=== PATIENT | male | born 1960 | race Two or more races ===

== ENCOUNTER 2024-12-12 15:25 | Emergency (ER) | payer OTHER, MEDICAID | END 2024-12-12 16:50 | disposition left against medical advice (07) | LOC: ER 15:25 | DX: M54.9 Dorsalgia, unspecified (principal); Z53.21 Procedure and treatment not carried out due to patient leaving prior to being seen by health care provider ==

== ENCOUNTER 2025-01-03 13:38 | Inpatient (IN) | payer OTHER, MEDICAID ==
[~2025-01-03] VITALS: Ht 165.1 cm; Wt 77.0 kg
--- NOTE | 2025-01-03 15:00 | ED.PDOC ---
Back pain HPI HPI Comments A 64 YEAR OLD MALE PRESENTS TO THE ED WITH COMPLAINT OF LOWER BACK PAIN THAT RADIATES DOWN LEFT LEG. PATIENT STATES HE HAS A HISTORY OF CHRONIC LOWER BACK PAIN AND SCIATICA AND HAS BEEN EXPERIENCING LOWER BACK PAIN THAT IS WORSE AND THAT IS NOW RADIATING DOWN HIS LEFT LEG FOR THE PAST 1 MONTH. PATIENT DENIES SADDLE ANESTHESIA, URINARY INCONTINENCE, BOWEL INCONTINENCE, FEVER, CHILLS, SHORTNESS OF BREATH, CHEST PAIN, ABDOMINAL PAIN, NAUSEA, VOMITING, HEADACHE, OR OTHER COMPLAINTS. NO OTHER SYMPTOMS OR MODIFYING FACTORS AT THIS TIME. PATIENT IS ALERT, ORIENTED X 4, AND HAS STEADY GAIT. Chief Complaint: Back Pain Time Seen by MD: 13:46 Reviewed Notes: Nurses Notes, Medications, Allergies Allergies: Coded Allergies: NO KNOWN ALLERGIES (Unverified , 01/03/25) Information Source: Patient Mode of Arrival: Wheelchair Timing: Weeks Duration: Since onset Location of Back pain: (B) Lumbar Radiates to: Anterior: (L) Buttocks, (L) Calf, (L) Thigh Radiates to: Posterior: (L) Buttocks, (L) Calf, (L) Thigh Radiates to: Medial: (L) Buttocks, (L) Calf, (L) Thigh Radiates to: Lateral: (L) Buttocks, (L) Calf, (L) Thigh Severity: Moderate Prehospital treatment: None Quality: Aching, Cramping Onset: Spontaneous History of: Chronic Back Pain Modifying Factors: Movement Associated signs and symptoms: None Past Medical History Past Medical History (Other): CHRONIC LOWER BACK PAIN, SCIATICA Surgical History: Denies all surgeries Family History Family History: Reviewed,noncontributory to illness Social History Smoker: Non-Smoker Alcohol: Denies ETOH Use Drugs: Denies Drug Use Lives In: Home Constitutional: denies: chills, diaphoresis, fatigue, fever, malaise, sweats, weakness, others EENTM: denies: blurred vision, double vision, ear bleeding, ear discharge, ear drainage, ear pain, ear ringing, eye pain, eye redness, hearing loss, mouth pain, mouth swelling, nasal discharge, nose bleeding, nose congestion, nose pain, photophobia, tearing, throat pain, throat swelling, voice changes, others Respiratory: denies: cough, hemoptysis, orthopnea, SOB at rest, shortness of breath, SOB with excertion, stridor, wheezing, others Cardiovascular: denies: chest pain, dizzy spells, diaphoresis, Dyspnea on exertion, edema, irregular heart beat, left arm pain, lightheadedness, palpitations, PND, syncope, others Gastrointestinal: denies: abdomen distended, abdominal pain, blood streaked bowels, constipated, diarrhea, dysphagia, difficulty swallowing, hematemesis, melena, nausea, poor appetite, poor fluid intake, rectal bleeding, rectal pain, vomiting, others Genitourinary: denies: burning, dysuria, flank pain, frequency, hematuria, incontinence, penile discharge, penile sore, pain, testicle pain, testicle swelling, urgency, others Neurological: denies: dizziness, fainting, headache, left sided numbness, left sided weakness, numbness, paresthesia, pre-existing deficit, right sided numbness, right sided weakness, seizure, speech problems, tingling, tremors, weakness, others Musculoskeletal: reports: back pain (LOWER BACK PAIN THAT RADIATES DOWN LEFT LEG), muscle pain; denies: gout, joint pain, joint swelling, muscle stiffness, neck pain, others Integumetry: denies: bruises, change in color, change in hair/nails, dryness, laceration, lesions, lumps, rash, wounds, others Allergic/Immunocompromised: denies: Difficulty Healing, Frequent Infections, Hives, Itching, others Hematologic/Lymphatic: denies: anemia, blood clots, easy bleeding, easy bruising, swollen glands, others Endocrine: denies: excessive hunger, excessive sweating, excessive thirst, excessive urination, flushing, intolerance to cold, intolerance to heat, unexplained weight gain, unexplained weight loss, others Psychiatric: denies: anxiety, bipolar disorder, depression, hopeless, panic disorder, schizophrenia, sleepless, suicidal, others All Other Systems: Reviewed and Negative Physical Exam General Appearance: No Apparent Distress, Normal HEENT: Normal ENT Inspection, PERRL/EOMI, Pharynx Normal, TMs Normal Neck: Full Range of Motion, Non-Tender, Normal, Normal Inspection Respiratory: Chest Non-Tender, Lungs Clear, No Accessory Muscle Use, No Respiratory Distress, Normal Breath Sounds Cardiovascular: No Edema, No JVD, No Murmur, No Gallop, Normal Peripheral Pulses, Regular Rate/Rhythm Breast Exam: Deferred Gastrointestinal: No Organomegaly, Non Tender, No Pulsatile Mass, Normal Bowel Sounds, Soft Genitalia: Deferred Pelvic: Deferred Rectal: Deferred Extremities: No calf tenderness, Normal capillary refill, Normal inspection, Normal range of motion, Non-tender, No pedal edema, Other (NO REDNESS, SWELLING, OR DVT SIGNS ON BILATERAL LOWER LEG. 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 Was a procedure done?: No Back Pain Differential Dx Differential Diagnosis: Fracture, Musculoskeletal Pain, Urolithiasis Other Differential Diagnosis DDD, SCIATICA PAIN, LUMBAR RADICULOPATHY X-Ray, Labs, Meds, VS Vital Signs Date Time Temp Pulse Resp B/P (MAP) Pulse Ox O2 Delivery O2 Flow Rate FiO2 01/03/25 16:32 98.2 88 18 105/68 (80) 97 98.2 01/03/25 16:32 88 18 97 Room Air 01/03/25 13:40 99.2 94 16 123/71 99 99.2 Lab Test 01/03/25 15:56 Range/Units White Blood Count 10.8 4.4-10.8 10^3/uL Red Blood Count 4.66 4.5-5.90 10^6/uL Hemoglobin 14.7 13.5-17.5 g/dL Hematocrit 42.4 41.0-53.0 % Mean Corpuscular Volume 91.1 80.0-100.0 fL Mean Corpuscular Hemoglobin 31.6 28.0-32.0 pg Mean Corpuscular Hemoglobin Concent 34.7 32.0-36.0 g/dL Red Cell Distribution Width 14.2 11.8-14.3 % Platelet Count 344 140-450 10^3/uL Mean Platelet Volume 7.7 6.9-10.8 fL Neutrophils (%) (Auto) 37.0-80.0 % Lymphocytes (%) (Auto) 10.0-50.0 % Monocytes (%) (Auto) 0.0-12.0 % Basophils (%) (Auto) 0.0-2.0 % Neutrophils # (Auto) 1.6-8.6 10 ^3/uL Lymphocytes # (Auto) 0.4-5.4 10 ^3/uL Monocytes # (Auto) 0-1.3 10 ^3/uL Differential Total Cells Counted 100.0 100 Neutrophils % (Manual) 65 37.0-80.0 Band Neutrophils % (Manual) 0 Lymphocytes % (Manual) 22 10.0-50.0 Monocytes % (Manual) 9 0-12 Eosinophils % (Manual) 2 0-7 Basophils % (Manual) 0 0.0-2.0 Metamyelocytes % (manual) 0 Myelocytes % (Manual) 0 Promyelocytes % (Manual) 0 Blast Cells % (Manual) 2 Reactive Lymphocytes 0 Smudge Cells 1 /100 WBC Platelet Estimate Adequate Sodium Level 137 136-145 mmol/L Potassium Level 4.0 3.5-5.1 mmol/L Chloride Level 100 98-107 mmol/L Carbon Dioxide Level 28 20-31 mmol/L Anion Gap 9 5-15 Blood Urea Nitrogen 38 H 9-23 mg/dL Creatinine 2.05 H 0.700-1.30 mg/dL Glomerular Filtration Rate Calc 36 >90 mL/min BUN/Creatinine Ratio 18.5 10.0-20.0 Serum Glucose 184 H 74-106 mg/dL Lactic Acid Level 1.5 0.4-2.0 mmol/L Calcium Level 11.4 H 8.7-10.4 mg/dL C-Reactive Protein High Sensitivity 0.50 <1.0 mg/dL Current Medications Medications (Trade) Dose Ordered Sig/Elham Route Start Time Stop Time Status Last Admin Ceftriaxone Sodium 50 ml @ 100 mls/hr ONCE ONCE IV 01/03/25 15:45 01/03/25 16:14 DC 01/03/25 16:49 Vancomycin HCl 250 ml @ 200 mls/hr ONCE ONCE IV 01/03/25 16:30 01/03/25 17:44 01/03/25 17:06 EXAM: CT LS SPINE WO CONTRAST INDICATION: LOW BACK PAIN TO LOWER LEGS EXAM DATE: 01/03/2025 02:58 PM COMPARISON: None TECHNIQUE: Multiple axial CT images of the lumbar spine were obtained using bone algorithm. Axial and coronal reformatting was done. Bone and soft tissue windows were reviewed. Radiation Dose Information: CT Dose: CTDI volume is 24.37 mGy. Dose-length product is 715.92 mGy*cm Findings: There are 5 nonrib-bearing lumbar vertebrae. There is no evidence of an acute fracture or spondylolisthesis. Moderate spondylosis with multilevel disc osteophyte complexes. Marked degenerative /erosive changes at the level of L2/L3. Severe degenerative disc disease at L3/L4. No spinal canal stenosis. The alignment is within normal limits. The paraspinal soft tissues appear within normal limits. The visualized portions of the abdomen are unremarkable. Impression: 1. No evidence of an acute fracture. 2. Marked degenerative /erosive changes at the level of L2/L3. Can not exclude osteodiscitis. Recommend contrast-enhanced MRI for further evaluation. 3. Moderate degenerative changes of the lumbar spine with severe degenerative disc disease at L3/L4. ATED BY: TAMEKA MANRIQUE DO DICTATED DATE/TIME: 01/03/25 153 SIGNED BY: TAMEKA MANRIQUE DO SIGNED DATE/TIME: 01/03/25 153 CC: X-Ray, Labs, Meds, VS Comment EXTERNAL MEDICAL RECORDS REVIEWED: [NONE] INDEPENDENT HISTORIANS: [NONE] SOCIAL DETERMINANTS OF HEALTH: [NONE] LABS ORDERED: CBC, BMP, LACTIC ACID W/REFLEX, BLOOD CULTURE, CRP REVIEWED AND INTERPRETED RESULTS: IMAGING ORDERED: CT LS-SPINE TREATMENTS ORDERED: ROCEPHIN 1 G IV, VANCOMYCIN 1 G IV PROCEDURES PERFORMED: NONE CRITICAL CARE TIME: NONE I HAVE DISCUSSED THE PATIENT WITH THE ATTENDING PHYSICIAN DR. KATHLEEN ARCHULETA AND SHE AGREES WITH THE PATIENT'S PLAN OF CARE. UPON MY PHYSICAL EXAMINATION, THE PATIENT WAS WELL IN APPEARANCE AND HAD NO RESPIRATORY DISTRESS AT THIS TIME. A CT SCAN OF THE PATIENT'S LS SPINE WAS ORDERED WHICH REVEALED MARKED DEGENERATIVE/EROSIVE CHANGES AT THE LEVEL OF L2/L3. CAN NOT EXCLUDE OSTEODISCITIS, AND MODERATE DEGENERATIVE CHANGES OF THE LUMBAR SPINE WITH SEVERE DEGENERATIVE DISC DISEASE AT L3/L4. DUE TO THE CT SCAN RESULTS, I HAVE DETERMINED THE PATIENT NEEDS TO BE ADMITTED FOR FURTHER TREATMENT AND EVALUATION VIA MRI STUDY. THE ON-CALL HOSPITALIST WILL BE CONTACTED FOR ADMISSION OF THIS PATIENT. Images Reviewed?: Images reviewed and evaluated by me Time of 1ST Reevaluation: 17:15 Reevaluation 1ST: Unchanged Patient Education/Counseling: Diagnosis, Treatment Family Education/Counseling: Diagnosis, Treatment SEPSIS Sepsis Screen Date sepsis recognized/suspect: Jan 03, 2025 Time Sepsis recognized/suspect: 2 Recent Procedure: No On Antibiotic Therapy: No Respiratory Rate >20: No Heart Rate >90: Yes Temp<36 C (96.8 F) or >38.3 C: No SBP <90 or MAP <65 mmHG: No New Acute Mental Status Change: No Is the patient on CPAP, BIPAP,: No Physician Orders Ls Spine Wo Contrast (01/03/25 14:56) Blood Culture (01/03/25 15:43) Heplock Iv (01/03/25 ) Vancomycin 1gm/250ml Kit (01/03/25 16:30) Vital Signs Date Time Temp Pulse Resp B/P (MAP) Pulse Ox O2 Delivery O2 Flow Rate FiO2 01/03/25 16:32 98.2 88 18 105/68 (80) 97 98.2 01/03/25 16:32 88 18 97 Room Air 01/03/25 13:40 99.2 94 16 123/71 99 99.2 Laboratory Tests Test 01/03/25 15:56 Lactic Acid Level 1.5 mmol/L (0.4-2.0) White Blood Count 10.8 10^3/uL (4.4-10.8) Medications Medications Dose Ordered Sig/Elham Route Start Time Stop Time Status Last Admin Dose Admin Ceftriaxone Sodium 50 ml @ 100 mls/hr ONCE ONCE IV 01/03/25 15:45 01/03/25 16:14 DC 01/03/25 16:49 Vancomycin HCl 250 ml @ 200 mls/hr ONCE ONCE IV 01/03/25 16:30 01/03/25 17:44 01/03/25 17:06 Departure 1 Departure Time of Disposition: 17:15 Impression: Primary Impression: Discitis of lumbar region Additional Impressions: DDD (degenerative disc disease), lumbar Qualified Codes: M51.362 - Other intervertebral disc degeneration, lumbar region with discogenic back pain and lower extremity pain Lumbar radiculopathy Chronic kidney disease Qualified Codes: N18.32 - Chronic kidney disease, stage 3b Disposition: 09 ADMITTED INPATIENT Condition: Serious Critical Care Note Critical Care Time?: No Stability Stability form required: Yes Unstable for transfer: Requires medication, ED Physician Assesment, Possible rapid decline I personally scribed for IZZY MORA ([email or web address]) on 01/03/25 at 15:00. Electronically submitted by Ant Glaser ([employer]). I personally scribed for IZZY MORA ([email or web address]) on 01/03/25 at 15:07. Electronically submitted by Ant Glaser ([employer]). I personally scribed for IZZY MORA ([email or web address]) on 01/03/25 at 16:16. Electronically submitted by Ant Glaser ([employer]). IZZY MORA Jan 03, 2025 15:00
--- NOTE | 2025-01-03 15:40 | DVH ---
EXAM: CT LS SPINE WO CONTRAST INDICATION: LOW BACK PAIN TO LOWER LEGS EXAM DATE: 01/03/2025 02:58 PM COMPARISON: None TECHNIQUE: Multiple axial CT images of the lumbar spine were obtained using bone algorithm. Axial and coronal reformatting was done. Bone and soft tissue windows were reviewed. Radiation Dose Information: CT Dose: CTDI volume is 24.37 mGy. Dose-length product is 715.92 mGy*cm Findings: There are 5 nonrib-bearing lumbar vertebrae. There is no evidence of an acute fracture or spondylolisthesis. Moderate spondylosis with multilevel disc osteophyte complexes. Marked degenerative /erosive changes at the level of L2/L3. Severe degenerative disc disease at L3/L4 . No spinal canal stenosis. The alignment is within normal limits. The paraspinal soft tissues appear within normal limits. The v isualized portions of the abdomen are unremarkable. Impression: 1. No evidence of an acute fracture. 2. Marked degenerative /erosive changes at the level of L2/L3. Can not exclude osteodiscitis. Recomm end contrast-enhanced MRI for further evaluation. 3. Moderate degenerative changes of the lumbar spine with severe degenerative disc disease at L3/L4.
[2025-01-03] MEDS ORDERED: VANCOMYCIN 1GM/200ML PM 200 ML IV ONE (15:45)
[2025-01-03 16:17] LABS: Hematocrit 42.4 % (41.0-53.0); Hemoglobin 14.7 g/dL (13.5-17.5); Mean Corpuscular Hemoglobin 31.6 pg (28.0-32.0); Mean Corpuscular Volume 91.1 fL (80.0-100.0)
[2025-01-03 16:23] LABS: Chloride 100 mmol/L (98-107); Potassium 4.0 mmol/L (3.5-5.1); Sodium 137 mmol/L (136-145)
[2025-01-03 16:24] LABS: Anion Gap 9 (5-15); Carbon Dioxide 28 mmol/L (20-31)
[2025-01-03 16:29] LABS: BUN/Creatinine Ratio 18.5 (10.0-20.0)
[2025-01-03 16:48] LABS: Blood Urea Nitrogen 38 mg/dL (9-23); Calcium 11.4 mg/dL (8.7-10.4); Glucose 184 mg/dL (74-106)
[2025-01-03] MEDS: cefTRIAXone 1GM/50ML D5W 50 ML IV ONE (16:49)
[2025-01-03 16:53] LABS: Smudge Cells 1 /100 WBC; Total Cells Counted 100.0 (100)
[2025-01-03] MEDS: VANCOMYCIN 1GM/250ML KIT 250 ML IV ONE (17:06)
[2025-01-03] MEDS ORDERED: ONDANSETRON HCL 4 MG/2 ML VIAL IV PRN (18:00)
[2025-01-03] MEDS ORDERED: DEXTROSE (50%) 50ML SYRG IV PRN (18:00)
[2025-01-03] MEDS ORDERED: ACETAMINOPHEN 325 MG TAB PO PRN (18:00)
[2025-01-03] MEDS ORDERED: MORPHINE SULFATE INJ 2 MG/ml SYRG IV PRN (18:00)
[2025-01-03 18:35] VITALS: BP 94/47; PULSE 71; PULSE 77; RESP 14; RESP 15; TEMP 98.2; O2SAT 93; O2SAT 95
[2025-01-03] MEDS ORDERED: LISI40TA16 PO (18:53)
[2025-01-03] MEDS ORDERED: MIRT-94 PO (18:53)
[2025-01-03] MEDS ORDERED: VENL37.588 PO (18:53)
[2025-01-03] MEDS ORDERED: GABA250S7 PO (19:25)
[2025-01-03] MEDS ORDERED: ASPI81CH74 PO (19:27)
[2025-01-03] MEDS ORDERED: MELA3TAB27 PO (19:27)
--- NOTE | 2025-01-03 19:54 | DVHINCON2 ---
ALEX ZEPEDA NP 01/03/251953: Consultation - Spinal Surgery Date Seen: Jan 03, 2025 Referring Physician Referring Physician Attending Doctor: Herbert Camp [facility] Reason for Consultation Low back pain, history of back pain chronically History of Present Illness History of Present Illness A 64 YEAR OLD MALE PRESENTS TO THE ED WITH COMPLAINT OF LOWER BACK PAIN THAT RADIATES DOWN LEFT LEG. PATIENT STATES HE HAS A HISTORY OF CHRONIC LOWER BACK PAIN AND SCIATICA AND HAS BEEN EXPERIENCING LOWER BACK PAIN THAT IS WORSE AND THAT IS NOW RADIATING DOWN HIS LEFT LEG FOR THE PAST 1 MONTH. PATIENT DENIES SADDLE ANESTHESIA, URINARY INCONTINENCE, BOWEL INCONTINENCE, FEVER, CHILLS, SHORTNESS OF BREATH, CHEST PAIN, ABDOMINAL PAIN, NAUSEA, VOMITING, HEADACHE, OR OTHER COMPLAINTS. NO OTHER SYMPTOMS OR MODIFYING FACTORS AT THIS TIME. PATIENT I S ALERT, ORIENTED X 4, AND HAS STEADY GAIT. Location of Back pain: (B) Lumbar Radiates to: Anterior: (L) Buttocks, (L) Calf, (L) Thigh Radiates to: Posterior: (L) Buttocks, (L) Calf, (L) Thigh Radiates to: Medial: (L) Buttocks, (L) Calf, (L) Thigh Radiates to: Lateral: (L) Buttocks, (L) Calf, (L) Thigh Severity: Moderate Quality: Aching, Cramping Onset: Spontaneous History of: Chronic Back Pain Modifying Factors: Movement Associated signs and symptoms: None Spine H&P Patient states that he started having difficulty ambulating as in decreasing distances about a year ago he started noticing numbness and burning in his legs as he walked slowly the distance started shortening. Did have an EMG in [place] many years ago that showed that he did have peripheral artery disease and diabetic neuropathy to all extremities. He is using a wheelchair at this time due to his inability to walk significant distances even just to get around to do his ADLs. He started having more low back pain a month ago and worsening about three weeks ago. Patient has not had physical therapy or any pain management, he is open to the idea of having surgery if it will help him just be able to get around and do his activities of daily living without a wheelchair. Past Medical/Surgical History Past Medical/Surgical History Past Medical History Past Medical History Past Medical History (Other): CHRONIC LOWER BACK PAIN, SCIATICA Surgical History: Denies all surgeries Family and Social History Family and Social History Family History Family History: Reviewed,noncontributory to illness Social History Smoker: Non-Smoker Alcohol: Denies ETOH Use Drugs: Denies Drug Use Lives In: Home Allergies and medications Allergies: Coded Allergies: NO KNOWN ALLERGIES (Unverified , 01/03/25) Home Meds Reported Medications Aspirin (Aspirin 81 Low Dose) 81 Mg Chw, 81 MG PO, TAB.CHEW 01/03/25 Melatonin (KP MELATONIN) 3 Mg Tab, 7.5 MG PO HS, TAB 01/03/25 Gabapentin (GABAPENTIN) 250 Mg/5 Ml Tisha, 300 MG PO DAILY, ML 01/03/25 Venlafaxine Hcl (Venlafaxine Hcl Er) 37.5 Mg Cap, 1 CAP PO DAILY, #30 CAP 2 Refills 01/03/25 Mirtazapine (REMERON) 30 Mg Tab, 1 TAB PO QPM, #30 TAB 1 Refill 01/03/25 Lisinopril (Lisinopril) 40 Mg Tab, 1 TAB PO DAILY, #30 TAB 5 Refills 01/03/25 Review of systems Review of Systems: HEENT:Normal, CVS:Normal, RESPIRATORY:Normal, GI:Normal, :Normal, MSK:Normal (able to ambulate), NEURO:Abnormal (lbp, left leg pain) Examination Vital signs imaging: MRI lumbar pending 01/03/25 @ 19:46 ORDERING PHYSICIAN: IZZY MORA PROCEDURE(s): LS2CT - LS SPINE WO CONTRAST REASON: LOW BACK PAIN TO LOWER LEGS ORDER NUMBER(s): [id number], ACCESSION NUMBER(s): [id number] EXAM: CT LS SPINE WO CONTRAST INDICATION: LOW BACK PAIN TO LOWER LEGS EXAM DATE: 01/03/2025 02:58 PM COMPARISON: None TECHNIQUE: Multiple axial CT images of the lumbar spine were obtained using bone algorithm. Axial and coronal reformatting was done. Bone and soft tissue windows were reviewed. Radiation Dose Information: CT Dose: CTDI volume is 24.37 mGy. Dose-length product is 715.92 mGy*cm Findings: There are 5 nonrib-bearing lumbar vertebrae. There is no evidence of an acute fracture or spondylolisthesis. Moderate spondylosis with multilevel disc osteophyte complexes. Marked degenerative /erosive changes at the level of L2/L3. Severe degenerative disc disease at L3/L4. No spinal canal stenosis. The alignment is within normal limits. The paraspinal soft tissues appear within normal limits. The visualized portions of the abdomen are unremarkable. Impression: 1. No evidence of an acute fracture. 2. Marked degenerative /erosive changes at the level of L2/L3. Can not exclude osteodiscitis. Recommend contrast-enhanced MRI for further evaluation. 3. Moderate degenerative changes of the lumbar spine with severe degenerative disc disease at L3/L4. Vital Signs Date Time Temp Pulse Resp B/P (MAP) Pulse Ox O2 Delivery O2 Flow Rate FiO2 01/03/25 19:16 Room Air* 0 21 01/03/25 18:35 98.2 77 15 94/47 (57) 93 98.2 Medications Current Medications Medications (Trade) Dose Ordered Sig/Elham Route PRN Reason Start Time Stop Time Status Last Admin Cefepime HCl 50 ml @ 12.5 mls/hr Q12HR IV 01/03/25 22:00 Furosemide (Lasix Tablet) 40 mg DAILY PO 01/04/25 10:00 Empaglifozin (Jardiance) 10 mg DAILY PO 01/04/25 10:00 Metoprolol Tartrate (Lopressor Tablet) 50 mg BID PO 01/03/25 22:00 Albuterol (Ventolin Medneb) 2.5 mg Q6HPRN PRN NEB SHORTNESS OF BREATH 01/03/25 18:00 Gabapentin (Neurontin Capsule) 300 mg TID PO 01/03/25 22:00 Diagnostic Test (Pha) (Accu-Chek Comfort Curve T) 1 strip ACHS 01/03/25 22:00 Insulin Human Regular (InsuLIN R) ACHS SC 01/03/25 22:00 Dextrose 50 ml UD PRN IV Blood Sugar LESS THAN 60 01/03/25 18:00 Acetaminophen/ Hydrocodone Bitart ([place] 5/325MG Tab) 1 tab Q4HP PRN PO MODERATE PAIN (4-6 PAIN SCALE) 01/03/25 18:00 Ondansetron HCl (Zofran) 4 mg Q4HP PRN IV NAUSEA / VOMITING 01/03/25 18:00 Acetaminophen (Tylenol Tablet) 650 mg Q6HP PRN PO PAIN SCALE 1-3 OR TEMP>100.4 01/03/25 18:00 Morphine Sulfate 2 mg Q4HPRN PRN IV SEVERE PAIN (7-10 PAIN SCALE) 01/03/25 18:00 Laboratory Labs Test 01/03/25 17:17 01/03/25 15:56 Range/Units POC Glucose 163 H 70-106 mg/dl White Blood Count 10.8 4.4-10.8 10^3/uL Red Blood Count 4.66 4.5-5.90 10^6/uL Hemoglobin 14.7 13.5-17.5 g/dL Hematocrit 42.4 41.0-53.0 % Mean Corpuscular Volume 91.1 80.0-100.0 fL Mean Corpuscular Hemoglobin 31.6 28.0-32.0 pg Mean Corpuscular Hemoglobin Concent 34.7 32.0-36.0 g/dL Red Cell Distribution Width 14.2 11.8-14.3 % Platelet Count 344 140-450 10^3/uL Mean Platelet Volume 7.7 6.9-10.8 fL Neutrophils (%) (Auto) 37.0-80.0 % Lymphocytes (%) (Auto) 10.0-50.0 % Monocytes (%) (Auto) 0.0-12.0 % Basophils (%) (Auto) 0.0-2.0 % Neutrophils # (Auto) 1.6-8.6 10 ^3/uL Lymphocytes # (Auto) 0.4-5.4 10 ^3/uL Monocytes # (Auto) 0-1.3 10 ^3/uL Differential Total Cells Counted 100.0 100 Neutrophils % (Manual) 65 37.0-80.0 Band Neutrophils % (Manual) 0 Lymphocytes % (Manual) 22 10.0-50.0 Monocytes % (Manual) 9 0-12 Eosinophils % (Manual) 2 0-7 Basophils % (Manual) 0 0.0-2.0 Metamyelocytes % (manual) 0 Myelocytes % (Manual) 0 Promyelocytes % (Manual) 0 Blast Cells % (Manual) 2 Reactive Lymphocytes 0 Smudge Cells 1 /100 WBC Platelet Estimate Adequate Sodium Level 137 136-145 mmol/L Potassium Level 4.0 3.5-5.1 mmol/L Chloride Level 100 98-107 mmol/L Carbon Dioxide Level 28 20-31 mmol/L Anion Gap 9 5-15 Blood Urea Nitrogen 38 H 9-23 mg/dL Creatinine 2.05 H 0.700-1.30 mg/dL Glomerular Filtration Rate Calc 36 >90 mL/min BUN/Creatinine Ratio 18.5 10.0-20.0 Serum Glucose 184 H 74-106 mg/dL Lactic Acid Level 1.5 0.4-2.0 mmol/L Calcium Level 11.4 H 8.7-10.4 mg/dL C-Reactive Protein High Sensitivity 0.50 <1.0 mg/dL Examination: GENERAL:Normal, HEENT:Normal, NECK:Normal, LUNGS:Normal, CVS:Normal, ABDOMEN:Normal, MSK:Abnormal (Weakness bilateral lower legs, mostly to the hips and thighs bilaterally bilateral pushing of the toes is only a 3/5 pulling as a 5/5), SKIN:Normal, NEURO:Abnormal (Bilateral feet are numb), :Normal Problem List/Assessment/Plan Problems: (1) Lumbar stenosis with neurogenic claudication (2) DDD (degenerative disc disease), lumbar Assessment and Plan Marked degenerative /erosive changes at the level of L2/L3. Can not exclude osteodiscitis. Moderate degenerative changes of the lumbar spine with severe degenerative disc disease at L3/L4. WB not elevated MRI lumbar pending 01/03/25 @17:43 Continue supportive care per admitting team discretion recommend adequate pain control, also muscle relaxer for muscle spasms Once pain effectively controlled PT evaluation WBAT Further spine recommendations once MRI completed Call with questions Yue Zepeda [facility] Orthopaedic Spine Surgery nurse practitioner For Dr Grace Eckert Patient was examined, chart reviewed, labs evaluated, and diagnostic studies and findings analyzed. Case was discussed with Dr. Amren Eckert who formulated the plan of care. This medical document was created using an electronic medical record system with [employer] dictation system. Although this document has been carefully reviewed, there might still be some phonetic and typographical errors. These areas are purely typographical due to imperfections of the software programs, and do not reflect any compromise in the patient's medical care. Plan discussed with Plan discussed with: Patient, Other (ED RN) ARMEN ECKERT MD 01/06/25 1044: Consultation - Spinal Surgery Date Seen: Jan 06, 2025 Review of systems Review of Systems: HEENT:Normal, CVS:Normal, RESPIRATORY:Normal, GI:Normal, :Normal, MSK:Abnormal, NEURO:Abnormal Examination Examination: GENERAL:Normal, HEENT:Normal, NECK:Normal, LUNGS:Normal, CVS:Normal, MSK:Abnormal, SKIN:Abnormal, NEURO:Abnormal, :Normal Problem List/Assessment/Plan Problems: (1) Discitis of lumbar region Assessment and Plan Upon review of MRI , it is unlikely that there is an epidural abscess but rather an osteomyelitis/discitis this is to be treated conservatively with iv antibiotics for a minimum of 6 w eeks at that time, repeat ESR/CRP if normal, then convert to po antibiotics until MRI findings are normal Plan discussed with Plan discussed with: Patient KATELYNALEX NP Jan 03, 2025 19:54 ARMEN ECKERT MD Jan 06, 2025 10:44
[2025-01-03 21:08] VITALS: BP 123/71; PULSE 94; RESP 16; O2SAT 97
--- NOTE | 2025-01-03 21:08 | DVHHP2 ---
History of Present Illness Reason for Visit: Lower back pain History of Present Illness 64-year-old male presents for evaluation of lower back pain. Patient endorses a one month history of worsening lower back pain which has exacerbated over the past three days. Patient reports having pain with ambulation. Denies numbness or tingling to lower extremities. No urinary or bowel incontinence. Past Medical History CHF, diabetes mellitus, hypertension Past Surgical History Denies Family History Noncontributory Smoke: No ALCOHOL: none Drugs: None Lives: with Family Review of Systems Review of Systems Review of systems are currently negative otherwise addressed in HPI. Allergies: Coded Allergies: NO KNOWN ALLERGIES (Unverified , 01/03/25) Medications Current Medications Medications Dose Ordered Sig/Elham Route Start Time Stop Time Status Last Admin Dose Admin Cefepime HCl 50 ml @ 12.5 mls/hr Q12HR IV 01/03/25 22:00 Furosemide 40 mg DAILY PO 01/04/25 10:00 Empaglifozin 10 mg DAILY PO 01/04/25 10:00 Metoprolol Tartrate 50 mg BID PO 01/03/25 22:00 Albuterol 2.5 mg Q6HPRN PRN NEB 01/03/25 18:00 Gabapentin 300 mg TID PO 01/03/25 22:00 Diagnostic Test (Pha) 1 strip ACHS 01/03/25 22:00 Insulin Human Regular ACHS SC 01/03/25 22:00 Dextrose 50 ml UD PRN IV 01/03/25 18:00 Acetaminophen/ Hydrocodone Bitart 1 tab Q4HP PRN PO 01/03/25 18:00 Ondansetron HCl 4 mg Q4HP PRN IV 01/03/25 18:00 Acetaminophen 650 mg Q6HP PRN PO 01/03/25 18:00 Morphine Sulfate 2 mg Q4HPRN PRN IV 01/03/25 18:00 Exam Vital Signs Vital Signs Date Time Temp Pulse Resp B/P (MAP) Pulse Ox O2 Delivery O2 Flow Rate FiO2 01/03/25 20:00 98.0 76 15 125/64 (84) 95 98.0 01/03/25 19:20 Room Air* 0 21 Exam Gen: 64-year-old male in mild distress Skin: Warm, dry, normal color and texture, no rash. HEENT: Normocephalic atraumatic, mucous membranes moist and pink. Neck: Cervical and supraclavicular nodes normal without enlargement, trachea is midline, thyroid gland is normal without masses. Pulmonary: Clear to auscultation and percussion bilaterally. Cardiac: Regular rate and rhythm. No murmur Abdomen: Soft, nontender, nondistended, bowel sounds present all 4 quadrants, no guarding, no rigidity, no organomegaly. Extremities: No cyanosis, clubbing, no edema Neuro: Cranial nerves II through XII grossly intact, normal affect and speech, no focal motor deficits. Labs/Xrays ORDERING PHYSICIAN: IZZY MORA PROCEDURE(s): LS2CT - LS SPINE WO CONTRAST REASON: LOW BACK PAIN TO LOWER LEGS ORDER NUMBER(s): [id number], ACCESSION NUMBER(s): [id number] EXAM: CT LS SPINE WO CONTRAST INDICATION: LOW BACK PAIN TO LOWER LEGS EXAM DATE: 01/03/2025 02:58 PM COMPARISON: None TECHNIQUE: Multiple axial CT images of the lumbar spine were obtained using bone algorithm. Axial and coronal reformatting was done. Bone and soft tissue windows were reviewed. Radiation Dose Information: CT Dose: CTDI volume is 24.37 mGy. Dose-length product is 715.92 mGy*cm Findings: There are 5 nonrib-bearing lumbar vertebrae. There is no evidence of an acute fracture or spondylolisthesis. Moderate spondylosis with multilevel disc osteophyte complexes. Marked degenerative /erosive changes at the level of L2/L3. Severe degenerative disc disease at L3/L4. No spinal canal stenosis. The alignment is within normal limits. The paraspinal soft tissues appear within normal limits. The visualized portions of the abdomen are unremarkable. Impression: 1. No evidence of an acute fracture. 2. Marked degenerative /erosive changes at the level of L2/L3. Can not exclude osteodiscitis. Recommend contrast-enhanced MRI for further evaluation. 3. Moderate degenerative changes of the lumbar spine with severe degenerative disc disease at L3/L4. Labs Test 01/03/25 17:17 01/03/25 15:56 Range/Units POC Glucose 163 H 70-106 mg/dl White Blood Count 10.8 4.4-10.8 10^3/uL Red Blood Count 4.66 4.5-5.90 10^6/uL Hemoglobin 14.7 13.5-17.5 g/dL Hematocrit 42.4 41.0-53.0 % Mean Corpuscular Volume 91.1 80.0-100.0 fL Mean Corpuscular Hemoglobin 31.6 28.0-32.0 pg Mean Corpuscular Hemoglobin Concent 34.7 32.0-36.0 g/dL Red Cell Distribution Width 14.2 11.8-14.3 % Platelet Count 344 140-450 10^3/uL Mean Platelet Volume 7.7 6.9-10.8 fL Neutrophils (%) (Auto) 37.0-80.0 % Lymphocytes (%) (Auto) 10.0-50.0 % Monocytes (%) (Auto) 0.0-12.0 % Basophils (%) (Auto) 0.0-2.0 % Neutrophils # (Auto) 1.6-8.6 10 ^3/uL Lymphocytes # (Auto) 0.4-5.4 10 ^3/uL Monocytes # (Auto) 0-1.3 10 ^3/uL Differential Total Cells Counted 100.0 100 Neutrophils % (Manual) 65 37.0-80.0 Band Neutrophils % (Manual) 0 Lymphocytes % (Manual) 22 10.0-50.0 Monocytes % (Manual) 9 0-12 Eosinophils % (Manual) 2 0-7 Basophils % (Manual) 0 0.0-2.0 Metamyelocytes % (manual) 0 Myelocytes % (Manual) 0 Promyelocytes % (Manual) 0 Blast Cells % (Manual) 2 Reactive Lymphocytes 0 Smudge Cells 1 /100 WBC Platelet Estimate Adequate Sodium Level 137 136-145 mmol/L Potassium Level 4.0 3.5-5.1 mmol/L Chloride Level 100 98-107 mmol/L Carbon Dioxide Level 28 20-31 mmol/L Anion Gap 9 5-15 Blood Urea Nitrogen 38 H 9-23 mg/dL Creatinine 2.05 H 0.700-1.30 mg/dL Glomerular Filtration Rate Calc 36 >90 mL/min BUN/Creatinine Ratio 18.5 10.0-20.0 Serum Glucose 184 H 74-106 mg/dL Lactic Acid Level 1.5 0.4-2.0 mmol/L Calcium Level 11.4 H 8.7-10.4 mg/dL C-Reactive Protein High Sensitivity 0.50 <1.0 mg/dL SEPSIS Sepsis Screen Date sepsis recognized/suspect: Jan 03, 2025 Time Sepsis recognized/suspect: 2010 Recent Procedure: No On Antibiotic Therapy: Yes Respiratory Rate >20: No Heart Rate >90: No Temp<36 C (96.8 F) or >38.3 C: No SBP <90 or MAP <65 mmHG: No New Acute Mental Status Change: No Is the patient on CPAP, BIPAP,: No Physician Orders Ls Spine Wo Contrast (01/03/25 14:56) Blood Culture (01/03/25 15:43) Heplock Iv (01/03/25 ) Cefepime 1gm/ 50ml (Maxipime 1gm/50ml) (01/03/25 22:00) Furosemide Tablet (Lasix Tablet) (01/04/25 10:00) Empagliflozin (Jardiance) (01/04/25 10:00) Metoprolol Tartrate Tablet (Lopressor Ta (01/03/25 22:00) Albuterol Medneb (Ventolin Medneb) (01/03/25 18:00) Gabapentin Capsule (Neurontin Capsule) (01/03/25 22:00) *[facility] (01/03/25 17:50) * Orthopedic Consult (01/03/25 17:50) Lumbar Spine Wo Contrast (01/03/25 17:50) Basic Metabolic Panel (01/04/25 04:00) Glucose Blood (Accu-Chek Comfort Curve T (01/03/25 22:00) Insulin R (Human) (Insulin R) (01/03/25 22:00) Dextrose 50% Syringe (01/03/25 18:00) Admit (01/03/25 17:50) Hydrocodone-Acet 5/325mg Tab ([place] 5/32 (01/03/25 18:00) Ondansetron Hcl (Zofran) (01/03/25 18:00) Complete Blood Count (01/04/25 04:00) Cardiac Diet-2gna,Lofat,Lochol (01/03/25 Dinner) Condition: Stable (01/03/25 17:50) Acetaminophen Tablet (Tylenol Tablet) (01/03/25 18:00) Bedrest With Bathroom Privileg (01/03/25 17:50) Morphine Sulfate Injection (01/03/25 18:00) Pt Request For Service (01/03/25 17:50) Vital Signs Date Time Temp Pulse Resp B/P (MAP) Pulse Ox O2 Delivery O2 Flow Rate FiO2 01/03/25 20:00 98.0 76 15 125/64 (84) 95 98.0 01/03/25 19:20 Room Air* 0 21 01/03/25 19:16 Room Air* 0 21 01/03/25 18:35 98.2 77 15 94/47 (63) 93 98.2 01/03/25 18:35 71 14 95 Room Air* 0 21 01/03/25 18:30 73 13 94/47 (63) 95 01/03/25 16:32 98.2 88 18 105/68 (80) 97 98.2 01/03/25 16:32 88 18 97 Room Air 01/03/25 13:40 99.2 94 16 123/71 99 99.2 Laboratory Tests Test 01/03/25 15:56 Lactic Acid Level 1.5 mmol/L (0.4-2.0) White Blood Count 10.8 10^3/uL (4.4-10.8) Medications Medications Dose Ordered Sig/Elham Route Start Time Stop Time Status Last Admin Dose Admin Ceftriaxone Sodium 50 ml @ 100 mls/hr ONCE ONCE IV 01/03/25 15:45 01/03/25 16:14 DC 01/03/25 16:49 100 MLS/HR Vancomycin HCl 250 ml @ 200 mls/hr ONCE ONCE IV 01/03/25 16:30 01/03/25 17:44 DC 01/03/25 17:06 200 MLS/HR Assessment/Plan Assessment/Plan Assessment Lumbar radiculopathy Rule out osteodiscitis Diabetes mellitus Hypertension Acute kidney injury Plan Admit the patient [place] [facility] [place] Orthopedic consultation Nephrology consult Cefepime Pain management Physical therapy eval Resume home medications Continue treatment per orders Plan discussed with: Patient My Orders Orders - MARIN OVALLES AGACNP Procedure Category Date Status Time Cefepime 1gm/ 50ml PHA 01/03/25 In Process (Maxipime 1gm/50ml) 22:00 Furosemide Tablet PHA 01/04/25 In Process (Lasix Tablet) 10:00 Empagliflozin PHA 01/04/25 In Process (Jardiance) 10:00 Metoprolol Tartrate PHA 01/03/25 In Process Tablet (Lopressor Ta 22:00 Albuterol Medneb PHA 01/03/25 In Process (Ventolin Medneb) 18:00 Gabapentin Capsule PHA 01/03/25 In Process (Neurontin Capsule) 22:00 *[facility] CONS 01/03/25 Transmitted -[place] 17:50 * Orthopedic Consult CONS 01/03/25 Transmitted 17:50 Lumbar Spine Wo MRI 01/03/25 Logged Contrast 17:50 Basic Metabolic Panel LAB 01/04/25 Verified 04:00 Glucose Blood PHA 01/03/25 In Process (Accu-Chek Comfort 22:00 Insulin R (Human) PHA 01/03/25 In Process (Insulin R) 22:00 Dextrose 50% Syringe PHA 01/03/25 In Process 18:00 Admit ADMIT 01/03/25 Transmitted 17:50 Hydrocodone-Acet PHA 01/03/25 In Process 5/325mg Tab ([place] 18:00 Ondansetron Hcl PHA 01/03/25 In Process (Zofran) 18:00 Complete Blood Count LAB 01/04/25 Verified 04:00 Cardiac DIET 01/03/25 Transmitted Diet-2gna,Lofat,Lochol Dinner Condition: Stable JAYDA 01/03/25 In Process 17:50 Acetaminophen Tablet PHA 01/03/25 In Process (Tylenol Tablet) 18:00 Bedrest With Bathroom JAYDA 01/03/25 In Process Privileg 17:50 Morphine Sulfate PHA 01/03/25 In Process Injection 18:00 Pt Request For Service PT 01/03/25 Logged 17:50 Date of Service: Jan 03, 2025 Billing Provider: MARIN OVALLES Common Visit Codes: [id number] INP/OBS CARE (HIGH) MARIN OVALLES Jan 03, 2025 21:08
[2025-01-03 21:22] VITALS: BP 96/41; PULSE 76; RESP 17; TEMP 97.5; O2SAT 92
[2025-01-03] MEDS: METOPROLOL TARTRATE 50 MG TAB PO SCH (22:00)
[2025-01-03] MEDS: ACCU-CHEK COMFORT CURVE STRIP VI SCH (22:00)
[2025-01-03] MEDS ORDERED: GABAPENTIN 300 MG CAP PO SCH (22:00)
[2025-01-03] MEDS: MELATONIN 5 MG TAB PO ONE (22:16)
[2025-01-03] MEDS: GABAPENTIN 300 MG CAP PO SCH (22:17)
[2025-01-03] MEDS: MIRTAZAPINE 30 MG TAB PO SCH (22:20)
[2025-01-03] MEDS: InsuLIN REG 1unit/0.01ml Soln (100units/ml) SC SCH (22:27)
[2025-01-03] MEDS: CEFEPIME 1GM/ 50ML 50 ML IV SCH (23:11)
[2025-01-04] VITALS (9 sets, daily range): BP systolic 102–143; BP diastolic 41–76; PULSE 69–84; RESP 14–18; TEMP 97.6–98.9; O2SAT 93–98
[2025-01-04 08:11] LABS: Hematocrit 43.6 % (41.0-53.0); Hemoglobin 14.8 g/dL (13.5-17.5); Mean Corpuscular Hemoglobin 31.1 pg (28.0-32.0); Mean Corpuscular Volume 91.7 fL (80.0-100.0)
[2025-01-04 08:17] LABS: Chloride 105 mmol/L (98-107); Potassium 4.0 mmol/L (3.5-5.1); Sodium 141 mmol/L (136-145)
[2025-01-04 08:18] LABS: Anion Gap 10 (5-15); Carbon Dioxide 26 mmol/L (20-31)
[2025-01-04 08:20] LABS: Calcium 10.4 mg/dL (8.7-10.4)
[2025-01-04 08:23] LABS: BUN/Creatinine Ratio 18.3 (10.0-20.0)
[2025-01-04 08:32] LABS: Blood Urea Nitrogen 36 mg/dL (9-23); Glucose 131 mg/dL (74-106)
[2025-01-04 08:43] LABS: Total Cells Counted 100.0 (100)
--- NOTE | 2025-01-04 09:39 | DVH ---
PROCEDURE: MRI lumbar spine without contrast. INDICATION: Lower back pain COMPARISON: CT LS SPINE WO CONTRAST on DOS: 01/03/25 TECHNIQUE: MRI lumbar spine without intravenous contrast utilizing multiplanar, multisequence techni que. FINDINGS: There straightening of the lumbar lordosis. No abnormal alignment. There is T1 hypointense, T2 hyper intense signal abnormality in the L2 and L3 vertebral bodies and there is irregularity of the inferio r L2 endplate and superior L3 endplate. The bone marrow signal is otherwise unremarkable. There is severe intervertebral disc space narrowing at L2-L3 and L3-L4 with intradiscal edema. There is inter vertebral disc desiccation at L4-L5. The conus medullaris is normal in signal characteristics and ter minates at the T12-L1 level. Paraspinal muscles are unremarkable. There is a ventral epidural fluid collection measuring 6 mm in maximum thickness beginning at the posterior superior L2 endplate to the lower L4 endplate. At the T12-L1 level, there is no evidence of central spinal canal or neuroforaminal stenosis. At the L1-L2 level, there is no evidence of central spinal canal or neuroforaminal stenosis. At the L2-L3 level, there is posterior disc protrusion, ventral epidural fluid, ligamentum flavum and facet hypertrophy. There is intradiscal edema. There is moderate spinal stenosis. There is moderate bilateral neural foraminal stenosis. Inflammatory changes described above. At the L3-L4 level, there is broad-based posterior disc bulge, ligamentum flavum thickening, facet hy pertrophy, epidural fluid collection contributing to moderate canal stenosis. There is intradiscal ed krista. There is mild right and moderate left neural foraminal stenosis. Impingement of the exiting lef t L3 nerve root. Inflammatory changes described above. At the L4-L5 level, there is a broad-based posterior disc bulge and facet hypertrophy. There is no s ignificant spinal stenosis. Mild bilateral neural foraminal stenosis. At the L5-S1 level, there is no evidence of central spinal canal stenosis. Moderate left and mild rig ht neural foraminal stenosis. Other: None. IMPRESSION: 1. Severe disc degeneration at L2-L3 with cortical irregularity in the apposing endplates and abnorma l marrow signal in the L2 and L3 vertebral bodies highly suspicious for discitis osteomyelitis. There is also discitis suspected at L3-LThere is a ventral epidural fluid collection extending from the L 2 to the L4 vertebral bodies concerning for epidural abscess. 2. Additional multilevel lumbar spondylosis as described at each level above.
[2025-01-04] MEDS: EMPAGLIFLOZIN 10 MG TAB PO SCH (10:07)
[2025-01-04] MEDS: GABAPENTIN 300 MG CAP PO SCH (10:07)
[2025-01-04] MEDS: HYDROcodone-ACET 5/325MG TAB PO PRN (10:07)
[2025-01-04] MEDS: FUROSEMIDE 40 MG TAB PO SCH (10:08)
[2025-01-04] MEDS ORDERED: VANCOMYCIN PER PHARMACY 0 MG IV SCH ×2 (11:45→12:30)
--- NOTE | 2025-01-04 14:32 | DVHPN2 ---
Subjective Patient is seen at bedside today, pain continuing. Reviewed: Care Plan Changes from previous H/P or p: No Changes General: Per HPI Objective Vitals Vital Signs Date Time Temp Pulse Resp B/P (MAP) Pulse Ox O2 Delivery O2 Flow Rate FiO2 01/04/25 13:07 97.9 84 16 121/72 (88) 98 97.9 01/04/25 08:00 Room Air* 0 21 Intake/Output Intake and Output 01/04/25 07:00 Intake Total 540 ml Output Total 350 ml Balance 190 ml Intake Oral 240 ml IV Total 300 ml Output Urine Total 350 ml Exam GEN: Healthy appearing, well-developed, NAD. HEENT: NC/AT; MMM. CV: RRR, no m/r/g. LUNGS: CTAB, no w/r/c. ABD: Soft, NT/ND, NBS, no masses or organomegaly. EXT: skin Warm, well perfused. no rashes. No clubbing, cyanosis, or edema. NEURO: Ambulating with no limitations. No focal deficits. Patient has spinal tenderness L4-L5 mild tenderness bilaterally Medications Current Medications Medications Dose Ordered Sig/Elham Route Start Time Stop Time Status Last Admin Dose Admin Cefepime HCl 50 ml @ 12.5 mls/hr Q12HR IV 01/03/25 22:00 01/04/25 10:07 12.5 MLS/HR Furosemide 40 mg DAILY PO 01/04/25 10:00 01/04/25 10:08 40 MG Empaglifozin 10 mg DAILY PO 01/04/25 10:00 01/04/25 10:07 10 MG Metoprolol Tartrate 50 mg BID PO 01/03/25 22:00 01/04/25 10:08 50 MG Albuterol 2.5 mg Q6HPRN PRN NEB 01/03/25 18:00 Diagnostic Test (Pha) 1 strip ACHS 01/03/25 22:00 01/04/25 11:43 1 STRIP Insulin Human Regular ACHS SC 01/03/25 22:00 01/04/25 11:50 3 UNITS Dextrose 50 ml UD PRN IV 01/03/25 18:00 Acetaminophen/ Hydrocodone Bitart 1 tab Q4HP PRN PO 01/03/25 18:00 01/04/25 10:07 1 TAB Ondansetron HCl 4 mg Q4HP PRN IV 01/03/25 18:00 Acetaminophen 650 mg Q6HP PRN PO 01/03/25 18:00 Morphine Sulfate 2 mg Q4HPRN PRN IV 01/03/25 18:00 Gabapentin 600 mg HS PO 01/03/25 22:00 01/03/25 22:17 600 MG Gabapentin 300 mg DAILY PO 01/04/25 10:00 01/04/25 10:07 300 MG Aspirin 81 mg HS PO 01/03/25 22:00 01/03/25 23:11 81 MG Mirtazapine 30 mg HS PO 01/03/25 22:00 01/03/25 22:20 30 MG Vancomycin HCl 0 ml @ 0 mls/hr UD IV 01/04/25 12:30 UNV Docusate Sodium 100 mg BID PO 01/04/25 22:00 Lactulose 30 ml DAILY PO 01/04/25 20:00 Baclofen 10 mg BID PO 01/04/25 22:00 Hydrocortisone 1 applic BID TOP 01/04/25 22:00 Laboratory Results Laboratory Tests 01/04/25 05:43 Chemistry Test 01/03/25 15:56 01/04/25 05:43 Calcium Level 11.4 mg/dL (8.7-10.4) H 10.4 mg/dL (8.7-10.4) Labs and/or images reviewed: Labs reviewed by me, Image(s) reviewed by me Assessment/Plan Assessment/Plan 64-year-old male past medical history of PID diabetic neuropathy, chronic back. Patient presented with chief complaint of lower back pain radiating down to left leg. The pain has been worse for the last 1 month and now started radiating to left leg with the bed affecting his mobility. Patient denies saddle anesthesia, urinary incontinence, bowel incontinence, fever chills, shortness of breath, chest pain, abdominal pain, nausea and vomiting, headache or other complaints. Patient will be admitted for further assessments. 01/04: Patient has spinal epidural abscess, we need to transfer patient for high level of care for spinal Neurosurgery. We are calling spinal ortho to support the case. Until then we will continue vancomycin cefepime. 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 PT needs to work less patient have effort only maximum out of room and back. We will continue pain control. We will add baclofen 10 twice daily, holding off any steroids which could worsen condition/infection. Vertebral diskitis Vertebral osteomyelitis Spinal epidural abscess Chronic back pain with radiculopathy History of sciatica PID Diabetic neuropathy Plan: MRI concerning for vertebral osteomyelitis and spinal epidural abscess -continue IV antibiotics vancomycin/cefepime Spinal ortho consulted Patient will likely need transfer to high level of care for spinal surgery to deal with epidural abscess Continue prn pain control Baclofen 10 mg twice daily Patient on chronic pain control opiates, we will need bowel regimen we will start docusate 100 mg twice daily, lactulose 30 daily, Holding off steroids Aspirin 81, Jardiance 10, Lasix 40 daily, gabapentin 600 nightly, gabapentin 300 daily, lactulose 30 daily, metoprolol 50 b.i.d., mirtazapine 30 HS, Prn Zofran Diabetic diet Tele Full code Plan discussed with: Patient My Orders Orders - ELIAN LAUREN MD Procedure Category Date Status Time Vancomycin Per JAYDA 01/04/25 In Process Pharmacy Protoc 12:23 Vancomycin Per PHA 01/04/25 Pending Pharmacy 12:30 Docusate Sodium PHA 01/04/25 In Process Capsule (Colace 22:00 Lactulose Oral PHA 01/04/25 In Process 20:00 Baclofen Tablet PHA 01/04/25 In Process (Liorisal Tablet) 22:00 Hydrocortone 1% PHA 01/04/25 In Process Topical Cream 22:00 Date of Service: Jan 04, 2025 Billing Provider: ELIAN LAUREN MD Common Visit Codes: [id number] INP/OBS CARE(HIGH) ELIAN LAUREN MD Jan 04, 2025 14:32
[2025-01-04] MEDS: LACTULOSE 20Gm/30ML SOLN PO SCH (20:27)
[2025-01-04] MEDS: BACLOFEN 10 MG TAB PO SCH (22:34)
[2025-01-04] MEDS: DOCUSATE SOD 100 MG CAP PO SCH (22:35)
[2025-01-04] MEDS: MELATONIN 5 MG TAB PO ONE (22:35)
[2025-01-04] MEDS: HYDROCORTONE 1% TOPICAL CREAM 30 GM TUBE TOP SCH (23:04)
[2025-01-05] VITALS (9 sets, daily range): BP systolic 98–148; BP diastolic 61–81; PULSE 17–81; RESP 14–96; TEMP 97.7–98.4; O2SAT 91–98
[2025-01-05 08:31] LABS: Hematocrit 42.0 % (41.0-53.0); Hemoglobin 14.3 g/dL (13.5-17.5); Mean Corpuscular Hemoglobin 31.2 pg (28.0-32.0); Mean Corpuscular Volume 91.5 fL (80.0-100.0); Nucleated Red Blood Cells % 0.0 %
--- NOTE | 2025-01-05 12:01 | DVHINCON2 ---
Date of service: Jan 05, 2025 Reason for Consultation JENNA History of Present Illness 64 years old with past medical history of diabetes her nine years hypertension, congestive heart failure, peripheral vascular disease presented worsening lower back pain for the past one month patient is currently in a wheelchair the pain has gotten worse in the past three days denies any urinary complaints Nephrology consulted for Acute kidney injury Past Medical History As per HPI Allergies: Coded Allergies: NO KNOWN ALLERGIES (Unverified , 01/03/25) Home Meds Reported Medications Aspirin (Aspirin 81 Low Dose) 81 Mg Chw, 81 MG PO, TAB.CHEW 01/03/25 Melatonin (KP MELATONIN) 3 Mg Tab, 7.5 MG PO HS, TAB 01/03/25 Gabapentin (GABAPENTIN) 250 Mg/5 Ml Tisha, 300 MG PO DAILY, ML 01/03/25 Venlafaxine Hcl (Venlafaxine Hcl Er) 37.5 Mg Cap, 1 CAP PO DAILY, #30 CAP 2 Refills 01/03/25 Mirtazapine (REMERON) 30 Mg Tab, 1 TAB PO QPM, #30 TAB 1 Refill 01/03/25 Lisinopril (Lisinopril) 40 Mg Tab, 1 TAB PO DAILY, #30 TAB 5 Refills 01/03/25 Current Medications Current Medications Medications (Trade) Dose Ordered Sig/Elham Route PRN Reason Start Time Stop Time Status Last Admin Vancomycin HCl 0 ml @ 0 mls/hr UD IV 01/04/25 12:30 Docusate Sodium (Colace Capsule) 100 mg BID PO 01/04/25 22:00 01/05/25 09:29 Lactulose 30 ml DAILY PO 01/04/25 20:00 01/04/25 20:27 Baclofen (Liorisal Tablet) 10 mg BID PO 01/04/25 22:00 01/05/25 09:31 Hydrocortisone (Hydrocortisone 1% Cream) 1 applic BID TOP 01/04/25 22:00 01/05/25 09:33 Social History Positive for smoking, 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 six years ago denies drugs Review of Systems As documented in HPI H&P Exam Vital Signs/I&O Vital Sign Date Time Temp Pulse Resp B/P (MAP) Pulse Ox O2 Delivery O2 Flow Rate FiO2 01/05/25 09:31 81 124/74 01/05/25 09:01 98.4 14 98 98.4 01/05/25 07:01 Room Air 01/05/25 07:01 0 21 Intake and Output 01/04/25 01/05/25 19:00 07:00 Intake Total 2850 ml 800 ml Output Total 400 ml Balance 2850 ml 400 ml Intake Oral 2800 ml 800 ml IV Total 50 ml Output Urine Total 400 ml # Voids 4 # Bowel Movements 1 Physical Exam General-not in any distress HEENT-normocephalic, no icterus, no pallor, neck supple Respiratory-fair air entry bilateral, no rhonchi, no wheeze [id number] heard, no murmurs appreciated Abdominal-soft, nontender, nondistended Musculoskeletal-no pedal edema, no calf tenderness,, positive back point tenderness Genitourinary-deferred Neuro-awake alert oriented x3, Psychiatric-not agitated, cooperative, Labs/Diagnostic Data Labs/Diagnostic Data Laboratory Tests Test 01/05/25 06:53 01/05/25 05:45 01/04/25 22:39 01/04/25 16:28 Range/Units White Blood Count 11.3 H 4.4-10.8 10^3/uL Red Blood Count 4.58 4.5-5.90 10^6/uL Hemoglobin 14.3 13.5-17.5 g/dL Hematocrit 42.0 41.0-53.0 % Mean Corpuscular Volume 91.5 80.0-100.0 fL Mean Corpuscular Hemoglobin 31.2 28.0-32.0 pg Mean Corpuscular Hemoglobin Concent 34.1 32.0-36.0 g/dL Red Cell Distribution Width 14.7 H 11.8-14.3 % Platelet Count 318 140-450 10^3/uL Mean Platelet Volume 8.0 6.9-10.8 fL Neutrophils (%) (Auto) 60.2 37.0-80.0 % Lymphocytes (%) (Auto) 24.5 10.0-50.0 % Monocytes (%) (Auto) 11.2 0.0-12.0 % Eosinophils (%) (Auto) 3.6 0.0-7.0 % Basophils (%) (Auto) 0.5 0.0-2.0 % Neutrophils # (Auto) 6.8 1.6-8.6 10 ^3/uL Lymphocytes # (Auto) 2.8 0.4-5.4 10 ^3/uL Monocytes # (Auto) 1.3 0-1.3 10 ^3/uL Eosinophils # (Auto) 0.4 0-0.8 10 ^3/uL Basophils # (Auto) 0.1 0-0.2 10 ^3/uL Nucleated Red Blood Cells 0.0 % Creatinine 1.93 H 0.700-1.30 mg/dL Glomerular Filtration Rate Calc 39 >90 mL/min Random Vancomycin Level 4.5 L 5-10 ug/mL POC Glucose 140 H 238 H 175 H 70-106 mg/dl Test 01/04/25 11:21 01/04/25 06:25 01/04/25 05:43 01/03/25 21:55 Range/Units POC Glucose 186 H 126 H 192 H 70-106 mg/dl White Blood Count 12.1 H 4.4-10.8 10^3/uL Red Blood Count 4.75 4.5-5.90 10^6/uL Hemoglobin 14.8 13.5-17.5 g/dL Hematocrit 43.6 41.0-53.0 % Mean Corpuscular Volume 91.7 80.0-100.0 fL Mean Corpuscular Hemoglobin 31.1 28.0-32.0 pg Mean Corpuscular Hemoglobin Concent 33.9 32.0-36.0 g/dL Red Cell Distribution Width 14.6 H 11.8-14.3 % Platelet Count 333 140-450 10^3/uL Mean Platelet Volume 8.0 6.9-10.8 fL Neutrophils (%) (Auto) 37.0-80.0 % Lymphocytes (%) (Auto) 10.0-50.0 % Monocytes (%) (Auto) 0.0-12.0 % Basophils (%) (Auto) 0.0-2.0 % Neutrophils # (Auto) 1.6-8.6 10 ^3/uL Lymphocytes # (Auto) 0.4-5.4 10 ^3/uL Monocytes # (Auto) 0-1.3 10 ^3/uL Differential Total Cells Counted 100.0 100 Neutrophils % (Manual) 60 37.0-80.0 Band Neutrophils % (Manual) 2 Lymphocytes % (Manual) 32 10.0-50.0 Monocytes % (Manual) 3 0-12 Eosinophils % (Manual) 1 0-7 Basophils % (Manual) 0 0.0-2.0 Metamyelocytes % (manual) 0 Myelocytes % (Manual) 2 Promyelocytes % (Manual) 0 Blast Cells % (Manual) 0 Reactive Lymphocytes 0 Platelet Estimate Adequate Sodium Level 141 136-145 mmol/L Potassium Level 4.0 3.5-5.1 mmol/L Chloride Level 105 98-107 mmol/L Carbon Dioxide Level 26 20-31 mmol/L Anion Gap 10 5-15 Blood Urea Nitrogen 36 H 9-23 mg/dL Creatinine 1.97 H 0.700-1.30 mg/dL Glomerular Filtration Rate Calc 38 >90 mL/min BUN/Creatinine Ratio 18.3 10.0-20.0 Serum Glucose 131 H 74-106 mg/dL Calcium Level 10.4 8.7-10.4 mg/dL Test 01/03/25 17:17 01/03/25 15:56 Range/Units POC Glucose 163 H 70-106 mg/dl White Blood Count 10.8 4.4-10.8 10^3/uL Red Blood Count 4.66 4.5-5.90 10^6/uL Hemoglobin 14.7 13.5-17.5 g/dL Hematocrit 42.4 41.0-53.0 % Mean Corpuscular Volume 91.1 80.0-100.0 fL Mean Corpuscular Hemoglobin 31.6 28.0-32.0 pg Mean Corpuscular Hemoglobin Concent 34.7 32.0-36.0 g/dL Red Cell Distribution Width 14.2 11.8-14.3 % Platelet Count 344 140-450 10^3/uL Mean Platelet Volume 7.7 6.9-10.8 fL Neutrophils (%) (Auto) 37.0-80.0 % Lymphocytes (%) (Auto) 10.0-50.0 % Monocytes (%) (Auto) 0.0-12.0 % Basophils (%) (Auto) 0.0-2.0 % Neutrophils # (Auto) 1.6-8.6 10 ^3/uL Lymphocytes # (Auto) 0.4-5.4 10 ^3/uL Monocytes # (Auto) 0-1.3 10 ^3/uL Differential Total Cells Counted 100.0 100 Neutrophils % (Manual) 65 37.0-80.0 Band Neutrophils % (Manual) 0 Lymphocytes % (Manual) 22 10.0-50.0 Monocytes % (Manual) 9 0-12 Eosinophils % (Manual) 2 0-7 Basophils % (Manual) 0 0.0-2.0 Metamyelocytes % (manual) 0 Myelocytes % (Manual) 0 Promyelocytes % (Manual) 0 Blast Cells % (Manual) 2 Reactive Lymphocytes 0 Smudge Cells 1 /100 WBC Platelet Estimate Adequate Sodium Level 137 136-145 mmol/L Potassium Level 4.0 3.5-5.1 mmol/L Chloride Level 100 98-107 mmol/L Carbon Dioxide Level 28 20-31 mmol/L Anion Gap 9 5-15 Blood Urea Nitrogen 38 H 9-23 mg/dL Creatinine 2.05 H 0.700-1.30 mg/dL Glomerular Filtration Rate Calc 36 >90 mL/min BUN/Creatinine Ratio 18.5 10.0-20.0 Serum Glucose 184 H 74-106 mg/dL Lactic Acid Level 1.5 0.4-2.0 mmol/L Calcium Level 11.4 H 8.7-10.4 mg/dL C-Reactive Protein High Sensitivity 0.50 <1.0 mg/dL Assessment Acute kidney injury on Chronic kidney disease IIIb hemodynamic mediated etiology Underlying diabetic nephropathy Hypertension Diabetes type 2 Vertebral diskitis /osteomyelitis Possible spinal abscess Congestive heart failure Recommendations Monitor renal function closely Kidney ultrasound Chest x-ray Urine workup as ordered Currently on broad-spectrum IV antibiotics--monitor for worsening of Acute kidney injury on vancomycin We will follow closely Spinal surgery has been consulted He was also in recently in emergency room in November Reviewed vital signs, lab work, imaging studies, medications, microbiology, other physician recommendations Total time spent 80 minutes More than 50% of the time spent providing direct [id number] care . Thank you for allowing me to participate in the care of your patient. Plan discussed with: Patient MARISEL BANSAL MD Jan 05, 2025 12:01
--- NOTE | 2025-01-05 13:36 | DVH ---
CLINICAL HISTORY: aram TECHNIQUE: Complete ultrasound exam of the kidneys and bladder was performed. COMPARISON: None FINDINGS: The right kidney has normal echogenicity and measures 9.3 cm. There is no focal parenchymal abnormali ty or evidence for stone. There is no hydronephrosis. The left kidney has normal echogenicity and measures 9.4 cm. There is no focal parenchymal abnormali ty or evidence for stone. There is no hydronephrosis. The bladder is grossly unremarkable. IMPRESSION: NO SIGNIFICANT SONOGRAPHIC ABNORMALITY OF THE KIDNEYS.
--- NOTE | 2025-01-05 16:44 | DVHPN2 ---
Subjective Patient is seen at bedside today, pain continuing. Reviewed: Care Plan Changes from previous H/P or p: No Changes General: Per HPI Objective Vitals Vital Signs Date Time Temp Pulse Resp B/P (MAP) Pulse Ox O2 Delivery O2 Flow Rate FiO2 01/05/25 13:00 97.7 70 18 127/74 (91) 97 97.7 01/05/25 08:30 Room Air* 0 21 Intake/Output Intake and Output 01/05/25 07:00 Intake Total 3650 ml Output Total 400 ml Balance 3250 ml Intake Oral 3600 ml IV Total 50 ml Output Urine Total 400 ml # Voids 4 # Bowel Movements 1 Exam GEN: Healthy appearing, well-developed, NAD. HEENT: NC/AT; MMM. CV: RRR, no m/r/g. LUNGS: CTAB, no w/r/c. ABD: Soft, NT/ND, NBS, no masses or organomegaly. EXT: skin Warm, well perfused. no rashes. No clubbing, cyanosis, or edema. NEURO: Ambulating with no limitations. No focal deficits. Patient has spinal tenderness L4-L5 mild tenderness bilaterally Medications Current Medications Medications Dose Ordered Sig/Elham Route Start Time Stop Time Status Last Admin Dose Admin Cefepime HCl 50 ml @ 12.5 mls/hr Q12HR IV 01/03/25 22:00 01/05/25 09:29 12.5 MLS/HR Empaglifozin 10 mg DAILY PO 01/04/25 10:00 01/05/25 09:29 10 MG Metoprolol Tartrate 50 mg BID PO 01/03/25 22:00 01/05/25 09:31 50 MG Albuterol 2.5 mg Q6HPRN PRN NEB 01/03/25 18:00 Diagnostic Test (Pha) 1 strip ACHS 01/03/25 22:00 01/05/25 11:30 1 STRIP Insulin Human Regular ACHS SC 01/03/25 22:00 01/05/25 11:30 4 UNITS Dextrose 50 ml UD PRN IV 01/03/25 18:00 Acetaminophen/ Hydrocodone Bitart 1 tab Q4HP PRN PO 01/03/25 18:00 01/05/25 09:38 1 TAB Ondansetron HCl 4 mg Q4HP PRN IV 01/03/25 18:00 Acetaminophen 650 mg Q6HP PRN PO 01/03/25 18:00 Morphine Sulfate 2 mg Q4HPRN PRN IV 01/03/25 18:00 Gabapentin 600 mg HS PO 01/03/25 22:00 01/04/25 22:34 600 MG Gabapentin 300 mg DAILY PO 01/04/25 10:00 01/05/25 09:30 300 MG Aspirin 81 mg HS PO 01/03/25 22:00 01/04/25 22:35 81 MG Mirtazapine 30 mg HS PO 01/03/25 22:00 01/04/25 22:34 30 MG Vancomycin HCl 0 ml @ 0 mls/hr UD IV 01/04/25 12:30 Docusate Sodium 100 mg BID PO 01/04/25 22:00 01/05/25 09:29 100 MG Lactulose 30 ml DAILY PO 01/04/25 20:00 01/04/25 20:27 30 ML Baclofen 10 mg BID PO 01/04/25 22:00 01/05/25 09:31 10 MG Hydrocortisone 1 applic BID TOP 01/04/25 22:00 01/05/25 09:33 1 APPLIC Laboratory Results Laboratory Tests 01/04/25 05:43 01/05/25 06:53 Microbiology Microbiology Date/Time Source Procedure Growth Status 01/03/25 15:56 Blood Blood Culture - Preliminary NO GROWTH AFTER 48 HOURS OF INCUBATION. Resulted Labs and/or images reviewed: Labs reviewed by me, Image(s) reviewed by me Assessment/Plan Assessment/Plan 64-year-old male past medical history of PID diabetic neuropathy, chronic back. Patient presented with chief complaint of lower back pain radiating down to left leg. The pain has been worse for the last 1 month and now started radiating to left leg with the bed affecting his mobility. Patient denies saddle anesthesia, urinary incontinence, bowel incontinence, fever chills, shortness of breath, chest pain, abdominal pain, nausea and vomiting, headache or other complaints. Patient will be admitted for further assessments. 01/04: Patient has spinal epidural abscess, we need to transfer patient for high level of care for spinal Neurosurgery. We are calling spinal ortho to support the case. Until then we will continue vancomycin cefepime. 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 PT needs to work less patient have effort only maximum out of room and back. We will continue pain control. We will add baclofen 10 twice daily, holding off any steroids which could worsen condition/infection. 01/05: Patient doing well no symptoms or red flags of spinal compression, patient walking has feeling in lower legs bilaterally present. Patient worked with PT and doing better today yesterday he will be PT and has significant pain, today not so much. Early communication with spinal ortho suggestive that we can keep patient and Tuesday we can review with spinal ortho. We will also start consult with ID for likely osteomyelitis of the lumbar spine. Continue IV antibiotics. Diagnosis: Vertebral discitis Vertebral osteomyelitis Spinal epidural abscess Chronic back pain with radiculopathy History of sciatica PID Diabetic neuropathy Plan: MRI concerning for vertebral osteomyelitis and spinal epidural abscess -continue IV antibiotics vancomycin/cefepime Spinal ortho consulted Patient will likely need transfer to high level of care for spinal surgery to deal with epidural abscess Continue prn pain control Baclofen 10 mg twice daily Patient on chronic pain control opiates, we will need bowel regimen we will start docusate 100 mg twice daily, lactulose 30 daily, Holding off steroids Aspirin 81, Jardiance 10, Lasix 40 daily, gabapentin 600 nightly, gabapentin 300 daily, lactulose 30 daily, metoprolol 50 b.i.d., mirtazapine 30 HS, Prn Zofran Diabetic diet Tele Full code Plan discussed with: Patient My Orders Orders - ELIAN LAUREN MD Procedure Category Date Status Time Complete Blood Count LAB 01/06/25 Verified 04:00 Creatinine LAB 01/06/25 Verified 04:00 Vancomycin,Random LAB 01/06/25 Verified 04:00 Vancomycin Per JAYDA 01/05/25 In Process [facility]acy [facility] 11:23 Date of Service: Jan 05, 2025 Billing Provider: ELIAN LAUREN MD Common Visit Codes: [id number] INP/OBS CARE(H[facility]) ELIAN LAUREN MD Jan 05, 2025 16:44
[2025-01-05] MEDS: VANCOMYCIN 1GM/250ML KIT 250 ML IV ONE (18:16)
[2025-01-05] MEDS: MELATONIN 5 MG TAB PO SCH (21:13)
[2025-01-06] VITALS (10 sets, daily range): BP systolic 107–145; BP diastolic 48–89; PULSE 72–87; RESP 17–19; TEMP 97.6–98.7; O2SAT 94–100
[2025-01-06 02:27] LABS: Urine Protein, UAD Negative (Negative)
[2025-01-06 02:28] LABS: Protein, Urine < 6.0 mg/dL (1-14)
[2025-01-06 08:06] LABS: Hematocrit 44.0 % (41.0-53.0); Hemoglobin 14.7 g/dL (13.5-17.5); Mean Corpuscular Hemoglobin 30.7 pg (28.0-32.0); Mean Corpuscular Volume 91.9 fL (80.0-100.0); Nucleated Red Blood Cells % 0.0 %
[2025-01-06 08:15] LABS: Chloride 106 mmol/L (98-107); Potassium 4.1 mmol/L (3.5-5.1); Sodium 141 mmol/L (136-145)
[2025-01-06 08:16] LABS: Anion Gap 9 (5-15); Calcium 9.5 mg/dL (8.7-10.4); Carbon Dioxide 26 mmol/L (20-31)
[2025-01-06 08:21] LABS: BUN/Creatinine Ratio 19.5 (10.0-20.0)
[2025-01-06 08:23] LABS: Blood Urea Nitrogen 31 mg/dL (9-23); Glucose 155 mg/dL (74-106)
--- NOTE | 2025-01-06 12:13 | DVHPN2 ---
Progress Note Date Seen: Jan 06, 2025 Medical Necessity Reason Pt with a Central, PICC or Fol: No Subjective Patient reports: No new complaints, Other (backpain) Objective vital signs Vital Sign Date Time Temp Pulse Resp B/P (MAP) Pulse Ox O2 Delivery O2 Flow Rate FiO2 01/06/25 11:13 89 128/68 01/06/25 09:00 98.4 19 98 98.4 01/06/25 06:46 Room Air* 0 21 Total Intake and Output 01/05/25 01/05/25 01/06/25 15:00 23:00 07:00 Intake Total 1400 ml 1670 ml 450 ml Balance 1400 ml 1670 ml 450 ml medications Current Medications Medications Dose Ordered Sig/Elham Route Start Time Stop Time Status Last Admin Dose Admin Cefepime HCl 50 ml @ 12.5 mls/hr Q12HR IV 01/03/25 22:00 01/06/25 11:10 12.5 MLS/HR Empaglifozin 10 mg DAILY PO 01/04/25 10:00 01/06/25 11:12 10 MG Metoprolol Tartrate 50 mg BID PO 01/03/25 22:00 01/06/25 11:13 50 MG Albuterol 2.5 mg Q6HPRN PRN NEB 01/03/25 18:00 Diagnostic Test (Pha) 1 strip ACHS 01/03/25 22:00 01/06/25 11:13 1 STRIP Insulin Human Regular ACHS SC 01/03/25 22:00 01/06/25 11:37 4 UNITS Dextrose 50 ml UD PRN IV 01/03/25 18:00 Acetaminophen/ Hydrocodone Bitart 1 tab Q4HP PRN PO 01/03/25 18:00 01/05/25 09:38 1 TAB Ondansetron HCl 4 mg Q4HP PRN IV 01/03/25 18:00 Acetaminophen 650 mg Q6HP PRN PO 01/03/25 18:00 Morphine Sulfate 2 mg Q4HPRN PRN IV 01/03/25 18:00 Gabapentin 600 mg HS PO 01/03/25 22:00 01/05/25 21:15 600 MG Gabapentin 300 mg DAILY PO 01/04/25 10:00 01/06/25 11:11 300 MG Aspirin 81 mg HS PO 01/03/25 22:00 01/05/25 21:14 81 MG Mirtazapine 30 mg HS PO 01/03/25 22:00 01/05/25 21:15 30 MG Vancomycin HCl 0 ml @ 0 mls/hr UD IV 01/04/25 12:30 Docusate Sodium 100 mg BID PO 01/04/25 22:00 01/06/25 11:11 100 MG Lactulose 30 ml DAILY PO 01/04/25 20:00 01/06/25 11:11 30 ML Baclofen 10 mg BID PO 01/04/25 22:00 01/06/25 11:11 10 MG Hydrocortisone 1 applic BID TOP 01/04/25 22:00 01/06/25 11:13 1 APPLIC Melatonin 7.5 mg HS PO 01/05/25 22:00 01/05/25 21:13 7.5 MG Examination: GENERAL:Normal, ABDOMEN:Normal, MSK:Abnormal, SKIN:Normal, NEURO:Normal laboratory and microbiology Laboratory Tests 01/06/25 07:24 Test 01/06/25 07:24 Range/Units Serum Glucose 155 H 74-106 mg/dL Microbiology Date/Time Source Procedure Growth Status 01/03/25 15:56 Blood Blood Culture - Preliminary NO GROWTH AFTER 48 HOURS OF INCUBATION. Resulted Problem List/Assessment/Plan Problem List/Assessment/Plan Acute kidney injury on Chronic kidney disease IIIb hemodynamic mediated etiology Underlying diabetic nephropathy Hypertension Diabetes type 2 Vertebral diskitis /osteomyelitis Possible spinal abscess Congestive heart failure Recommendations Monitor renal function closely better today Kidney ultrasound wnl Currently on broad-spectrum IV antibiotics--monitor for worsening of Acute kidney injury on vancomycin We will follow closely Spinal surgery has been consulted He was also in recently in emergency room in November Plan discussed with: Patient MARISEL BANSAL MD Jan 06, 2025 12:13
--- NOTE | 2025-01-06 14:54 | DVHPN2 ---
Subjective Patient is seen at bedside today, pain continuing. Reviewed: Care Plan Changes from previous H/P or p: No Changes General: Per HPI Objective Vitals Vital Signs Date Time Temp Pulse Resp B/P (MAP) Pulse Ox O2 Delivery O2 Flow Rate FiO2 01/06/25 11:13 89 128/68 01/06/25 09:00 98.4 19 98 98.4 01/06/25 08:00 Room Air* 0 21 Intake/Output Intake and Output 01/06/25 07:00 Intake Total 3520 ml Balance 3520 ml Intake Oral 3220 ml IV Total 300 ml # Voids 5 # Bowel Movements 1 Exam GEN: Healthy appearing, well-developed, NAD. HEENT: NC/AT; MMM. CV: RRR, no m/r/g. LUNGS: CTAB, no w/r/c. ABD: Soft, NT/ND, NBS, no masses or organomegaly. EXT: skin Warm, well perfused. no rashes. No clubbing, cyanosis, or edema. NEURO: Ambulating with no limitations. No focal deficits. Patient has spinal tenderness L4-L5 mild tenderness bilaterally Medications Current Medications Medications Dose Ordered Sig/Elham Route Start Time Stop Time Status Last Admin Dose Admin Cefepime HCl 50 ml @ 12.5 mls/hr Q12HR IV 01/03/25 22:00 01/06/25 11:10 12.5 MLS/HR Empaglifozin 10 mg DAILY PO 01/04/25 10:00 01/06/25 11:12 10 MG Metoprolol Tartrate 50 mg BID PO 01/03/25 22:00 01/06/25 11:13 50 MG Albuterol 2.5 mg Q6HPRN PRN NEB 01/03/25 18:00 Diagnostic Test (Pha) 1 strip ACHS 01/03/25 22:00 01/06/25 11:13 1 STRIP Insulin Human Regular ACHS SC 01/03/25 22:00 01/06/25 11:37 4 UNITS Dextrose 50 ml UD PRN IV 01/03/25 18:00 Acetaminophen/ Hydrocodone Bitart 1 tab Q4HP PRN PO 01/03/25 18:00 01/05/25 09:38 1 TAB Ondansetron HCl 4 mg Q4HP PRN IV 01/03/25 18:00 Acetaminophen 650 mg Q6HP PRN PO 01/03/25 18:00 Morphine Sulfate 2 mg Q4HPRN PRN IV 01/03/25 18:00 Gabapentin 600 mg HS PO 01/03/25 22:00 01/05/25 21:15 600 MG Gabapentin 300 mg DAILY PO 01/04/25 10:00 01/06/25 11:11 300 MG Aspirin 81 mg HS PO 01/03/25 22:00 01/05/25 21:14 81 MG Mirtazapine 30 mg HS PO 01/03/25 22:00 01/05/25 21:15 30 MG Vancomycin HCl 0 ml @ 0 mls/hr UD IV 01/04/25 12:30 Docusate Sodium 100 mg BID PO 01/04/25 22:00 01/06/25 11:11 100 MG Lactulose 30 ml DAILY PO 01/04/25 20:00 01/06/25 11:11 30 ML Baclofen 10 mg BID PO 01/04/25 22:00 01/06/25 11:11 10 MG Hydrocortisone 1 applic BID TOP 01/04/25 22:00 01/06/25 11:13 1 APPLIC Melatonin 7.5 mg HS PO 01/05/25 22:00 01/05/25 21:13 7.5 MG Laboratory Results Laboratory Tests 01/06/25 07:24 Chemistry Test 01/06/25 07:24 Calcium Level 9.5 mg/dL (8.7-10.4) Urinalysis Test 01/06/25 01:45 Urine Color Colorless (Yellow) Urine Clarity Clear (Clear) Urine pH 6.0 (5.0-9.0) Urine Specific Saffell 1.013 (1.001-1.035) Urine Protein Negative (Negative) Urine Ketones Negative (Negative) Urine Blood Negative /uL (Negative) Urine Nitrite Negative (Negative) Urine Bilirubin Negative (Negative) Urine Urobilinogen Normal mg/dL (Negative) Urine Leukocyte Esterase Negative /uL (Negative) Urine RBC <1 /hpf (0 - 3) Urine Microscopic WBC < 2 /HPF (0-3) Urine Squamous Epithelial Cells Few /hpf (<5) Urine Bacteria None seen /hpf (None Seen) Urine Creatinine 32.99 mg/dL (30.0-125.0) Urine Protein/Creatinine Ratio 0.18 Urine Glucose 4+ mg/dL (Normal) H Urine Total Protein < 6.0 mg/dL (1-14) Microbiology Microbiology Date/Time Source Procedure Growth Status 01/03/25 15:56 Blood Blood Culture - Preliminary NO GROWTH AFTER 48 HOURS OF INCUBATION. Resulted Labs and/or images reviewed: Labs reviewed by me, Image(s) reviewed by me Assessment/Plan Assessment/Plan 64-year-old male past medical history of PID diabetic neuropathy, chronic back. Patient presented with chief complaint of lower back pain radiating down to left leg. The pain has been worse for the last 1 month and now started radiating to left leg with the bed affecting his mobility. Patient denies saddle anesthesia, urinary incontinence, bowel incontinence, fever chills, shortness of breath, chest pain, abdominal pain, nausea and vomiting, headache or other complaints. Patient will be admitted for further assessments. 01/04: Patient has spinal epidural abscess, we need to transfer patient for high level of care for spinal Neurosurgery. We are calling spinal ortho to support the case. Until then we will continue vancomycin cefepime. 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 PT needs to work less patient have effort only maximum out of room and back. We will continue pain control. We will add baclofen 10 twice daily, holding off any steroids which could worsen condition/infection. 01/05: Patient doing well no symptoms or red flags of spinal compression, patient walking has feeling in lower legs bilaterally present. Patient worked with PT and doing better today yesterday he will be PT and has significant pain, today not so much. Early communication with spinal ortho suggestive that we can keep patient and Tuesday we can review with spinal ortho. We will also start consult with ID for likely osteomyelitis of the lumbar spine. Continue IV antibiotics. 01/06: Patient is seen today, doing well. Worked with PT even better today. Using wheelchair otherwise. No spinal tenderness, paraspinal tenderness present. Lower extremities still function intact sensation and motor intact no bowel bladder loss. Tomorrow plan for spinal ortho and ID to evaluate patient, with outpatient plan. Patient will likely need long-term antibiotics for osteo myelitis in vertebrae. Diagnosis: Vertebral discitis Vertebral osteomyelitis Spinal epidural abscess Chronic back pain with radiculopathy History of sciatica PID Diabetic neuropathy Plan: MRI concerning for vertebral osteomyelitis and spinal epidural abscess -continue IV antibiotics vancomycin/cefepime Spinal ortho consulted Patient will likely need transfer to high level of care for spinal surgery to deal with epidural abscess Continue prn pain control Baclofen 10 mg twice daily Patient on chronic pain control opiates, we will need bowel regimen we will start docusate 100 mg twice daily, lactulose 30 daily, Holding off steroids Aspirin 81, Jardiance 10, Lasix 40 daily, gabapentin 600 nightly, gabapentin 300 daily, lactulose 30 daily, metoprolol 50 b.i.d., mirtazapine 30 HS, Prn Zofran Diabetic diet Tele Full code Plan discussed with: Patient My Orders Orders - ELIAN LAUREN MD Procedure Category Date Status Time * Infectious [place]- Dr. GARDNER 01/06/25 Transmitted [place] 10:02 Date of Service: Jan 06, 2025 Billing Provider: ELIAN LAUREN MD Common Visit Codes: [id number] INP/OBS CARE([facility]) ELIAN LAUREN MD Jan 06, 2025 14:54
[2025-01-06] MEDS: VANCOMYCIN 1.5GM/250ML 250 ML IV ONE (17:56)
[2025-01-06] MEDS: ALBUTEROL SULF 2.5 MG/0.5ML(0.5%) NEB SOLN NEB PRN (22:05)
[2025-01-07] VITALS (9 sets, daily range): BP systolic 114–143; BP diastolic 64–86; PULSE 66–84; RESP 16–20; TEMP 97.9–98.5; O2SAT 93–100
[2025-01-07 07:59] LABS: Hematocrit 41.9 % (41.0-53.0); Hemoglobin 14.2 g/dL (13.5-17.5); Mean Corpuscular Hemoglobin 31.2 pg (28.0-32.0); Mean Corpuscular Volume 92.3 fL (80.0-100.0); Nucleated Red Blood Cells % 0.0 %
--- NOTE | 2025-01-07 11:31 | DVHPN2 ---
Subjective Patient is seen at bedside today, pain continuing. Reviewed: Care Plan Changes from previous H/P or p: No Changes General: Per HPI Objective Vitals Vital Signs Date Time Temp Pulse Resp B/P (MAP) Pulse Ox O2 Delivery O2 Flow Rate FiO2 01/07/25 09:17 78 137/86 01/07/25 09:00 98.0 17 95 98.0 01/06/25 22:05 Room Air* 0 21 Intake/Output Intake and Output 01/07/25 06:59 Intake Total 1950 ml Output Total 825 ml Balance 1125 ml Intake Oral 1600 ml IV Total 350 ml Output Urine Total 825 ml # Voids 3 # Bowel Movements 1 Exam GEN: Healthy appearing, well-developed, NAD. HEENT: NC/AT; MMM. CV: RRR, no m/r/g. LUNGS: CTAB, no w/r/c. ABD: Soft, NT/ND, NBS, no masses or organomegaly. EXT: skin Warm, well perfused. no rashes. No clubbing, cyanosis, or edema. NEURO: Ambulating with no limitations. No focal deficits. Patient has spinal tenderness L4-L5 mild tenderness bilaterally Medications Current Medications Medications Dose Ordered Sig/Elham Route Start Time Stop Time Status Last Admin Dose Admin Cefepime HCl 50 ml @ 12.5 mls/hr Q12HR IV 01/03/25 22:00 01/07/25 09:15 12.5 MLS/HR Empaglifozin 10 mg DAILY PO 01/04/25 10:00 01/07/25 09:16 10 MG Metoprolol Tartrate 50 mg BID PO 01/03/25 22:00 01/07/25 09:17 50 MG Albuterol 2.5 mg Q6HPRN PRN NEB 01/03/25 18:00 01/06/25 22:05 2.5 MG Diagnostic Test (Pha) 1 strip ACHS 01/03/25 22:00 01/07/25 06:10 1 STRIP Insulin Human Regular ACHS SC 01/03/25 22:00 01/06/25 22:04 4 UNITS Dextrose 50 ml UD PRN IV 01/03/25 18:00 Acetaminophen/ Hydrocodone Bitart 1 tab Q4HP PRN PO 01/03/25 18:00 01/07/25 04:23 1 TAB Ondansetron HCl 4 mg Q4HP PRN IV 01/03/25 18:00 Acetaminophen 650 mg Q6HP PRN PO 01/03/25 18:00 Morphine Sulfate 2 mg Q4HPRN PRN IV 01/03/25 18:00 Gabapentin 600 mg HS PO 01/03/25 22:00 01/06/25 21:57 600 MG Gabapentin 300 mg DAILY PO 01/04/25 10:00 01/07/25 09:16 300 MG Aspirin 81 mg HS PO 01/03/25 22:00 01/06/25 21:57 81 MG Mirtazapine 30 mg HS PO 01/03/25 22:00 01/06/25 21:57 30 MG Vancomycin HCl 0 ml @ 0 mls/hr UD IV 01/04/25 12:30 Docusate Sodium 100 mg BID PO 01/04/25 22:00 01/07/25 09:16 100 MG Lactulose 30 ml DAILY PO 01/04/25 20:00 01/06/25 11:11 30 ML Baclofen 10 mg BID PO 01/04/25 22:00 01/07/25 09:16 10 MG Hydrocortisone 1 applic BID TOP 01/04/25 22:00 01/07/25 09:18 1 APPLIC Melatonin 7.5 mg HS PO 01/05/25 22:00 01/06/25 21:56 7.5 MG Venlafaxine HCl 37.5 mg BID PO 01/07/25 22:00 UNV Laboratory Results Laboratory Tests 01/06/25 07:24 01/07/25 06:42 Urinalysis Test 01/06/25 01:45 Urine Color Colorless (Yellow) Urine Clarity Clear (Clear) Urine pH 6.0 (5.0-9.0) Urine Specific [place] 1.013 (1.001-1.035) Urine Protein Negative (Negative) Urine Ketones Negative (Negative) Urine Blood Negative /uL (Negative) Urine Nitrite Negative (Negative) Urine Bilirubin Negative (Negative) Urine Urobilinogen Normal mg/dL (Negative) Urine Leukocyte Esterase Negative /uL (Negative) Urine RBC <1 /hpf (0 - 3) Urine Microscopic WBC < 2 /HPF (0-3) Urine Squamous Epithelial Cells Few /hpf (<5) Urine Bacteria None seen /hpf (None Seen) Urine Creatinine 32.99 mg/dL (30.0-125.0) Urine Protein/Creatinine Ratio 0.18 Urine Glucose 4+ mg/dL (Normal) H Urine Total Protein < 6.0 mg/dL (1-14) Microbiology Microbiology Date/Time Source Procedure Growth Status 01/03/25 15:56 Blood Blood Culture - Preliminary NO GROWTH AFTER 72 HOURS OF INCUBATION. Resulted Labs and/or images reviewed: Labs reviewed by me, Image(s) reviewed by me Assessment/Plan Assessment/Plan 64-year-old male past medical history of PID diabetic neuropathy, chronic back. Patient presented with chief complaint of lower back pain radiating down to left leg. The pain has been worse for the last 1 month and now started radiating to left leg with the bed affecting his mobility. Patient denies saddle anesthesia, urinary incontinence, bowel incontinence, fever chills, shortness of breath, chest pain, abdominal pain, nausea and vomiting, headache or other complaints. Patient will be admitted for further assessments. 01/04: Patient has spinal epidural abscess, we need to transfer patient for high level of care for spinal Neurosurgery. We are calling spinal ortho to support the case. Until then we will continue vancomycin cefepime. 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 PT needs to work less patient have effort only maximum out of room and back. We will continue pain control. We will add baclofen 10 twice daily, holding off any steroids which could worsen condition/infection. 01/05: Patient doing well no symptoms or red flags of spinal compression, patient walking has feeling in lower legs bilaterally present. Patient worked with PT and doing better today yesterday he will be PT and has significant pain, today not so much. Early communication with spinal ortho suggestive that we can keep patient and Tuesday we can review with spinal ortho. We will also start consult with ID for likely osteomyelitis of the lumbar spine. Continue IV antibiotics. 01/06: Patient is seen today, doing well. Worked with PT even better today. Using wheelchair otherwise. No spinal tenderness, paraspinal tenderness present. Lower extremities still function intact sensation and motor intact no bowel bladder loss. Tomorrow plan for spinal ortho and ID to evaluate patient, with outpatient plan. Patient will likely need long-term antibiotics for osteo myelitis in vertebrae. 01/07: Patient doing well, back pain tolerable, already on gabapentin no need to add Lyrica or Cymbalta. Patient takes Effexor, more reason to not add Cymbalta. We will continue to wait for eval by ID and spinal ortho. Continue IV antibiotics for diskitis vertebral osteomyelitis. Diagnosis: Vertebral discitis Vertebral osteomyelitis ?Spinal epidural abscess Chronic back pain with radiculopathy History of sciatica PID Diabetic neuropathy Plan: MRI concerning for vertebral osteomyelitis and spinal epidural abscess -continue IV antibiotics vancomycin/cefepime Spinal ortho consulted Patient will likely need transfer to high level of care for spinal surgery to deal with epidural abscess Continue prn pain control Baclofen 10 mg twice daily Patient on chronic pain control opiates, we will need bowel regimen we will start docusate 100 mg twice daily, lactulose 30 daily, Holding off steroids Aspirin 81, Jardiance 10, Lasix 40 daily, gabapentin 600 nightly, gabapentin 300 daily, lactulose 30 daily, metoprolol 50 b.i.d., mirtazapine 30 HS, Prn Zofran Diabetic diet Tele Full code Plan discussed with: Patient My Orders Orders - ELIAN LAUREN MD Procedure Category Date Status Time Vancomycin,Random LAB 01/07/25 In Process 04:00 Venlafaxine PHA 01/07/25 Logged Hydrochloride 22:00 Venlafaxine PHA 01/07/25 Logged Hydrochloride 11:15 Date of Service: Jan 07, 2025 Billing Provider: ELIAN LAUREN MD Common Visit Codes: [id number] INP/OBS CARE(HIGH) ELIAN LAUREN MD Jan 07, 2025 11:30
[2025-01-07] MEDS: VENLAFAXINE HCL 37.5MG TABLET PO ONE (11:57)
--- NOTE | 2025-01-07 16:15 | DVHPN2 ---
Progress Note Date Seen: Jan 07, 2025 Medical Necessity Reason Pt with a Central, PICC or Fol: No Subjective Changes from previous H/P or p: No Changes Objective vital signs Vital Sign Date Time Temp Pulse Resp B/P (MAP) Pulse Ox O2 Delivery O2 Flow Rate FiO2 01/07/25 10:17 74 143/84 01/07/25 09:00 98.0 17 95 98.0 01/07/25 08:15 Room Air* 0 21 Total Intake and Output 01/06/25 01/06/25 01/07/25 15:00 23:00 07:00 Intake Total 1500 ml 450 ml Output Total 825 ml Balance 1500 ml -375 ml medications Current Medications Medications Dose Ordered Sig/Elham Route Start Time Stop Time Status Last Admin Dose Admin Cefepime HCl 50 ml @ 12.5 mls/hr Q12HR IV 01/03/25 22:00 01/07/25 09:15 12.5 MLS/HR Empaglifozin 10 mg DAILY PO 01/04/25 10:00 01/07/25 09:16 10 MG Metoprolol Tartrate 50 mg BID PO 01/03/25 22:00 01/07/25 09:17 50 MG Albuterol 2.5 mg Q6HPRN PRN NEB 01/03/25 18:00 01/06/25 22:05 2.5 MG Diagnostic Test (Pha) 1 strip ACHS 01/03/25 22:00 01/07/25 11:30 1 STRIP Insulin Human Regular ACHS SC 01/03/25 22:00 01/07/25 12:25 6 UNITS Dextrose 50 ml UD PRN IV 01/03/25 18:00 Acetaminophen/ Hydrocodone Bitart 1 tab Q4HP PRN PO 01/03/25 18:00 01/07/25 04:23 1 TAB Ondansetron HCl 4 mg Q4HP PRN IV 01/03/25 18:00 Acetaminophen 650 mg Q6HP PRN PO 01/03/25 18:00 Morphine Sulfate 2 mg Q4HPRN PRN IV 01/03/25 18:00 Gabapentin 600 mg HS PO 01/03/25 22:00 01/06/25 21:57 600 MG Gabapentin 300 mg DAILY PO 01/04/25 10:00 01/07/25 09:16 300 MG Aspirin 81 mg HS PO 01/03/25 22:00 01/06/25 21:57 81 MG Mirtazapine 30 mg HS PO 01/03/25 22:00 01/06/25 21:57 30 MG Vancomycin HCl 0 ml @ 0 mls/hr UD IV 01/04/25 12:30 Docusate Sodium 100 mg BID PO 01/04/25 22:00 01/07/25 09:16 100 MG Lactulose 30 ml DAILY PO 01/04/25 20:00 01/06/25 11:11 30 ML Baclofen 10 mg BID PO 01/04/25 22:00 01/07/25 09:16 10 MG Hydrocortisone 1 applic BID TOP 01/04/25 22:00 01/07/25 09:18 1 APPLIC Melatonin 7.5 mg HS PO 01/05/25 22:00 01/06/25 21:56 7.5 MG Venlafaxine HCl 37.5 mg BID PO 01/07/25 22:00 Examination: GENERAL:Normal laboratory and microbiology Laboratory Tests 01/07/25 06:42 01/06/25 07:24 Test 01/06/25 07:24 Range/Units Serum Glucose 155 H 74-106 mg/dL Microbiology Date/Time Source Procedure Growth Status 01/03/25 15:56 Blood Blood Culture - Preliminary NO GROWTH AFTER 72 HOURS OF INCUBATION. Resulted Problem List/Assessment/Plan Problem List/Assessment/Plan Acute kidney injury on Chronic kidney disease IIIb hemodynamic mediated etiology Underlying diabetic nephropathy Hypertension Diabetes type 2 Vertebral diskitis /osteomyelitis Possible spinal abscess Congestive heart failure Monitor renal function closely better today Kidney ultrasound wnl Currently on broad-spectrum IV antibiotics--monitor for worsening of Acute kidney injury on vancomycin. vanco level today is 18 which is within range . rec check level tomorrow am before dosing We will follow closely Spinal surgery has been consulted Plan discussed with: Patient Total Time (mins): 26 CHICHI MEDRANO MD Jan 07, 2025 16:15
[2025-01-07] MEDS: VANCOMYCIN 750MG KIT 100 ML IV ONE (17:18)
[2025-01-07] MEDS: VENLAFAXINE HCL 37.5MG TABLET PO SCH (21:39)
[2025-01-08] VITALS (9 sets, daily range): BP systolic 106–133; BP diastolic 51–86; PULSE 65–82; RESP 15–20; TEMP 97.7–98.6; O2SAT 93–100
--- NOTE | 2025-01-08 09:19 | DVHPN2 ---
Progress Note Date Seen: Jan 08, 2025 Medical Necessity Reason Pt with a Central, PICC or Fol: No Objective vital signs Vital Sign Date Time Temp Pulse Resp B/P (MAP) Pulse Ox O2 Delivery O2 Flow Rate FiO2 01/08/25 07:16 98 Room Air* 0 21 01/08/25 05:00 98.0 65 20 106/51 (69) 98.0 Total Intake and Output 01/07/25 01/07/25 01/08/25 15:00 23:00 07:00 Intake Total 900 ml 570 ml Output Total 400 ml Balance 900 ml 170 ml medications Current Medications Medications Dose Ordered Sig/Elham Route Start Time Stop Time Status Last Admin Dose Admin Cefepime HCl 50 ml @ 12.5 mls/hr Q12HR IV 01/03/25 22:00 01/07/25 21:26 12.5 MLS/HR Empaglifozin 10 mg DAILY PO 01/04/25 10:00 01/07/25 09:16 10 MG Metoprolol Tartrate 50 mg BID PO 01/03/25 22:00 01/07/25 21:27 50 MG Albuterol 2.5 mg Q6HPRN PRN NEB 01/03/25 18:00 01/07/25 22:04 2.5 MG Diagnostic Test (Pha) 1 strip ACHS 01/03/25 22:00 01/08/25 06:08 1 STRIP Insulin Human Regular ACHS SC 01/03/25 22:00 01/08/25 06:10 2 UNITS Dextrose 50 ml UD PRN IV 01/03/25 18:00 Acetaminophen/ Hydrocodone Bitart 1 tab Q4HP PRN PO 01/03/25 18:00 01/08/25 00:09 1 TAB Ondansetron HCl 4 mg Q4HP PRN IV 01/03/25 18:00 Acetaminophen 650 mg Q6HP PRN PO 01/03/25 18:00 Morphine Sulfate 2 mg Q4HPRN PRN IV 01/03/25 18:00 Gabapentin 600 mg HS PO 01/03/25 22:00 01/07/25 21:26 600 MG Gabapentin 300 mg DAILY PO 01/04/25 10:00 01/07/25 09:16 300 MG Aspirin 81 mg HS PO 01/03/25 22:00 01/07/25 21:27 81 MG Mirtazapine 30 mg HS PO 01/03/25 22:00 01/07/25 21:26 30 MG Vancomycin HCl 0 ml @ 0 mls/hr UD IV 01/04/25 12:30 Docusate Sodium 100 mg BID PO 01/04/25 22:00 01/07/25 21:27 100 MG Lactulose 30 ml DAILY PO 01/04/25 20:00 01/06/25 11:11 30 ML Baclofen 10 mg BID PO 01/04/25 22:00 01/07/25 21:27 10 MG Hydrocortisone 1 applic BID TOP 01/04/25 22:00 01/07/25 21:45 1 APPLIC Melatonin 7.5 mg HS PO 01/05/25 22:00 01/07/25 21:27 7.5 MG Venlafaxine HCl 37.5 mg BID PO 01/07/25 22:00 Examination: GENERAL:Normal, CVS:Normal laboratory and microbiology Laboratory Tests 01/08/25 06:46 01/07/25 06:42 01/06/25 07:24 Test 01/06/25 07:24 Range/Units Serum Glucose 155 H 74-106 mg/dL Microbiology Date/Time Source Procedure Growth Status 01/03/25 15:56 Blood Blood Culture - Preliminary NO GROWTH AFTER 72 HOURS OF INCUBATION. Resulted Problem List/Assessment/Plan Problem List/Assessment/Plan Acute kidney injury on Chronic kidney disease IIIb hemodynamic mediated etiology Underlying diabetic nephropathy Hypertension Diabetes type 2 Vertebral diskitis /osteomyelitis Possible spinal abscess Congestive heart failure renal function stable no new recs Kidney ultrasound wnl Currently on broad-spectrum IV antibiotics--monitor for worsening of Acute kidney injury on vancomycin. vanco level today is 14 Spinal surgery has been consulted Plan discussed with: Patient My Orders My Orders Orders - CHICHI MEDRANO MD Procedure Category Date Status Time Basic Metabolic Panel LAB 01/09/25 Verified 04:00 CHICHI MEDRANO MD Jan 08, 2025 09:19
--- NOTE | 2025-01-08 10:06 | DVHPN2 ---
Subjective Patient is seen at bedside today, pain continuing. Reviewed: Care Plan Changes from previous H/P or p: No Changes General: Per HPI Objective Vitals Vital Signs Date Time Temp Pulse Resp B/P (MAP) Pulse Ox O2 Delivery O2 Flow Rate FiO2 01/08/25 09:48 79 130/71 01/08/25 07:16 98 Room Air* 0 21 01/08/25 05:00 98.0 20 98.0 Intake/Output Intake and Output 01/08/25 07:00 Intake Total 1470 ml Output Total 400 ml Balance 1070 ml Intake Oral 1320 ml IV Total 150 ml Output Urine Total 400 ml # Voids 4 Exam GEN: Healthy appearing, well-developed, NAD. HEENT: NC/AT; MMM. CV: RRR, no m/r/g. LUNGS: CTAB, no w/r/c. ABD: Soft, NT/ND, NBS, no masses or organomegaly. EXT: skin Warm, well perfused. no rashes. No clubbing, cyanosis, or edema. NEURO: Ambulating with no limitations. No focal deficits. Patient has spinal tenderness L4-L5 mild tenderness bilaterally Medications Current Medications Medications Dose Ordered Sig/Elham Route Start Time Stop Time Status Last Admin Dose Admin Cefepime HCl 50 ml @ 12.5 mls/hr Q12HR IV 01/03/25 22:00 01/08/25 09:58 12.5 MLS/HR Empaglifozin 10 mg DAILY PO 01/04/25 10:00 01/08/25 09:48 10 MG Metoprolol Tartrate 50 mg BID PO 01/03/25 22:00 01/08/25 09:48 50 MG Albuterol 2.5 mg Q6HPRN PRN NEB 01/03/25 18:00 01/07/25 22:04 2.5 MG Diagnostic Test (Pha) 1 strip ACHS 01/03/25 22:00 01/08/25 06:08 1 STRIP Insulin Human Regular ACHS SC 01/03/25 22:00 01/08/25 06:10 2 UNITS Dextrose 50 ml UD PRN IV 01/03/25 18:00 Acetaminophen/ Hydrocodone Bitart 1 tab Q4HP PRN PO 01/03/25 18:00 01/08/25 00:09 1 TAB Ondansetron HCl 4 mg Q4HP PRN IV 01/03/25 18:00 Acetaminophen 650 mg Q6HP PRN PO 01/03/25 18:00 Morphine Sulfate 2 mg Q4HPRN PRN IV 01/03/25 18:00 Gabapentin 600 mg HS PO 01/03/25 22:00 01/07/25 21:26 600 MG Gabapentin 300 mg DAILY PO 01/04/25 10:00 01/08/25 09:47 300 MG Aspirin 81 mg HS PO 01/03/25 22:00 01/07/25 21:27 81 MG Mirtazapine 30 mg HS PO 01/03/25 22:00 01/07/25 21:26 30 MG Vancomycin HCl 0 ml @ 0 mls/hr UD IV 01/04/25 12:30 Docusate Sodium 100 mg BID PO 01/04/25 22:00 01/08/25 09:49 100 MG Lactulose 30 ml DAILY PO 01/04/25 20:00 01/08/25 09:47 30 ML Baclofen 10 mg BID PO 01/04/25 22:00 01/08/25 09:48 10 MG Hydrocortisone 1 applic BID TOP 01/04/25 22:00 01/08/25 10:01 1 APPLIC Melatonin 7.5 mg HS PO 01/05/25 22:00 01/07/25 21:27 7.5 MG Venlafaxine HCl 37.5 mg BID PO 01/07/25 22:00 01/08/25 09:48 37.5 MG Laboratory Results Laboratory Tests 01/06/25 07:24 01/07/25 06:42 01/08/25 06:46 Urinalysis Test 01/06/25 01:45 Urine Color Colorless (Yellow) Urine Clarity Clear (Clear) Urine pH 6.0 (5.0-9.0) Urine Specific [place] 1.013 (1.001-1.035) Urine Protein Negative (Negative) Urine Ketones Negative (Negative) Urine Blood Negative /uL (Negative) Urine Nitrite Negative (Negative) Urine Bilirubin Negative (Negative) Urine Urobilinogen Normal mg/dL (Negative) Urine Leukocyte Esterase Negative /uL (Negative) Urine RBC <1 /hpf (0 - 3) Urine Microscopic WBC < 2 /HPF (0-3) Urine Squamous Epithelial Cells Few /hpf (<5) Urine Bacteria None seen /hpf (None Seen) Urine Creatinine 32.99 mg/dL (30.0-125.0) Urine Protein/Creatinine Ratio 0.18 Urine Glucose 4+ mg/dL (Normal) H Urine Total Protein < 6.0 mg/dL (1-14) Microbiology Microbiology Date/Time Source Procedure Growth Status 01/03/25 15:56 Blood Blood Culture - Preliminary NO GROWTH AFTER 72 HOURS OF INCUBATION. Resulted Labs and/or images reviewed: Labs reviewed by me, Image(s) reviewed by me Assessment/Plan Assessment/Plan 64-year-old male past medical history of PID diabetic neuropathy, chronic back. Patient presented with chief complaint of lower back pain radiating down to left leg. The pain has been worse for the last 1 month and now started radiating to left leg with the bed affecting his mobility. Patient denies saddle anesthesia, urinary incontinence, bowel incontinence, fever chills, shortness of breath, chest pain, abdominal pain, nausea and vomiting, headache or other complaints. Patient will be admitted for further assessments. 01/04: Patient has spinal epidural abscess, we need to transfer patient for high level of care for spinal Neurosurgery. We are calling spinal ortho to support the case. Until then we will continue vancomycin cefepime. 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 PT needs to work less patient have effort only maximum out of room and back. We will continue pain control. We will add baclofen 10 twice daily, holding off any steroids which could worsen condition/infection. 01/05: Patient doing well no symptoms or red flags of spinal compression, patient walking has feeling in lower legs bilaterally present. Patient worked with PT and doing better today yesterday he will be PT and has significant pain, today not so much. Early communication with spinal ortho suggestive that we can keep patient and Tuesday we can review with spinal ortho. We will also start consult with ID for likely osteomyelitis of the lumbar spine. Continue IV antibiotics. 01/06: Patient is seen today, doing well. Worked with PT even better today. Using wheelchair otherwise. No spinal tenderness, paraspinal tenderness present. Lower extremities still function intact sensation and motor intact no bowel bladder loss. Tomorrow plan for spinal ortho and ID to evaluate patient, with outpatient plan. Patient will likely need long-term antibiotics for osteo myelitis in vertebrae. 01/07: Patient doing well, back pain tolerable, already on gabapentin no need to add Lyrica or Cymbalta. Patient takes Effexor, more reason to not add Cymbalta. We will continue to wait for eval by ID and spinal ortho. Continue IV antibiotics for diskitis vertebral osteomyelitis. 01/08: Spinal ortho things we can try IV antibiotics with help of ID. Waiting for ID consult to see patient. We will start PICC line in anticipation of IV antibiotics 6 weeks. Diagnosis: Vertebral discitis Vertebral osteomyelitis ?Spinal epidural abscess, ruled out aram vmn Chronic back pain with radiculopathy History of sciatica PAD Diabetic neuropathy Plan: MRI concerning for vertebral osteomyelitis and spinal epidural abscess -continue IV antibiotics vancomycin/cefepime Spinal ortho consulted Patient will likely need transfer to high level of care for spinal surgery to deal with epidural abscess Continue prn pain control Baclofen 10 mg twice daily Patient on chronic pain control opiates, we will need bowel regimen we will start docusate 100 mg twice daily, lactulose 30 daily, Holding off steroids Aspirin 81, Jardiance 10, Lasix 40 daily, gabapentin 600 nightly, gabapentin 300 daily, lactulose 30 daily, metoprolol 50 b.i.d., mirtazapine 30 HS, Prn Zofran Diabetic diet Tele Full code Plan discussed with: Other My Orders Orders - ELIAN LAUREN MD Procedure Category Date Status Time Venlafaxine PHA 01/07/25 In Process Hydrochloride 22:00 Vancomycin PHA 01/08/25 Logged 1.25gm/250ml 17:00 Vancomycin,Random LAB 01/09/25 Verified 04:00 Date of Service: Jan 08, 2025 Billing Provider: ELIAN LAUREN MD Common Visit Codes: [id number] INP/OBS CARE(HIGH) ELIAN LAUREN MD Jan 08, 2025 10:06
[2025-01-08 11:23] LABS: INR 1.03 (0.9-1.15); Prothrombin Time 10.9 sec (9.3-11.8)
[2025-01-08] MEDS: VANCOMYCIN 1.25GM/250ML 250 ML IV ONE (17:10)
[2025-01-09] VITALS (9 sets, daily range): BP systolic 125–146; BP diastolic 71–98; PULSE 81–92; RESP 15–18; TEMP 92.8–98.5; O2SAT 94–98
[2025-01-09 08:15] LABS: Hematocrit 43.4 % (41.0-53.0); Hemoglobin 15.0 g/dL (13.5-17.5); Mean Corpuscular Hemoglobin 31.6 pg (28.0-32.0); Mean Corpuscular Volume 91.6 fL (80.0-100.0); Nucleated Red Blood Cells % 0.0 %
[2025-01-09 08:16] LABS: Anion Gap 11 (5-15); Carbon Dioxide 25 mmol/L (20-31); Chloride 103 mmol/L (98-107); Potassium 4.3 mmol/L (3.5-5.1); Sodium 139 mmol/L (136-145)
[2025-01-09 08:18] LABS: Calcium 10.0 mg/dL (8.7-10.4)
[2025-01-09 08:22] LABS: BUN/Creatinine Ratio 18.2 (10.0-20.0); Blood Urea Nitrogen 22 mg/dL (9-23)
[2025-01-09 08:25] LABS: Glucose 156 mg/dL (74-106)
--- NOTE | 2025-01-09 11:13 | DVHPN2 ---
Subjective Patient is seen at bedside today, pain continuing. Reviewed: Care Plan Changes from previous H/P or p: No Changes General: Per HPI Objective Vitals Vital Signs Date Time Temp Pulse Resp B/P (MAP) Pulse Ox O2 Delivery O2 Flow Rate FiO2 01/09/25 09:51 92 136/77 01/09/25 09:00 98.4 18 98 98.4 01/09/25 08:15 Room Air* 0 21 Intake/Output Intake and Output 01/09/25 07:00 Intake Total 1250 ml Output Total 1700 ml Balance -450 ml Intake Oral 1150 ml IV Total 100 ml Output Urine Total 1700 ml Exam GEN: Healthy appearing, well-developed, NAD. HEENT: NC/AT; MMM. CV: RRR, no m/r/g. LUNGS: CTAB, no w/r/c. ABD: Soft, NT/ND, NBS, no masses or organomegaly. EXT: skin Warm, well perfused. no rashes. No clubbing, cyanosis, or edema. NEURO: Ambulating with no limitations. No focal deficits. Patient has spinal tenderness L4-L5 mild tenderness bilaterally Medications Current Medications Medications Dose Ordered Sig/Elham Route Start Time Stop Time Status Last Admin Dose Admin Cefepime HCl 50 ml @ 12.5 mls/hr Q12HR IV 01/03/25 22:00 01/09/25 09:52 12.5 MLS/HR Empaglifozin 10 mg DAILY PO 01/04/25 10:00 01/09/25 09:51 10 MG Metoprolol Tartrate 50 mg BID PO 01/03/25 22:00 01/09/25 09:51 50 MG Albuterol 2.5 mg Q6HPRN PRN NEB 01/03/25 18:00 01/08/25 22:05 2.5 MG Diagnostic Test (Pha) 1 strip ACHS 01/03/25 22:00 01/09/25 06:04 1 STRIP Insulin Human Regular ACHS SC 01/03/25 22:00 01/09/25 06:05 2 UNITS Dextrose 50 ml UD PRN IV 01/03/25 18:00 Acetaminophen/ Hydrocodone Bitart 1 tab Q4HP PRN PO 01/03/25 18:00 01/08/25 00:09 1 TAB Ondansetron HCl 4 mg Q4HP PRN IV 01/03/25 18:00 Acetaminophen 650 mg Q6HP PRN PO 01/03/25 18:00 Morphine Sulfate 2 mg Q4HPRN PRN IV 01/03/25 18:00 Gabapentin 600 mg HS PO 01/03/25 22:00 01/08/25 21:21 600 MG Gabapentin 300 mg DAILY PO 01/04/25 10:00 01/09/25 09:51 300 MG Aspirin 81 mg HS PO 01/03/25 22:00 01/08/25 21:19 81 MG Mirtazapine 30 mg HS PO 01/03/25 22:00 01/08/25 21:19 30 MG Vancomycin HCl 0 ml @ 0 mls/hr UD IV 01/04/25 12:30 Docusate Sodium 100 mg BID PO 01/04/25 22:00 01/09/25 09:51 100 MG Lactulose 30 ml DAILY PO 01/04/25 20:00 01/09/25 09:51 30 ML Baclofen 10 mg BID PO 01/04/25 22:00 01/09/25 09:51 10 MG Hydrocortisone 1 applic BID TOP 01/04/25 22:00 01/08/25 21:37 1 APPLIC Melatonin 7.5 mg HS PO 01/05/25 22:00 01/08/25 21:19 7.5 MG Venlafaxine HCl 37.5 mg BID PO 01/07/25 22:00 01/09/25 09:50 37.5 MG Vancomycin HCl 100 ml @ 100 mls/hr Q12H IV 01/09/25 12:00 UNV Laboratory Results Laboratory Tests 01/09/25 07:09 Chemistry Test 01/09/25 07:09 Calcium Level 10.0 mg/dL (8.7-10.4) Urinalysis Test 01/06/25 01:45 Urine Color Colorless (Yellow) Urine Clarity Clear (Clear) Urine pH 6.0 (5.0-9.0) Urine Specific [place] 1.013 (1.001-1.035) Urine Protein Negative (Negative) Urine Ketones Negative (Negative) Urine Blood Negative /uL (Negative) Urine Nitrite Negative (Negative) Urine Bilirubin Negative (Negative) Urine Urobilinogen Normal mg/dL (Negative) Urine Leukocyte Esterase Negative /uL (Negative) Urine RBC <1 /hpf (0 - 3) Urine Microscopic WBC < 2 /HPF (0-3) Urine Squamous Epithelial Cells Few /hpf (<5) Urine Bacteria None seen /hpf (None Seen) Urine Creatinine 32.99 mg/dL (30.0-125.0) Urine Protein/Creatinine Ratio 0.18 Urine Glucose 4+ mg/dL (Normal) H Urine Total Protein < 6.0 mg/dL (1-14) Microbiology Microbiology Date/Time Source Procedure Growth Status 01/03/25 15:56 Blood Blood Culture - Final NO GROWTH AFTER 5 DAYS OF INCUBATION. Complete Labs and/or images reviewed: Labs reviewed by me, Image(s) reviewed by me Assessment/Plan Assessment/Plan 64-year-old male past medical history of PID diabetic neuropathy, chronic back. Patient presented with chief complaint of lower back pain radiating down to left leg. The pain has been worse for the last 1 month and now started radiating to left leg with the bed affecting his mobility. Patient denies saddle anesthesia, urinary incontinence, bowel incontinence, fever chills, shortness of breath, chest pain, abdominal pain, nausea and vomiting, headache or other complaints. Patient will be admitted for further assessments. 01/04: Patient has spinal epidural abscess, we need to transfer patient for high level of care for spinal Neurosurgery. We are calling spinal ortho to support the case. Until then we will continue vancomycin cefepime. 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 PT needs to work less patient have effort only maximum out of room and back. We will continue pain control. We will add baclofen 10 twice daily, holding off any steroids which could worsen condition/infection. 01/05: Patient doing well no symptoms or red flags of spinal compression, patient walking has feeling in lower legs bilaterally present. Patient worked with PT and doing better today yesterday he will be PT and has significant pain, today not so much. Early communication with spinal ortho suggestive that we can keep patient and Tuesday we can review with spinal ortho. We will also start consult with ID for likely osteomyelitis of the lumbar spine. Continue IV antibiotics. 01/06: Patient is seen today, doing well. Worked with PT even better today. Using wheelchair otherwise. No spinal tenderness, paraspinal tenderness present. Lower extremities still function intact sensation and motor intact no bowel bladder loss. Tomorrow plan for spinal ortho and ID to evaluate patient, with outpatient plan. Patient will likely need long-term antibiotics for osteo myelitis in vertebrae. 01/07: Patient doing well, back pain tolerable, already on gabapentin no need to add Lyrica or Cymbalta. Patient takes Effexor, more reason to not add Cymbalta. We will continue to wait for eval by ID and spinal ortho. Continue IV antibiotics for diskitis vertebral osteomyelitis. 01/08: Spinal ortho things we can try IV antibiotics with help of ID. Waiting for ID consult to see patient. We will start PICC line in anticipation of IV antibiotics 6 weeks. 01/09: Continue patient IV antibiotics. spinal epidural abscess, lower suspicion. Today PICC line will be inserted, we will contact ID for antibiotics we will likely need vancomycin and ceftriaxone 6 weeks, with home health. Also ID to see patient today. Possible DC tomorrow. Diagnosis: Vertebral discitis Vertebral osteomyelitis ?Spinal epidural abscess, ruled out aram vmn Chronic back pain with radiculopathy History of sciatica PAD Diabetic neuropathy Plan: MRI concerning for vertebral osteomyelitis and spinal epidural abscess -continue IV antibiotics vancomycin/cefepime Spinal ortho consulted Patient will likely need transfer to high level of care for spinal surgery to deal with epidural abscess Continue prn pain control Baclofen 10 mg twice daily Patient on chronic pain control opiates, we will need bowel regimen we will start docusate 100 mg twice daily, lactulose 30 daily, Holding off steroids Aspirin 81, Jardiance 10, Lasix 40 daily, gabapentin 600 nightly, gabapentin 300 daily, lactulose 30 daily, metoprolol 50 b.i.d., mirtazapine 30 HS, Prn Zofran Diabetic diet Tele Full code Plan discussed with: Patient My Orders Orders - ELIAN LAUREN MD Procedure Category Date Status Time * Picc Line Consult CONS 01/08/25 Transmitted 13:38 * Infectious [place]- CONS 01/08/25 Transmitted Timothy Guthrie 13:38 Vancomycin 750mg Kit PHA 01/09/25 Logged (Vancomycin Hcl) 12:00 Vancomycin,Trough LAB 01/10/25 Verified 23:00 Creatinine LAB 01/10/25 Verified 04:00 Vancomycin Per JAYDA 01/09/25 In Process [facility] 12:00 Date of Service: Jan 09, 2025 Billing Provider: ELIAN LAUREN MD Common Visit Codes: [id number] INP/OBS CARE(HIGH) ELIAN LAUREN MD Jan 09, 2025 11:13
[2025-01-09] MEDS ORDERED: VANCOMYCIN 750MG KIT 100 ML IV SCH (12:00)
--- NOTE | 2025-01-09 15:00 | DVHPN2 ---
Progress Note Date Seen: Jan 09, 2025 Medical Necessity Reason Pt with a Central, PICC or Fol: No Subjective Changes from previous H/P or p: No Changes Objective vital signs Vital Sign Date Time Temp Pulse Resp B/P (MAP) Pulse Ox O2 Delivery O2 Flow Rate FiO2 01/09/25 13:00 98.2 91 18 138/98 (111) 96 98.2 01/09/25 08:15 Room Air* 0 21 Total Intake and Output 01/08/25 01/08/25 01/09/25 15:00 23:00 07:00 Intake Total 50 ml 850 ml 350 ml Output Total 900 ml 800 ml Balance 50 ml -50 ml -450 ml medications Current Medications Medications Dose Ordered Sig/Elham Route Start Time Stop Time Status Last Admin Dose Admin Cefepime HCl 50 ml @ 12.5 mls/hr Q12HR IV 01/03/25 22:00 01/09/25 09:52 12.5 MLS/HR Empaglifozin 10 mg DAILY PO 01/04/25 10:00 01/09/25 09:51 10 MG Metoprolol Tartrate 50 mg BID PO 01/03/25 22:00 01/09/25 09:51 50 MG Albuterol 2.5 mg Q6HPRN PRN NEB 01/03/25 18:00 01/08/25 22:05 2.5 MG Diagnostic Test (Pha) 1 strip ACHS 01/03/25 22:00 01/09/25 11:35 1 STRIP Insulin Human Regular ACHS SC 01/03/25 22:00 01/09/25 11:38 32 UNITS Dextrose 50 ml UD PRN IV 01/03/25 18:00 Acetaminophen/ Hydrocodone Bitart 1 tab Q4HP PRN PO 01/03/25 18:00 01/08/25 00:09 1 TAB Ondansetron HCl 4 mg Q4HP PRN IV 01/03/25 18:00 Acetaminophen 650 mg Q6HP PRN PO 01/03/25 18:00 Morphine Sulfate 2 mg Q4HPRN PRN IV 01/03/25 18:00 Gabapentin 600 mg HS PO 01/03/25 22:00 01/08/25 21:21 600 MG Gabapentin 300 mg DAILY PO 01/04/25 10:00 01/09/25 09:51 300 MG Aspirin 81 mg HS PO 01/03/25 22:00 01/08/25 21:19 81 MG Mirtazapine 30 mg HS PO 01/03/25 22:00 01/08/25 21:19 30 MG Vancomycin HCl 0 ml @ 0 mls/hr UD IV 01/04/25 12:30 Docusate Sodium 100 mg BID PO 01/04/25 22:00 01/09/25 09:51 100 MG Lactulose 30 ml DAILY PO 01/04/25 20:00 01/09/25 09:51 30 ML Baclofen 10 mg BID PO 01/04/25 22:00 01/09/25 09:51 10 MG Hydrocortisone 1 applic BID TOP 01/04/25 22:00 01/09/25 10:00 1 APPLIC Melatonin 7.5 mg HS PO 01/05/25 22:00 01/08/25 21:19 7.5 MG Venlafaxine HCl 37.5 mg BID PO 01/07/25 22:00 01/09/25 09:50 37.5 MG Vancomycin HCl 100 ml @ 100 mls/hr Q12H IV 01/09/25 12:00 UNV Examination: GENERAL:Normal, SKIN:Normal laboratory and microbiology Laboratory Tests 01/09/25 07:09 Test 01/09/25 07:09 Range/Units Serum Glucose 156 H 74-106 mg/dL Microbiology Date/Time Source Procedure Growth Status 01/03/25 15:56 Blood Blood Culture - Final NO GROWTH AFTER 5 DAYS OF INCUBATION. Complete Problem List/Assessment/Plan Problem List/Assessment/Plan Acute kidney injury on Chronic kidney disease IIIb hemodynamic mediated etiology Underlying diabetic nephropathy Hypertension Diabetes type 2 Vertebral diskitis /osteomyelitis Possible spinal abscess Congestive heart failure renal function stable no new recs Kidney ultrasound wnl Currently on broad-spectrum IV antibiotics--monitor for worsening of Acute kidney injury on vancomycin. May proceed with PICC line from renal standpoint Spinal surgery has been consulted Plan discussed with: Patient Dietary Evaluation Review Comments: 1) Refer [employer] for diabetes education 2) Monitor PO intake, lab values, weight trend, and I/O Expected Outcomes/Goals: To meet >75% estimated needs Lab values to improve Fu 3-5 days CIHCHI MEDRANO MD Jan 09, 2025 15:00
[2025-01-09] MEDS: VANCOMYCIN 1.25GM/250ML 250 ML IV ONE (17:01)
--- NOTE | 2025-01-09 20:41 | DVHINCON2 ---
Date of service: Jan 08, 2025 Allergies: Coded Allergies: Pork (Porcine) Protein (Verified Allergy, Severe, 01/07/25) Home Meds Reported Medications Aspirin (Aspirin 81 Low Dose) 81 Mg Chw, 81 MG PO, TAB.CHEW 01/03/25 Melatonin (KP MELATONIN) 3 Mg Tab, 7.5 MG PO HS, TAB 01/03/25 Gabapentin (GABAPENTIN) 250 Mg/5 Ml Tisha, 300 MG PO DAILY, ML 01/03/25 Venlafaxine Hcl (Venlafaxine Hcl Er) 37.5 Mg Cap, 1 CAP PO DAILY, #30 CAP 2 Refills 01/03/25 Mirtazapine (REMERON) 30 Mg Tab, 1 TAB PO QPM, #30 TAB 1 Refill 01/03/25 Lisinopril (Lisinopril) 40 Mg Tab, 1 TAB PO DAILY, #30 TAB 5 Refills 01/03/25 Current Medications Current Medications Medications (Trade) Dose Ordered Sig/Elham Route PRN Reason Start Time Stop Time Status Last Admin Vancomycin HCl 100 ml @ 100 mls/hr Q12H IV 01/09/25 12:00 UNV Vital Signs Vital Signs Date Time Temp Pulse Resp B/P (MAP) Pulse Ox O2 Delivery O2 Flow Rate FiO2 01/09/25 17:00 97.7 81 17 139/74 (95) 98 97.7 01/09/25 08:15 Room Air* 0 21 Labs/Diagnostic Data Labs Test 01/09/25 16:58 01/09/25 07:09 01/08/25 06:46 01/06/25 01:45 Range/Units POC Glucose 126 H 70-106 mg/dl White Blood Count 13.4 H 4.4-10.8 10^3/uL Red Blood Count 4.74 4.5-5.90 10^6/uL Hemoglobin 15.0 13.5-17.5 g/dL Hematocrit 43.4 41.0-53.0 % Mean Corpuscular Volume 91.6 80.0-100.0 fL Mean Corpuscular Hemoglobin 31.6 28.0-32.0 pg Mean Corpuscular Hemoglobin Concent 34.5 32.0-36.0 g/dL Red Cell Distribution Width 14.6 H 11.8-14.3 % Platelet Count 310 140-450 10^3/uL Mean Platelet Volume 8.2 6.9-10.8 fL Neutrophils (%) (Auto) 67.3 37.0-80.0 % Lymphocytes (%) (Auto) 21.8 10.0-50.0 % Monocytes (%) (Auto) 6.8 0.0-12.0 % Eosinophils (%) (Auto) 2.9 0.0-7.0 % Basophils (%) (Auto) 1.2 0.0-2.0 % Neutrophils # (Auto) 9.0 H 1.6-8.6 10 ^3/uL Lymphocytes # (Auto) 2.9 0.4-5.4 10 ^3/uL Monocytes # (Auto) 0.9 0-1.3 10 ^3/uL Eosinophils # (Auto) 0.4 0-0.8 10 ^3/uL Basophils # (Auto) 0.2 0-0.2 10 ^3/uL Nucleated Red Blood Cells 0.0 % Sodium Level 139 136-145 mmol/L Potassium Level 4.3 3.5-5.1 mmol/L Chloride Level 103 98-107 mmol/L Carbon Dioxide Level 25 20-31 mmol/L Anion Gap 11 5-15 Blood Urea Nitrogen 22 9-23 mg/dL Creatinine 1.21 0.700-1.30 mg/dL Glomerular Filtration Rate Calc 68 >90 mL/min BUN/Creatinine Ratio 18.2 10.0-20.0 Serum Glucose 156 H 74-106 mg/dL Calcium Level 10.0 8.7-10.4 mg/dL Random Vancomycin Level 15.2 H 5-10 ug/mL Prothrombin Time 10.9 9.3-11.8 sec Prothrombin Time INR 1.03 0.9-1.15 Urine Color Colorless Yellow Urine Clarity Clear Clear Urine pH 6.0 5.0-9.0 Urine Specific [place] 1.013 1.001-1.035 Urine Protein Negative Negative Urine Ketones Negative Negative Urine Blood Negative Negative /uL Urine Nitrite Negative Negative Urine Bilirubin Negative Negative Urine Urobilinogen Normal Negative mg/dL Urine Leukocyte Esterase Negative Negative /uL Urine RBC <1 0 - 3 /hpf Urine Microscopic WBC < 2 0-3 /HPF Urine Squamous Epithelial Cells Few <5 /hpf Urine Bacteria None seen None Seen /hpf Urine Creatinine 32.99 30.0-125.0 mg/dL Urine Protein/Creatinine Ratio 0.18 Urine Glucose 4+ H Normal mg/dL Urine Total Protein < 6.0 1-14 mg/dL Test 01/04/25 05:43 01/03/25 15:56 Range/Units Differential Total Cells Counted 100.0 100 Neutrophils % (Manual) 60 37.0-80.0 Band Neutrophils % (Manual) 2 Lymphocytes % (Manual) 32 10.0-50.0 Monocytes % (Manual) 3 0-12 Eosinophils % (Manual) 1 0-7 Basophils % (Manual) 0 0.0-2.0 Metamyelocytes % (manual) 0 Myelocytes % (Manual) 2 Promyelocytes % (Manual) 0 Blast Cells % (Manual) 0 Reactive Lymphocytes 0 Platelet Estimate Adequate Smudge Cells 1 /100 WBC Lactic Acid Level 1.5 0.4-2.0 mmol/L C-Reactive Protein High Sensitivity 0.50 <1.0 mg/dL Microbiology Date/Time Source Procedure Growth Status 01/03/25 15:56 Blood Blood Culture - Final NO GROWTH AFTER 5 DAYS OF INCUBATION. Complete Problems(with codes): (1) Lumbar radiculopathy (2) DDD (degenerative disc disease), lumbar (3) Lumbar stenosis with neurogenic claudication (4) Discitis of lumbar region Plan/Recommendation ASSESSMENT AND PLAN: ID Problem List: \-- Discitis/osteomyelitis L2-L3 with associated severe degenerative disc disease \-- Suspected infectious etiology, possible hematogenous source \-- Acute kidney injury, improving \-- Poorly controlled diabetes mellitus Assessment This is a 64 y.o. male with a history of chronic back pain who presents with acute on chronic worsening low back pain radiating down the left leg for about one month with difficulty ambulating, now requiring a wheelchair for longer distances. He denies fevers, chills, urinary or bowel incontinence, focal neurologic deficits, or recent trauma. Exam noted no step-offs or spinal tender ness. MRI revealed severe degenerative disc disease at L2-L3 with cortical irregularity in opposing end plates and abnormal bone marrow signal highly suspicious for discitis/osteomyelitis. A ventral epidural fluid collection was noted from L2 to L4 but neurosurgical evaluation (Dr. Eddy) deems epidural abscess unlikely, favoring osteomyelitis/discitis only. The patient has leukocytosis on admission (WBC 10.8) and elevated creatinine (2.05 initially, improving to 1.21), with no growth on blood cultures to date. CRP is 0.5, lactic acid 1.5. He has a history of poorly controlled diabeteslaboratory studies and urine demonstrate glucosuria and elevated blood sugars; hemoglobin A1c has been sent. Plan: \-- Continue empiric IV antibiotics: vancomycin and cefepime at present; will transition to vancomycin and ceftriaxone for [address] Eddy for empiric coverage of possible hematogenous source/endocarditis. \-- Monitor CRP, ESR, renal function. \-- Renal US completed for JENNA. Continue to monitor creatinine/BUN; nephrology to be involved as needed. \-- Physical therapy after completion of 6 weeks antibiotics. \-- Follow-up MRI in 6 months to assess resolution. \-- Monitor for signs/symptoms of epidural abscess or neurologic compromise. \-- Optimize diabetes managementmonitor blood sugars, follow-up A1c, and plan for close outpatient primary care for regimen adjustments. \-- Blood cultures to be continued; note no growth to date. \-- Symptom-based follow-up after IV therapy; oral step-down antibiotics current ly not planned. \-- Encourage ambulation as tolerated with physical therapy support. Isolation Precautions: standard \*Assessment and plan was discussed with the patient as written above. \*Plan is subject to change pending incorporation of new incoming information/diagnostics. Updates may be added as addendum at the bottom (OR TOP) of this note. Thank you for interesting consult. ID will continue to follow. Please contact Infectious Disease for any questions or concerns. Rufino Amezquita M.D. [facility] Ph: ? \ History: The patient's chart and medications were reviewed in detail and the patient was seen and examined. History obtained from: patient Ted Dangelo is a 64 y.o. male with a history of chronic back pain who presents with acute worsening of low back pain radiating down his left leg for one month, with difficulty ambulating now requiring wheelchair for long distances. Denies fevers, chills, urinary or bowel incontinence, bug bites. No open wounds or ulcers. No new neurologic deficits noted. MRI showed severe degenerative changes at L2-L3, highly suspicious for osteomyelitis/discitis. No evidence for acute fracture. Review of Systems: A complete 10 system review of systems was completed and negative except as noted in the HPI or here. ROS: -CONSTITUTIONAL: Denies weight loss, fever and chills. -HEENT: Denies changes in vision and hearing. -RESPIRATORY: Denies SOB and cough. -CV: Denies palpitations and CP. -GI: Denies abdominal pain, nausea, vomiting and diarrhea. -: Denies dysuria, urinary frequency, or incontinence; no bowel incontinence. -MSK: Denies myalgia; does endorse worsening low back pain radiating to left leg with difficulty ambulating. -SKIN: Denies rash or open wounds. -NEUROLOGICAL: Denies headache and syncope; no new focal deficits reported, denies paresthesias. -PSYCHIATRIC: Denies recent changes in mood. Denies anxiety and depression. Past Medical History: Past Medical History: Diagnosis Date Chronic low back pain Diabetes mellitus (poorly controlled) Acute kidney injury (current) Past Surgical History: History reviewed. No pertinent surgical history reported. Home Medications: Not provided in transcript. Allergies: Allergies Not provided in transcript. Family History: Family History Not provided in transcript. Social History: Social History Not provided in transcript. Social Determinants of Health Not provided in transcript. Objective: Vital Signs on Arrival: Not provided in transcript. Most Recent Vital Signs: Not provided in transcript. Admission Weight: Not provided in transcript. Physical Exam: General: NAD Neck: Supple. No masses. HEENT: PERRL. Normal lids and conjunctiva. Moist mucous membranes. Oropharynx without lesions, exudates or excessive erythema. Normal appearance of the external aspects of the nose and ears. Heart: Regular rhythm, normal rate. No murmur. No lower extremity edema. Lungs: Normal respiratory effort. Clear to auscultation bilaterally. No wheezes. No crackles. Abdomen: Soft. Non-tender. Non-distended. No masses or abdominal hernia. Msk: No digital cyanosis. Normal strength and tone in all 4 limbs. No spinal tenderness. No step-offs. Skin: Warm and dry, no rashes. No open wounds or ulcers. Neuro: Alert. No facial droop or slurred speech. Extra-ocular movements intact. Sensation intact to soft touch in all 4 limbs. Psych: Appropriate mood. Full affect. Oriented to person, place, time, and situation. Lines: Not provided in transcript. Diagnostic Studies: Available diagnostic studies were reviewed personally. Significant relevant results and findings are outlined below or addressed in the Assessment and Plan above. Pertinent Imaging: MRI Lumbar Spine: -Marked/severe degeneration at L2-L3. Cortical irregularity in opposing endplates and abnormal marrow signal, highly suspicious for discitis/osteomyelitis. -Ventral epidural fluid collection extending from L2-L4 vertebral bodies. No evidence for acute abscess per neurosurgical evaluation. -Suspicion also for discitis/osteomyelitis at L3-L4. Renal Ultrasound: -Performed to evaluate acute kidney injury. Results not detailed in transcript. Laboratory: -WBC: 10.8 -Hemoglobin: 14.7 -Platelets: 344 -Creatinine: 2.05 improving to 1.21 -BUN: 38 -CRP: 0.5 -Lactic acid: 1.5 -Blood cultures: no growth to date Plan discussed with: Patient RUFINO AMEZQUITA MD Jan 09, 2025 20:41
--- NOTE | 2025-01-09 20:42 | DVHPN2 ---
Consult Progress Note Date Seen: Jan 09, 2025 Objective vital signs Vital Sign Date Time Temp Pulse Resp B/P (MAP) Pulse Ox O2 Delivery O2 Flow Rate FiO2 01/09/25 17:00 97.7 81 17 139/74 (95) 98 97.7 01/09/25 08:15 Room Air* 0 21 Total Intake and Output 01/08/25 01/08/25 01/09/25 15:00 23:00 07:00 Intake Total 50 ml 850 ml 350 ml Output Total 900 ml 800 ml Balance 50 ml -50 ml -450 ml medications Current Medications Medications Dose Ordered Sig/Elham Route Start Time Stop Time Status Last Admin Dose Admin Cefepime HCl 50 ml @ 12.5 mls/hr Q12HR IV 01/03/25 22:00 01/09/25 09:52 Empaglifozin 10 mg DAILY PO 01/04/25 10:00 01/09/25 09:51 Metoprolol Tartrate 50 mg BID PO 01/03/25 22:00 01/09/25 09:51 Albuterol 2.5 mg Q6HPRN PRN NEB 01/03/25 18:00 01/08/25 22:05 Diagnostic Test (Pha) 1 strip ACHS 01/03/25 22:00 01/09/25 16:59 Insulin Human Regular ACHS SC 01/03/25 22:00 01/09/25 11:38 Dextrose 50 ml UD PRN IV 01/03/25 18:00 Acetaminophen/ Hydrocodone Bitart 1 tab Q4HP PRN PO 01/03/25 18:00 01/08/25 00:09 Ondansetron HCl 4 mg Q4HP PRN IV 01/03/25 18:00 Acetaminophen 650 mg Q6HP PRN PO 01/03/25 18:00 Morphine Sulfate 2 mg Q4HPRN PRN IV 01/03/25 18:00 Gabapentin 600 mg HS PO 01/03/25 22:00 01/08/25 21:21 Gabapentin 300 mg DAILY PO 01/04/25 10:00 01/09/25 09:51 Aspirin 81 mg HS PO 01/03/25 22:00 01/08/25 21:19 Mirtazapine 30 mg HS PO 01/03/25 22:00 01/08/25 21:19 Vancomycin HCl 0 ml @ 0 mls/hr UD IV 01/04/25 12:30 Docusate Sodium 100 mg BID PO 01/04/25 22:00 01/09/25 09:51 Lactulose 30 ml DAILY PO 01/04/25 20:00 01/09/25 09:51 Baclofen 10 mg BID PO 01/04/25 22:00 01/09/25 09:51 Hydrocortisone 1 applic BID TOP 01/04/25 22:00 01/09/25 10:00 Melatonin 7.5 mg HS PO 01/05/25 22:00 01/08/25 21:19 Venlafaxine HCl 37.5 mg BID PO 01/07/25 22:00 01/09/25 09:50 Vancomycin HCl 100 ml @ 100 mls/hr Q12H IV 01/09/25 12:00 UNV laboratory and microbiology Laboratory Tests 01/09/25 07:09 Test 01/09/25 07:09 Range/Units Serum Glucose 156 H 74-106 mg/dL Problem List/Assessment/Plan Problem List/Assessment/Plan [facility] IV vancomycin 1.25 g every 24 hrs, dose adjust per pharmacy, goal trough 15-20 IV ceftriaxone 2g every 24 hrs weekly cmp, cbc, sed, crp, vancomycin trough. fax results to [phone] picc line care, home health, saline and heparin per protocol continue until 02/14/25, then remove picc line fu in ID clinic in 6 weeks [phone] Plan discussed with: Patient Dietary Evaluation Review Comments: 1) Refer Department Chairperson for diabetes education 2) Monitor PO intake, lab values, weight trend, and I/O Expected Outcomes/Goals: To meet >75% estimated needs Lab values to improve Fu 3-5 days RUFINO AMEZQUITA MD Jan 09, 2025 20:42
[2025-01-10] VITALS (13 sets, daily range): BP systolic 107–141; BP diastolic 67–81; PULSE 70–97; RESP 15–20; TEMP 98–98.5; O2SAT 78–100
[2025-01-10] MEDS ORDERED: diphenhdrAMINE-ZINC ACETATE 1 APPLIC APPL TOP PRN (12:45)
[2025-01-10] MEDS ORDERED: HYDR-4902 PO ×2 (15:47→15:51)
[2025-01-10] MEDS ORDERED: BACL10TA PO ×2 (15:47→15:51)
--- NOTE | 2025-01-10 15:57 | DVHDS2 ---
Discharge Summary Date of Admission Jan 03, 2025 at 17:50 Date of Discharge: Jan 10, 2025 Labs/Diagnostic Data: Laboratory Results Test 01/10/25 06:46 01/10/25 05:52 01/09/25 07:09 01/08/25 06:46 Creatinine 1.06 mg/dL (0.700-1.30) Glomerular Filtration Rate Calc 79 mL/min (>90) Random Vancomycin Level 15.7 ug/mL (5-10) POC Glucose 160 mg/dl (70-106) White Blood Count 13.4 10^3/uL (4.4-10.8) Red Blood Count 4.74 10^6/uL (4.5-5.90) Hemoglobin 15.0 g/dL (13.5-17.5) Hematocrit 43.4 % (41.0-53.0) Mean Corpuscular Volume 91.6 fL (80.0-100.0) Mean Corpuscular Hemoglobin 31.6 pg (28.0-32.0) Mean Corpuscular Hemoglobin Concent 34.5 g/dL (32.0-36.0) Red Cell Distribution Width 14.6 % (11.8-14.3) Platelet Count 310 10^3/uL (140-450) Mean Platelet Volume 8.2 fL (6.9-10.8) Neutrophils (%) (Auto) 67.3 % (37.0-80.0) Lymphocytes (%) (Auto) 21.8 % (10.0-50.0) Monocytes (%) (Auto) 6.8 % (0.0-12.0) Eosinophils (%) (Auto) 2.9 % (0.0-7.0) Basophils (%) (Auto) 1.2 % (0.0-2.0) Neutrophils # (Auto) 9.0 10 ^3/uL (1.6-8.6) Lymphocytes # (Auto) 2.9 10 ^3/uL (0.4-5.4) Monocytes # (Auto) 0.9 10 ^3/uL (0-1.3) Eosinophils # (Auto) 0.4 10 ^3/uL (0-0.8) Basophils # (Auto) 0.2 10 ^3/uL (0-0.2) Nucleated Red Blood Cells 0.0 % Sodium Level 139 mmol/L (136-145) Potassium Level 4.3 mmol/L (3.5-5.1) Chloride Level 103 mmol/L (98-107) Carbon Dioxide Level 25 mmol/L (20-31) Anion Gap 11 (5-15) Blood Urea Nitrogen 22 mg/dL (9-23) BUN/Creatinine Ratio 18.2 (10.0-20.0) Serum Glucose 156 mg/dL (74-106) Calcium Level 10.0 mg/dL (8.7-10.4) Prothrombin Time 10.9 sec (9.3-11.8) Prothrombin Time INR 1.03 (0.9-1.15) Test 01/06/25 01:45 01/04/25 05:43 01/03/25 15:56 Urine Color Colorless (Yellow) Urine Clarity Clear (Clear) Urine pH 6.0 (5.0-9.0) Urine Specific [place] 1.013 (1.001-1.035) Urine Protein Negative (Negative) Urine Ketones Negative (Negative) Urine Blood Negative /uL (Negative) Urine Nitrite Negative (Negative) Urine Bilirubin Negative (Negative) Urine Urobilinogen Normal mg/dL (Negative) Urine Leukocyte Esterase Negative /uL (Negative) Urine RBC <1 /hpf (0 - 3) Urine Microscopic WBC < 2 /HPF (0-3) Urine Squamous Epithelial Cells Few /hpf (<5) Urine Bacteria None seen /hpf (None Seen) Urine Creatinine 32.99 mg/dL (30.0-125.0) Urine Protein/Creatinine Ratio 0.18 Urine Glucose 4+ mg/dL (Normal) Urine Total Protein < 6.0 mg/dL (1-14) Differential Total Cells Counted 100.0 (100) Neutrophils % (Manual) 60 (37.0-80.0) Band Neutrophils % (Manual) 2 Lymphocytes % (Manual) 32 (10.0-50.0) Monocytes % (Manual) 3 (0-12) Eosinophils % (Manual) 1 (0-7) Basophils % (Manual) 0 (0.0-2.0) Metamyelocytes % (manual) 0 Myelocytes % (Manual) 2 Promyelocytes % (Manual) 0 Blast Cells % (Manual) 0 Reactive Lymphocytes 0 Platelet Estimate Adequate Smudge Cells 1 /100 WBC Lactic Acid Level 1.5 mmol/L (0.4-2.0) C-Reactive Protein High Sensitivity 0.50 mg/dL (<1.0) Other Laboratory Tests 01/10/25 06:46 01/09/25 07:09 Brief Hx & Hospital Course: 64-year-old male past medical history of PAD, diabetic neuropathy, chronic back pain. Patient presented with chief complaint of lower back pain radiating down to left leg. The pain has been worse for the last 1 month and now started radiating to left leg with the bed affecting his mobility. Patient denies saddle anesthesia, urinary incontinence, bowel incontinence, fever chills, shortness of breath, chest pain, abdominal pain, nausea and vomiting, headache or other complaints. Patient will be admitted for further assessments. 01/04: Patient has spinal epidural abscess, we need to transfer patient for high level of care for spinal Neurosurgery. We are calling spinal ortho to support the case. Until then we will continue vancomycin cefepime. 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 PT needs to work less patient have effort only maximum out of room and back. We will continue pain control. We will add baclofen 10 twice daily, holding off any steroids which could worsen condition/infection. 01/05: Patient doing well no symptoms or red flags of spinal compression, patient walking has feeling in lower legs bilaterally present. Patient worked with PT and doing better today yesterday he will be PT and has significant pain, today not so much. Early communication with spinal ortho suggestive that we can keep patient and Tuesday we can review with spinal ortho. We will also start consult with ID for likely osteomyelitis of the lumbar spine. Continue IV antibiotics. 01/06: Patient is seen today, doing well. Worked with PT even better today. Using wheelchair otherwise. No spinal tenderness, paraspinal tenderness present. Lower extremities still function intact sensation and motor intact no bowel bladder loss. Tomorrow plan for spinal ortho and ID to evaluate patient, with outpatient plan. Patient will likely need long-term antibiotics for osteo myelitis in vertebrae. 01/07: Patient doing well, back pain tolerable, already on gabapentin no need to add Lyrica or Cymbalta. Patient takes Effexor, more reason to not add Cymbalta. We will continue to wait for eval by ID and spinal ortho. Continue IV antibiotics for diskitis vertebral osteomyelitis. 01/08: Spinal ortho things we can try IV antibiotics with help of ID. Waiting for ID consult to see patient. We will start PICC line in anticipation of IV antibiotics 6 weeks. 01/09: Continue patient IV antibiotics. spinal epidural abscess, lower suspicion. Today PICC line will be inserted, we will contact ID for antibiotics we will likely need vancomycin and ceftriaxone 6 weeks, with home health. Also ID to see patient today. Possible DC tomorrow. 01/10: ID has seen the patient and has a discharge plan. Pharmacy confirms vancomycin dose. Stable for discharge as per plan below. Diagnosis: Vertebral discitis Vertebral osteomyelitis Spinal epidural abscess, ruled out aram vmn Chronic back pain with radiculopathy History of sciatica PAD Diabetic neuropathy discharge plan: - Continue home meds (aspirin 81, gabapentin 300 morning/ 600 nightly, lisinopril 40, melatonin nightly, Remeron 30 nightly, venlafaxine 37 mg daily, Jardiance 10 mg, metoprolol tartrate 50 mg twice daily, ) - start baclofen twice daily for 7 days and as needed thereafter - For pain okay to use Tylenol [id number] 1st line, ibuprofen 400 mg up to 3 times daily as needed as second-line, as 3rd line use prescribed [place] 5 mg up to 3 times daily as needed - Six weeks IV antibiotics, Dr. Harrison infectious disease following for outpatient. Ceftriaxone 2 g daily, vancomycin 1.25 g daily for 6 weeks. - Outpatient follow up with PCP 1-2 weeks - Follow up DC clinic - Follow up Infectious Disease Dr. Torres as scheduled. Condition at Discharge: Fair Final Diagnosis/Problems List Vertebral discitis Vertebral osteomyelitis Spinal epidural abscess, ruled out aram vmn Chronic back pain with radiculopathy History of sciatica PAD Diabetic neuropathy Discharge Disposition: Home with Health Services Discharge Instruct/Medications Diet: Cardiac 2g Na,low cholest Activity: No Restrictions, As Tolerated Scheduled Gabapentin (Gabapentin), 300 MG PO DAILY, (Reported) Lisinopril (Lisinopril), 1 TAB PO DAILY, (Reported) Melatonin (Kp Melatonin), 7.5 MG PO HS, (Reported) Mirtazapine (Remeron), 1 TAB PO QPM, (Reported) Venlafaxine Hcl (Venlafaxine Hcl Er), 1 CAP PO DAILY, (Reported) Scheduled PRN Baclofen (Baclofen), 10 MG PO TID PRN Hydrocodone-Acetaminophen (Hydrocodone Bitartrate/AC 5-325 mg), 1 TAB PO QIDP PRN Miscellaneous Medications Aspirin (Aspirin 81 Low Dose), 81 MG PO, (Reported) Discharge Statement: "Patient was advised to return to the ER or call 911 if any headaches, dizziness, shortness of breath, chest pain, abdominal pain, bleeding, fevers, or worsening of medical condition. Patient was counseled about treatment plan, medications, possible side effects, patientverbalized understanding. All questions were answered to the best of my ability. This discharge took greater then 30 minutes in planning, reviewing documentation, counseling the patient, and discussing with other team members." Date of Service: Jan 10, 2025 Billing Provider: ELIAN LAUREN MD Common Visit Codes: 42928-GWU/OBS DISCH DAY >30min ELIAN LAUREN MD Jan 10, 2025 15:57
[2025-01-10] MEDS: cefTRIAXone 1GM/50ML D5W 50 ML IV ONE (18:01)
[2025-01-10] MEDS: VANCOMYCIN 1.25GM/250ML 250 ML IV ONE (18:21)
--- NOTE | 2025-01-10 19:00 | DVHPN2 ---
Progress Note Date Seen: Jan 10, 2025 Medical Necessity Reason Pt with a Central, PICC or Fol: No The following are medically ne: PICC Line Subjective Changes from previous H/P or p: No Changes Objective vital signs Vital Sign Date Time Temp Pulse Resp B/P (MAP) Pulse Ox O2 Delivery O2 Flow Rate FiO2 01/10/25 17:00 98.0 75 17 140/81 (100) 98 98.0 01/10/25 15:45 Room Air 01/10/25 15:45 0 21 Total Intake and Output 01/09/25 01/09/25 01/10/25 15:00 23:00 07:00 Intake Total 50 ml 900 ml 400 ml Output Total 725 ml 700 ml Balance 50 ml 175 ml -300 ml medications Current Medications Medications Dose Ordered Sig/Elham Route Start Time Stop Time Status Last Admin Dose Admin Empaglifozin 10 mg DAILY PO 01/04/25 10:00 01/10/25 10:44 10 MG Metoprolol Tartrate 50 mg BID PO 01/03/25 22:00 01/10/25 10:55 50 MG Albuterol 2.5 mg Q6HPRN PRN NEB 01/03/25 18:00 01/08/25 22:05 2.5 MG Diagnostic Test (Pha) 1 strip ACHS 01/03/25 22:00 01/10/25 17:00 1 STRIP Insulin Human Regular ACHS SC 01/03/25 22:00 01/10/25 12:07 2 UNITS Dextrose 50 ml UD PRN IV 01/03/25 18:00 Acetaminophen/ Hydrocodone Bitart 1 tab Q4HP PRN PO 01/03/25 18:00 01/08/25 00:09 1 TAB Ondansetron HCl 4 mg Q4HP PRN IV 01/03/25 18:00 Acetaminophen 650 mg Q6HP PRN PO 01/03/25 18:00 Morphine Sulfate 2 mg Q4HPRN PRN IV 01/03/25 18:00 Gabapentin 600 mg HS PO 01/03/25 22:00 01/09/25 22:01 600 MG Gabapentin 300 mg DAILY PO 01/04/25 10:00 01/10/25 10:45 300 MG Aspirin 81 mg HS PO 01/03/25 22:00 01/09/25 21:59 81 MG Mirtazapine 30 mg HS PO 01/03/25 22:00 01/09/25 22:01 30 MG Vancomycin HCl 0 ml @ 0 mls/hr UD IV 01/04/25 12:30 Docusate Sodium 100 mg BID PO 01/04/25 22:00 01/10/25 10:44 100 MG Lactulose 30 ml DAILY PO 01/04/25 20:00 01/09/25 09:51 30 ML Baclofen 10 mg BID PO 01/04/25 22:00 01/10/25 10:45 10 MG Melatonin 7.5 mg HS PO 01/05/25 22:00 01/09/25 22:00 7.5 MG Venlafaxine HCl 37.5 mg BID PO 01/07/25 22:00 01/10/25 10:46 37.5 MG Vancomycin HCl 100 ml @ 100 mls/hr Q12H IV 01/09/25 12:00 UNV Zinc Acetate/ Diphenhydramine 1 applic Q6HP PRN TOP 01/10/25 12:45 Ceftriaxone Sodium 50 ml @ 100 mls/hr DAILY@09 IV 01/11/25 09:00 laboratory and microbiology Laboratory Tests 01/10/25 06:46 01/09/25 07:09 Test 01/09/25 07:09 Range/Units Serum Glucose 156 H 74-106 mg/dL Microbiology Date/Time Source Procedure Growth Status 01/03/25 15:56 Blood Blood Culture - Final NO GROWTH AFTER 5 DAYS OF INCUBATION. Complete Problem List/Assessment/Plan Problem List/Assessment/Plan Acute kidney injury on Chronic kidney disease IIIb hemodynamic mediated etiology Underlying diabetic nephropathy Hypertension Diabetes type 2 Vertebral diskitis /osteomyelitis Possible spinal abscess Congestive heart failure renal function stable no new recs, will sign off Kidney ultrasound wnl Currently on broad-spectrum IV antibiotics--monitor for worsening of Acute kidney injury on vancomycin. May proceed with PICC line from renal standpoint, planned for prolonged ABX. rec GFR based dosing of all meds based on standard guidelines Spinal surgery has been consulted Plan discussed with: Patient Dietary Evaluation Review Comments: 1) Refer Building Construction Ironworker for diabetes education 2) Monitor PO intake, lab values, weight trend, and I/O Expected Outcomes/Goals: To meet >75% estimated needs Lab values to improve Fu 3-5 days Total Time (mins): 33 CHICHI MEDRANO MD Jan 10, 2025 19:00
--- NOTE | 2025-01-10 19:22 | DVHPN2 ---
Consult Progress Note Objective vital signs Vital Sign Date Time Temp Pulse Resp B/P (MAP) Pulse Ox O2 Delivery O2 Flow Rate FiO2 01/10/25 17:00 98.0 75 17 140/81 (100) 98 98.0 01/10/25 15:45 Room Air 01/10/25 15:45 0 21 Total Intake and Output 01/09/25 01/09/25 01/10/25 15:00 23:00 07:00 Intake Total 50 ml 900 ml 400 ml Output Total 725 ml 700 ml Balance 50 ml 175 ml -300 ml medications Current Medications Medications Dose Ordered Sig/Elham Route Start Time Stop Time Status Last Admin Dose Admin Empaglifozin 10 mg DAILY PO 01/04/25 10:00 01/10/25 10:44 10 MG Metoprolol Tartrate 50 mg BID PO 01/03/25 22:00 01/10/25 10:55 50 MG Albuterol 2.5 mg Q6HPRN PRN NEB 01/03/25 18:00 01/08/25 22:05 2.5 MG Diagnostic Test (Pha) 1 strip ACHS 01/03/25 22:00 01/10/25 17:00 1 STRIP Insulin Human Regular ACHS SC 01/03/25 22:00 01/10/25 12:07 2 UNITS Dextrose 50 ml UD PRN IV 01/03/25 18:00 Acetaminophen/ Hydrocodone Bitart 1 tab Q4HP PRN PO 01/03/25 18:00 01/08/25 00:09 1 TAB Ondansetron HCl 4 mg Q4HP PRN IV 01/03/25 18:00 Acetaminophen 650 mg Q6HP PRN PO 01/03/25 18:00 Morphine Sulfate 2 mg Q4HPRN PRN IV 01/03/25 18:00 Gabapentin 600 mg HS PO 01/03/25 22:00 01/09/25 22:01 600 MG Gabapentin 300 mg DAILY PO 01/04/25 10:00 01/10/25 10:45 300 MG Aspirin 81 mg HS PO 01/03/25 22:00 01/09/25 21:59 81 MG Mirtazapine 30 mg HS PO 01/03/25 22:00 01/09/25 22:01 30 MG Vancomycin HCl 0 ml @ 0 mls/hr UD IV 01/04/25 12:30 Docusate Sodium 100 mg BID PO 01/04/25 22:00 01/10/25 10:44 100 MG Lactulose 30 ml DAILY PO 01/04/25 20:00 01/09/25 09:51 30 ML Baclofen 10 mg BID PO 01/04/25 22:00 01/10/25 10:45 10 MG Melatonin 7.5 mg HS PO 01/05/25 22:00 01/09/25 22:00 7.5 MG Venlafaxine HCl 37.5 mg BID PO 01/07/25 22:00 01/10/25 10:46 37.5 MG Vancomycin HCl 100 ml @ 100 mls/hr Q12H IV 01/09/25 12:00 UNV Zinc Acetate/ Diphenhydramine 1 applic Q6HP PRN TOP 01/10/25 12:45 Ceftriaxone Sodium 50 ml @ 100 mls/hr DAILY@09 IV 01/11/25 09:00 Sodium Chloride 10 ml QSHIFT@,22 IV 01/10/25 22:00 UNV laboratory and microbiology Laboratory Tests 01/10/25 06:46 01/09/25 07:09 Test 01/09/25 07:09 Range/Units Serum Glucose 156 H 74-106 mg/dL Problem List/Assessment/Plan Problem List/Assessment/Plan [facility] IV vancomycin 1.25 g every 24 hrs, dose adjust per pharmacy, goal trough 15-20 IV ceftriaxone 2g every 24 hrs weekly cmp, cbc, sed, crp, vancomycin trough. fax results to [phone] picc line care, home health, saline and heparin per protocol continue until 02/14/25, then remove picc line fu in ID clinic in 6 weeks [phone] Dietary Evaluation Review Comments: 1) Refer Bulk Materials Handling Plant Operator for diabetes education 2) Monitor PO intake, lab values, weight trend, and I/O Expected Outcomes/Goals: To meet >75% estimated needs Lab values to improve Fu 3-5 days RUFINO AMEZQUITA MD Jan 10, 2025 19:22
[2025-01-10] MEDS: LIDOCAINE 1% (LOCAL ANESTH.) PF 5ml SDV ID ONE (19:40)
[2025-01-10] MEDS: SODIUM CHLOR 0.9% PF (SALINE LOCK) 10ML VIAL/SYR IV SCH (21:43)
[2025-01-11] VITALS (13 sets, daily range): BP systolic 105–156; BP diastolic 47–83; PULSE 61–86; RESP 16–20; TEMP 97.3–98.6; O2SAT 93–100
--- NOTE | 2025-01-11 10:07 | DVHPN2 ---
Subjective Patient is seen at bedside today, pain continuing. Reviewed: Care Plan Changes from previous H/P or p: No Changes General: Per HPI Objective Vitals Vital Signs Date Time Temp Pulse Resp B/P (MAP) Pulse Ox O2 Delivery O2 Flow Rate FiO2 01/11/25 09:00 98.3 83 16 156/83 (107) 97 98.3 01/11/25 08:36 Room Air* 0 21 Intake/Output Intake and Output 01/11/25 07:00 Intake Total 1750 ml Output Total 600 ml Balance 1150 ml Intake Oral 1700 ml IV Total 50 ml Output Urine Total 600 ml # Voids 3 Exam GEN: Healthy appearing, well-developed, NAD. HEENT: NC/AT; MMM. CV: RRR, no m/r/g. LUNGS: CTAB, no w/r/c. ABD: Soft, NT/ND, NBS, no masses or organomegaly. EXT: skin Warm, well perfused. no rashes. No clubbing, cyanosis, or edema. NEURO: Ambulating with no limitations. No focal deficits. Patient has spinal tenderness L4-L5 mild tenderness bilaterally Medications Current Medications Medications Dose Ordered Sig/Elham Route Start Time Stop Time Status Last Admin Dose Admin Empaglifozin 10 mg DAILY PO 01/04/25 10:00 01/10/25 10:44 10 MG Metoprolol Tartrate 50 mg BID PO 01/03/25 22:00 01/10/25 21:31 50 MG Albuterol 2.5 mg Q6HPRN PRN NEB 01/03/25 18:00 01/10/25 22:38 2.5 MG Diagnostic Test (Pha) 1 strip ACHS 01/03/25 22:00 01/11/25 06:26 1 STRIP Insulin Human Regular ACHS SC 01/03/25 22:00 01/11/25 06:30 2 UNITS Dextrose 50 ml UD PRN IV 01/03/25 18:00 Acetaminophen/ Hydrocodone Bitart 1 tab Q4HP PRN PO 01/03/25 18:00 01/08/25 00:09 1 TAB Ondansetron HCl 4 mg Q4HP PRN IV 01/03/25 18:00 Acetaminophen 650 mg Q6HP PRN PO 01/03/25 18:00 Morphine Sulfate 2 mg Q4HPRN PRN IV 01/03/25 18:00 Gabapentin 600 mg HS PO 01/03/25 22:00 01/10/25 21:29 600 MG Gabapentin 300 mg DAILY PO 01/04/25 10:00 01/10/25 10:45 300 MG Aspirin 81 mg HS PO 01/03/25 22:00 01/10/25 21:27 81 MG Mirtazapine 30 mg HS PO 01/03/25 22:00 01/10/25 21:29 30 MG Vancomycin HCl 0 ml @ 0 mls/hr UD IV 01/04/25 12:30 Docusate Sodium 100 mg BID PO 01/04/25 22:00 01/10/25 21:27 100 MG Lactulose 30 ml DAILY PO 01/04/25 20:00 01/09/25 09:51 30 ML Baclofen 10 mg BID PO 01/04/25 22:00 01/10/25 21:28 10 MG Melatonin 7.5 mg HS PO 01/05/25 22:00 01/10/25 21:29 7.5 MG Venlafaxine HCl 37.5 mg BID PO 01/07/25 22:00 01/10/25 10:46 37.5 MG Vancomycin HCl 100 ml @ 100 mls/hr Q12H IV 01/09/25 12:00 UNV Zinc Acetate/ Diphenhydramine 1 applic Q6HP PRN TOP 01/10/25 12:45 Ceftriaxone Sodium 50 ml @ 100 mls/hr DAILY@09 IV 01/11/25 09:00 Sodium Chloride 10 ml QSHIFT@10,22 IV 01/10/25 22:00 01/10/25 21:43 10 ML Laboratory Results Laboratory Tests 01/09/25 07:09 Urinalysis Test 01/06/25 01:45 Urine Color Colorless (Yellow) Urine Clarity Clear (Clear) Urine pH 6.0 (5.0-9.0) Urine Specific [place] 1.013 (1.001-1.035) Urine Protein Negative (Negative) Urine Ketones Negative (Negative) Urine Blood Negative /uL (Negative) Urine Nitrite Negative (Negative) Urine Bilirubin Negative (Negative) Urine Urobilinogen Normal mg/dL (Negative) Urine Leukocyte Esterase Negative /uL (Negative) Urine RBC <1 /hpf (0 - 3) Urine Microscopic WBC < 2 /HPF (0-3) Urine Squamous Epithelial Cells Few /hpf (<5) Urine Bacteria None seen /hpf (None Seen) Urine Creatinine 32.99 mg/dL (30.0-125.0) Urine Protein/Creatinine Ratio 0.18 Urine Glucose 4+ mg/dL (Normal) H Urine Total Protein < 6.0 mg/dL (1-14) Microbiology Microbiology Date/Time Source Procedure Growth Status 01/03/25 15:56 Blood Blood Culture - Final NO GROWTH AFTER 5 DAYS OF INCUBATION. Complete Labs and/or images reviewed: Labs reviewed by me, Image(s) reviewed by me Assessment/Plan Assessment/Plan 64-year-old male past medical history of PID diabetic neuropathy, chronic back. Patient presented with chief complaint of lower back pain radiating down to left leg. The pain has been worse for the last 1 month and now started radiating to left leg with the bed affecting his mobility. Patient denies saddle anesthesia, urinary incontinence, bowel incontinence, fever chills, shortness of breath, chest pain, abdominal pain, nausea and vomiting, headache or other complaints. Patient will be admitted for further assessments. 01/04: Patient has spinal epidural abscess, we need to transfer patient for high level of care for spinal Neurosurgery. We are calling spinal ortho to support the case. Until then we will continue vancomycin cefepime. 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 PT needs to work less patient have effort only maximum out of room and back. We will continue pain control. We will add baclofen 10 twice daily, holding off any steroids which could worsen condition/infection. 01/05: Patient doing well no symptoms or red flags of spinal compression, patient walking has feeling in lower legs bilaterally present. Patient worked with PT and doing better today yesterday he will be PT and has significant pain, today not so much. Early communication with spinal ortho suggestive that we can keep patient and Tuesday we can review with spinal ortho. We will also start consult with ID for likely osteomyelitis of the lumbar spine. Continue IV antibiotics. 01/06: Patient is seen today, doing well. Worked with PT even better today. Using wheelchair otherwise. No spinal tenderness, paraspinal tenderness present. Lower extremities still function intact sensation and motor intact no bowel bladder loss. Tomorrow plan for spinal ortho and ID to evaluate patient, with outpatient plan. Patient will likely need long-term antibiotics for osteo myelitis in vertebrae. 01/07: Patient doing well, back pain tolerable, already on gabapentin no need to add Lyrica or Cymbalta. Patient takes Effexor, more reason to not add Cymbalta. We will continue to wait for eval by ID and spinal ortho. Continue IV antibiotics for diskitis vertebral osteomyelitis. 01/08: Spinal ortho things we can try IV antibiotics with help of ID. Waiting for ID consult to see patient. We will start PICC line in anticipation of IV antibiotics 6 weeks. 01/09: Continue patient IV antibiotics. spinal epidural abscess, lower suspicion. Today PICC line will be inserted, we will contact ID for antibiotics we will likely need vancomycin and ceftriaxone 6 weeks, with home health. Also ID to see patient today. Possible DC tomorrow. 01/10: dc plan done. see dc summary. due to insurance issues, discharge cannot be completed but medically cleared. 01/11: patient [facility] but they have not done any significant help, social staff worker will continue to work to develop a plan. until then, continue iv abx ctx 2g daily, vanc 1.25g daily. unable to dc , no clear plan, social and CM working on discharge plan, still remains SNF iv abx vs iv abx. Diagnosis: Vertebral discitis Vertebral osteomyelitis ?Spinal epidural abscess, ruled out aram vmn Chronic back pain with radiculopathy History of sciatica PAD Diabetic neuropathy Plan: MRI concerning for vertebral osteomyelitis and spinal epidural abscess -continue IV antibiotics vancomycin/cefepime Spinal ortho consulted Patient will likely need transfer to high level of care for spinal surgery to deal with epidural abscess Continue prn pain control Baclofen 10 mg twice daily Patient on chronic pain control opiates, we will need bowel regimen we will start docusate 100 mg twice daily, lactulose 30 daily, Holding off steroids Aspirin 81, Jardiance 10, Lasix 40 daily, gabapentin 600 nightly, gabapentin 300 daily, lactulose 30 daily, metoprolol 50 b.i.d., mirtazapine 30 HS, Prn Zofran Diabetic diet Tele Full code Plan discussed with: Patient My Orders Orders - ELIAN LAUREN MD Procedure Category Date Status Time Diphenhdramine-Zinc PHA 01/10/25 In Process Cream (Benadryl Crea 12:45 Ceftriaxone 1gm/50ml PHA 01/11/25 In Process D5w (Rocephin) 09:00 Discharge DISCHARGE 01/10/25 Transmitted 17:19 Nursing Protocol Picc JAYDA 01/10/25 In Process 19:20 Change Dressing Prn [facility] 01/10/25 In Process 19:20 PICC BD 01/10/25 Transmitted 19:20 Sodium Chloride Lock PHA 01/10/25 In Process (Saline Lock Ns) 22:00 Do Not Use Picc For [facility] 01/10/25 In Process Blood Cult 19:20 May Draw Blood From [facility] 01/10/25 In Process Picc 19:20 Ok To Use Picc [facility] 01/10/25 In Process 19:20 Change Picc Dressing [facility] 01/10/25 In Process Q7 Days 19:20 Date of Service: Jan 11, 2025 Billing Provider: ELIAN LAUREN MD Common Visit Codes: [id number] INP/OBS CARE(MOD) ELIAN LAUREN MD Jan 11, 2025 10:07
[2025-01-11] MEDS: cefTRIAXone 1GM/50ML D5W 50 ML IV SCH (11:06)
[2025-01-11] MEDS: cefTRIAXone 1GM/50ML D5W 50 ML IV ONE (17:15)
[2025-01-11] MEDS: VANCOMYCIN 1.5GM/250ML 250 ML IV SCH (19:28)
--- NOTE | 2025-01-11 23:28 | DVHPN2 ---
Consult Progress Note Objective vital signs Vital Sign Date Time Temp Pulse Resp B/P (MAP) Pulse Ox O2 Delivery O2 Flow Rate FiO2 01/11/25 22:47 78 137/76 01/11/25 22:19 20 100 01/11/25 21:00 97.3 97.3 01/11/25 19:18 Room Air 01/11/25 19:18 0 21 Total Intake and Output 01/10/25 01/10/25 01/11/25 15:00 23:00 07:00 Intake Total 550 ml 1200 ml Output Total 600 ml Balance -50 ml 1200 ml medications Current Medications Medications Dose Ordered Sig/Elham Route Start Time Stop Time Status Last Admin Dose Admin Empaglifozin 10 mg DAILY PO 01/04/25 10:00 01/11/25 10:52 10 MG Metoprolol Tartrate 50 mg BID PO 01/03/25 22:00 01/11/25 22:47 50 MG Albuterol 2.5 mg Q6HPRN PRN NEB 01/03/25 18:00 01/11/25 22:15 2.5 MG Diagnostic Test (Pha) 1 strip ACHS 01/03/25 22:00 01/11/25 22:54 1 STRIP Insulin Human Regular ACHS SC 01/03/25 22:00 01/11/25 22:55 2 UNITS Dextrose 50 ml UD PRN IV 01/03/25 18:00 Acetaminophen/ Hydrocodone Bitart 1 tab Q4HP PRN PO 01/03/25 18:00 01/08/25 00:09 1 TAB Ondansetron HCl 4 mg Q4HP PRN IV 01/03/25 18:00 Acetaminophen 650 mg Q6HP PRN PO 01/03/25 18:00 Morphine Sulfate 2 mg Q4HPRN PRN IV 01/03/25 18:00 Gabapentin 600 mg HS PO 01/03/25 22:00 01/11/25 22:44 600 MG Gabapentin 300 mg DAILY PO 01/04/25 10:00 01/11/25 10:51 300 MG Aspirin 81 mg HS PO 01/03/25 22:00 01/11/25 22:47 81 MG Mirtazapine 30 mg HS PO 01/03/25 22:00 01/11/25 22:43 30 MG Vancomycin HCl 0 ml @ 0 mls/hr UD IV 01/04/25 12:30 Docusate Sodium 100 mg BID PO 01/04/25 22:00 01/11/25 22:43 100 MG Lactulose 30 ml DAILY PO 01/04/25 20:00 01/09/25 09:51 30 ML Baclofen 10 mg BID PO 01/04/25 22:00 01/11/25 22:47 10 MG Melatonin 7.5 mg HS PO 01/05/25 22:00 01/11/25 22:44 7.5 MG Venlafaxine HCl 37.5 mg BID PO 01/07/25 22:00 01/11/25 10:51 37.5 MG Vancomycin HCl 100 ml @ 100 mls/hr Q12H IV 01/09/25 12:00 UNV Zinc Acetate/ Diphenhydramine 1 applic Q6HP PRN TOP 01/10/25 12:45 Sodium Chloride 10 ml QSHIFT@10,22 IV 01/10/25 22:00 01/11/25 22:59 10 ML Vancomycin HCl 250 ml @ 166.667 mls/hr DAILY@1700 IV 01/11/25 17:00 01/11/25 19:28 166.667 MLS/HR Ceftriaxone Sodium/Dextrose 50 ml @ 50 mls/hr DAILY@0900 IV 01/12/25 09:00 laboratory and microbiology Laboratory Tests 01/11/25 08:27 01/09/25 07:09 Test 01/09/25 07:09 Range/Units Serum Glucose 156 H 74-106 mg/dL Problem List/Assessment/Plan Problem List/Assessment/Plan [facility] IV vancomycin 1.25 g every 24 hrs, dose adjust per pharmacy, goal trough 15-20 IV ceftriaxone 2g every 24 hrs weekly cmp, cbc, sed, crp, vancomycin trough. fax results to [phone] picc line care, home health, saline and heparin per protocol continue until 02/14/25, then remove picc line fu in ID clinic in 6 weeks [id number] Dietary Evaluation Review Comments: 1) Refer Encoding Clerk for diabetes education 2) Monitor PO intake, lab values, weight trend, and I/O Expected Outcomes/Goals: To meet >75% estimated needs Lab values to improve Fu 3-5 days RUFINO AMEZQUITA MD Jan 11, 2025 23:28
[2025-01-12] VITALS (8 sets, daily range): BP systolic 115–137; BP diastolic 58–81; PULSE 61–91; RESP 16–20; TEMP 96.9–98.7; O2SAT 94–100
[2025-01-12] MEDS: cefTRIAXone 2GM/50ML D5W 50 ML IV SCH (11:28)
--- NOTE | 2025-01-12 19:34 | DVHPN2 ---
[facility]ive [facility] Patient is seen and evaluated discussed with the nurse. Patient without any complaints. He wants to go home now to long term facility and wants to have IV antibiotics with home health. Reviewed: Care Plan Changes from previous H/P or p: No Changes General: Per HPI Objective Vitals Vital Signs Date Time Temp Pulse Resp B/P (MAP) Pulse Ox O2 Delivery O2 Flow Rate FiO2 01/12/25 16:39 97.9 77 18 137/73 (94) 95 97.9 01/12/25 08:00 Room Air* 0 21 Intake/Output Intake and Output 01/12/25 07:00 Intake Total 1790 ml Balance 1790 ml Intake Oral 1540 ml IV Total 250 ml # Voids 8 Exam Alert awake oriented x3. In wheelchair without any complaints. HEENT neck supple no JVD. Heart regular rate and rhythm S1-S2. Lungs fair air movement without rales wheezes. Abdomen soft nontender positive bowel sounds. Extremities no edema positive pulses. Medications Current Medications Medications Dose Ordered Sig/Elham Route Start Time Stop Time Status Last Admin Dose Admin Empaglifozin 10 mg DAILY PO 01/04/25 10:00 01/12/25 11:25 10 MG Metoprolol Tartrate 50 mg BID PO 01/03/25 22:00 01/12/25 11:27 50 MG Albuterol 2.5 mg Q6HPRN PRN NEB 01/03/25 18:00 01/11/25 22:15 2.5 MG Diagnostic Test (Pha) 1 strip ACHS 01/03/25 22:00 01/12/25 17:32 1 STRIP Insulin Human Regular ACHS SC 01/03/25 22:00 01/12/25 12:45 3 UNITS Dextrose 50 ml UD PRN IV 01/03/25 18:00 Acetaminophen/ Hydrocodone Bitart 1 tab Q4HP PRN PO 01/03/25 18:00 01/08/25 00:09 1 TAB Ondansetron HCl 4 mg Q4HP PRN IV 01/03/25 18:00 Acetaminophen 650 mg Q6HP PRN PO 01/03/25 18:00 Morphine Sulfate 2 mg Q4HPRN PRN IV 01/03/25 18:00 Gabapentin 600 mg HS PO 01/03/25 22:00 01/11/25 22:44 600 MG Gabapentin 300 mg DAILY PO 01/04/25 10:00 01/12/25 11:25 300 MG Aspirin 81 mg HS PO 01/03/25 22:00 01/11/25 22:47 81 MG Mirtazapine 30 mg HS PO 01/03/25 22:00 01/11/25 22:43 30 MG Vancomycin HCl 0 ml @ 0 mls/hr UD IV 01/04/25 12:30 Docusate Sodium 100 mg BID PO 01/04/25 22:00 01/12/25 11:24 100 MG Lactulose 30 ml DAILY PO 01/04/25 20:00 01/09/25 09:51 30 ML Baclofen 10 mg BID PO 01/04/25 22:00 01/12/25 11:24 10 MG Melatonin 7.5 mg HS PO 01/05/25 22:00 01/11/25 22:44 7.5 MG Venlafaxine HCl 37.5 mg BID PO 01/07/25 22:00 01/12/25 11:25 37.5 MG Vancomycin HCl 100 ml @ 100 mls/hr Q12H IV 01/09/25 12:00 UNV Zinc Acetate/ Diphenhydramine 1 applic Q6HP PRN TOP 01/10/25 12:45 Sodium Chloride 10 ml QSHIFT@10,22 IV 01/10/25 22:00 01/12/25 11:26 10 ML Vancomycin HCl 250 ml @ 166.667 mls/hr DAILY@1700 IV 01/11/25 17:00 01/12/25 17:32 166.667 MLS/HR Ceftriaxone Sodium/Dextrose 50 ml @ 50 mls/hr DAILY@0900 IV 01/12/25 09:00 01/12/25 11:28 50 MLS/HR Laboratory Results Laboratory Tests 01/09/25 07:09 01/12/25 10:23 Urinalysis Test 01/06/25 01:45 Urine Color Colorless (Yellow) Urine Clarity Clear (Clear) Urine pH 6.0 (5.0-9.0) Urine Specific [place] 1.013 (1.001-1.035) Urine Protein Negative (Negative) Urine Ketones Negative (Negative) Urine Blood Negative /uL (Negative) Urine Nitrite Negative (Negative) Urine Bilirubin Negative (Negative) Urine Urobilinogen Normal mg/dL (Negative) Urine Leukocyte Esterase Negative /uL (Negative) Urine RBC <1 /hpf (0 - 3) Urine Microscopic WBC < 2 /HPF (0-3) Urine Squamous Epithelial Cells Few /hpf (<5) Urine Bacteria None seen /hpf (None Seen) Urine Creatinine 32.99 mg/dL (30.0-125.0) Urine Protein/Creatinine Ratio 0.18 Urine Glucose 4+ mg/dL (Normal) H Urine Total Protein < 6.0 mg/dL (1-14) Microbiology Microbiology Date/Time Source Procedure Growth Status 01/03/25 15:56 Blood Blood Culture - Final NO GROWTH AFTER 5 DAYS OF INCUBATION. Complete Assessment/Plan Assessment/Plan Vertebral discitis Vertebral osteomyelitis ?Spinal epidural abscess, ruled out aram vmn Chronic back pain with radiculopathy History of sciatica PAD Diabetic neuropathy Patient is on IV antibiotics and supposed to go to long term facility with a PICC line. However now he does not want to go to skilled and wants to go home. Patient wants home health to be arranged. Therefore we will have social Service to look into home health services and continue current antibiotics and discharge him home. Discussed with the patient and nurse. Plan discussed with: Patient, Other My Orders Orders - GWYN ALVAREZ MD Procedure Category Date Status Time * Medical Office Technology Instructor CONS 01/12/25 Transmitted Consult Date of Service: Jan 12, 2025 Billing Provider: GWYN ALVAREZ MD Common Visit Codes: [id number] INP/OBS CARE(MOD) GWYN ALVAREZ MD Jan 12, 2025 19:34
[2025-01-13] VITALS (9 sets, daily range): BP systolic 110–131; BP diastolic 56–91; PULSE 66–100; RESP 16–18; TEMP 97–98.9; O2SAT 94–100
--- NOTE | 2025-01-13 14:47 | DVHPN2 ---
Consult Progress Note Objective vital signs Vital Sign Date Time Temp Pulse Resp B/P (MAP) Pulse Ox O2 Delivery O2 Flow Rate FiO2 01/13/25 13:00 98.1 89 17 123/73 (90) 97 98.1 01/12/25 20:00 Room Air* 0 21 Total Intake and Output 01/12/25 01/12/25 01/13/25 15:00 23:00 07:00 Intake Total 50 ml 1400 ml 300 ml Output Total 120 ml Balance 50 ml 1400 ml 180 ml medications Current Medications Medications Dose Ordered Sig/Elham Route Start Time Stop Time Status Last Admin Dose Admin Empaglifozin 10 mg DAILY PO 01/04/25 10:00 01/13/25 10:29 10 MG Metoprolol Tartrate 50 mg BID PO 01/03/25 22:00 01/13/25 10:29 50 MG Albuterol 2.5 mg Q6HPRN PRN NEB 01/03/25 18:00 01/12/25 19:53 2.5 MG Diagnostic Test (Pha) 1 strip ACHS 01/03/25 22:00 01/13/25 11:40 1 STRIP Insulin Human Regular ACHS SC 01/03/25 22:00 01/13/25 11:55 3 UNITS Dextrose 50 ml UD PRN IV 01/03/25 18:00 Ondansetron HCl 4 mg Q4HP PRN IV 01/03/25 18:00 Acetaminophen 650 mg Q6HP PRN PO 01/03/25 18:00 Gabapentin 600 mg HS PO 01/03/25 22:00 01/12/25 22:57 600 MG Gabapentin 300 mg DAILY PO 01/04/25 10:00 01/13/25 10:28 300 MG Aspirin 81 mg HS PO 01/03/25 22:00 01/12/25 22:52 81 MG Mirtazapine 30 mg HS PO 01/03/25 22:00 01/12/25 22:57 30 MG Vancomycin HCl 0 ml @ 0 mls/hr UD IV 01/04/25 12:30 Docusate Sodium 100 mg BID PO 01/04/25 22:00 01/13/25 10:29 100 MG Lactulose 30 ml DAILY PO 01/04/25 20:00 01/13/25 10:37 30 ML Baclofen 10 mg BID PO 01/04/25 22:00 01/13/25 10:29 10 MG Melatonin 7.5 mg HS PO 01/05/25 22:00 01/12/25 22:56 7.5 MG Venlafaxine HCl 37.5 mg BID PO 01/07/25 22:00 01/13/25 10:28 37.5 MG Vancomycin HCl 100 ml @ 100 mls/hr Q12H IV 01/09/25 12:00 UNV Zinc Acetate/ Diphenhydramine 1 applic Q6HP PRN TOP 01/10/25 12:45 Sodium Chloride 10 ml QSHIFT@10,22 IV 01/10/25 22:00 01/13/25 10:30 10 ML Vancomycin HCl 250 ml @ 166.667 mls/hr DAILY@1700 IV 01/11/25 17:00 01/12/25 17:32 166.667 MLS/HR Ceftriaxone Sodium/Dextrose 50 ml @ 50 mls/hr DAILY@0900 IV 01/12/25 09:00 01/13/25 10:30 50 MLS/HR laboratory and microbiology Laboratory Tests 01/13/25 05:41 01/09/25 07:09 Test 01/09/25 07:09 Range/Units Serum Glucose 156 H 74-106 mg/dL Problem List/Assessment/Plan Problem List/Assessment/Plan [facility] IV vancomycin 1.25 g every 24 hrs, dose adjust per pharmacy, goal trough 15-20 IV ceftriaxone 2g every 24 hrs weekly cmp, cbc, sed, crp, vancomycin trough. fax results to [phone] picc line care, home health, saline and heparin per protocol continue until 02/14/25, then remove picc line fu in ID clinic in 6 weeks [phone] Dietary Evaluation Review Comments: 1) Refer Broadcast Operations Engineer for diabetes education 2) Monitor PO intake, lab values, weight trend, and I/O Expected Outcomes/Goals: To meet >75% estimated needs Lab values to improve Fu 3-5 days RUFINO AMEZQUITA MD Jan 13, 2025 14:47
[2025-01-13] MEDS: FUROSEMIDE 40 MG TAB PO SCH (16:45)
--- NOTE | 2025-01-13 17:14 | DVHPN2 ---
Subjective [facility] for [facility]. PATIENT APPARENTLY WAS ON HOSPICE AND HOME HEALTH IS REQUESTING HOSPICE revocation so that they can arrange home health with IV antibiotics. Reviewed: Care Plan Changes from previous H/P or p: No Changes General: Per HPI Objective Vitals Vital Signs Date Time Temp Pulse Resp B/P (MAP) Pulse Ox O2 Delivery O2 Flow Rate FiO2 01/13/25 13:00 98.1 89 17 123/73 (90) 97 98.1 01/12/25 20:00 Room Air* 0 21 Intake/Output Intake and Output 01/13/25 07:00 Intake Total 1750 ml Output Total 120 ml Balance 1630 ml Intake Oral 1450 ml IV Total 300 ml Stool Total 120 ml # Voids 4 # Bowel Movements 1 Exam Alert awake oriented x3. In wheelchair without any complaints. HEENT neck supple no JVD. Heart regular rate and rhythm S1-S2. Lungs fair air movement without rales wheezes. Abdomen soft nontender positive bowel sounds. Extremities no edema positive pulses. Medications Current Medications Medications Dose Ordered Sig/Elham Route Start Time Stop Time Status Last Admin Dose Admin Empaglifozin 10 mg DAILY PO 01/04/25 10:00 01/13/25 10:29 10 MG Metoprolol Tartrate 50 mg BID PO 01/03/25 22:00 01/13/25 10:29 50 MG Albuterol 2.5 mg Q6HPRN PRN NEB 01/03/25 18:00 01/12/25 19:53 2.5 MG Diagnostic Test (Pha) 1 strip ACHS 01/03/25 22:00 01/13/25 16:18 1 STRIP Insulin Human Regular ACHS SC 01/03/25 22:00 01/13/25 11:55 3 UNITS Dextrose 50 ml UD PRN IV 01/03/25 18:00 Ondansetron HCl 4 mg Q4HP PRN IV 01/03/25 18:00 Acetaminophen 650 mg Q6HP PRN PO 01/03/25 18:00 Gabapentin 600 mg HS PO 01/03/25 22:00 01/12/25 22:57 600 MG Gabapentin 300 mg DAILY PO 01/04/25 10:00 01/13/25 10:28 300 MG Aspirin 81 mg HS PO 01/03/25 22:00 01/12/25 22:52 81 MG Mirtazapine 30 mg HS PO 01/03/25 22:00 01/12/25 22:57 30 MG Vancomycin HCl 0 ml @ 0 mls/hr UD IV 01/04/25 12:30 Docusate Sodium 100 mg BID PO 01/04/25 22:00 01/13/25 10:29 100 MG Lactulose 30 ml DAILY PO 01/04/25 20:00 01/13/25 10:37 30 ML Baclofen 10 mg BID PO 01/04/25 22:00 01/13/25 10:29 10 MG Melatonin 7.5 mg HS PO 01/05/25 22:00 01/12/25 22:56 7.5 MG Venlafaxine HCl 37.5 mg BID PO 01/07/25 22:00 01/13/25 10:28 37.5 MG Vancomycin HCl 100 ml @ 100 mls/hr Q12H IV 01/09/25 12:00 UNV Zinc Acetate/ Diphenhydramine 1 applic Q6HP PRN TOP 01/10/25 12:45 Sodium Chloride 10 ml QSHIFT@10,22 IV 01/10/25 22:00 01/13/25 10:30 10 ML Vancomycin HCl 250 ml @ 166.667 mls/hr DAILY@1700 IV 01/11/25 17:00 01/13/25 17:08 166.667 MLS/HR Ceftriaxone Sodium/Dextrose 50 ml @ 50 mls/hr DAILY@0900 IV 01/12/25 09:00 01/13/25 10:30 50 MLS/HR Furosemide 40 mg DAILY PO 01/13/25 16:45 Laboratory Results Laboratory Tests 01/09/25 07:09 01/13/25 05:41 Urinalysis Test 01/06/25 01:45 Urine Color Colorless (Yellow) Urine Clarity Clear (Clear) Urine pH 6.0 (5.0-9.0) Urine Specific [place] 1.013 (1.001-1.035) Urine Protein Negative (Negative) Urine Ketones Negative (Negative) Urine Blood Negative /uL (Negative) Urine Nitrite Negative (Negative) Urine Bilirubin Negative (Negative) Urine Urobilinogen Normal mg/dL (Negative) Urine Leukocyte Esterase Negative /uL (Negative) Urine RBC <1 /hpf (0 - 3) Urine Microscopic WBC < 2 /HPF (0-3) Urine Squamous Epithelial Cells Few /hpf (<5) Urine Bacteria None seen /hpf (None Seen) Urine Creatinine 32.99 mg/dL (30.0-125.0) Urine Protein/Creatinine Ratio 0.18 Urine Glucose 4+ mg/dL (Normal) H Urine Total Protein < 6.0 mg/dL (1-14) Microbiology Microbiology Date/Time Source Procedure Growth Status 01/03/25 15:56 Blood Blood Culture - Final NO GROWTH AFTER 5 DAYS OF INCUBATION. Complete Assessment/Plan Assessment/Plan Vertebral discitis Vertebral osteomyelitis ?Spinal epidural abscess, ruled out aram vmn Chronic back pain with radiculopathy History of sciatica PAD Diabetic neuropathy Patient is on IV antibiotics and supposed to go to nursing home facility with a PICC line. However now he does not want to go to skilled and wants to go home. Patient wants home health to be arranged. Try to get hold of hospice to see if they can send a row vacation letter. Discussed with the nurse. Once this is done he can be discharged home hopefully tomorrow with IV antibiotics. Plan discussed with: Patient, Other My Orders Orders - GWYN ALVAREZ MD Procedure Category Date Status Time Lt Upper Dvt US 01/13/25 Logged 16:36 Furosemide Tablet PHA 01/13/25 In Process (Lasix Tablet) 16:45 * Food Products Sales Representative CONS 01/13/25 Transmitted Consult Date of Service: Jan 13, 2025 Billing Provider: GWYN ALVAREZ MD Common Visit Codes: [id number] INP/OBS CARE(MOD) GWYN ALVAREZ MD Jan 13, 2025 17:14
--- NOTE | 2025-01-13 17:57 | DVH ---
Upper Extremity Venous Duplex Clinical History: redness/ swelling at left forearm due to iv Comparison: None Technique: Duplex Doppler evaluation of the venous system of the RIGHT lower neck and upper extremity including color Doppler and spectral/pulsed waveform analysis was performed. Findings: The internal jugular vein demonstrates appropriate compressibility and waveform variability. The subclavian vein is patent on color Doppler evaluation without intraluminal thrombus and demonstra roby waveform variability. The visualized portion of the brachiocephalic vein is patent on color Doppler evaluation without intr aluminal thrombus and demonstrates waveform variability. The axillary vein demonstrates appropriate compressibility and waveform variability. The brachial veins demonstrate appropriate compressibility and patency on Doppler evaluation. The basilic vein demonstrates appropriate compressibility and patency on Doppler evaluation. The cephalic vein demonstrates appropriate compressibility and patency on Doppler evaluation. Impression: 1. No venous thrombus identified in the LEFT upper extremity vessels evaluated above. 2. If clinical concern/symptoms persist or worsen, short-interval follow-up study is suggested.
[2025-01-14] VITALS (9 sets, daily range): BP systolic 109–124; BP diastolic 55–84; PULSE 68–83; RESP 16–19; TEMP 98.1–98.8; O2SAT 96–98
--- NOTE | 2025-01-14 10:26 | DVHPN2 ---
Subjective Patient is seen at bedside today, pain continuing. Reviewed: Care Plan Changes from previous H/P or p: No Changes General: Per HPI Objective Vitals Vital Signs Date Time Temp Pulse Resp B/P (MAP) Pulse Ox O2 Delivery O2 Flow Rate FiO2 01/14/25 09:31 82 126/74 01/14/25 09:00 98.1 16 97 98.1 01/14/25 08:00 Room Air* 0 21 Intake/Output Intake and Output 01/14/25 07:00 Intake Total 1400 ml Output Total 150 ml Balance 1250 ml Intake Oral 1400 ml Output Urine Total 150 ml # Voids 3 # Bowel Movements 1 Exam GEN: Healthy appearing, well-developed, NAD. HEENT: NC/AT; MMM. CV: RRR, no m/r/g. LUNGS: CTAB, no w/r/c. ABD: Soft, NT/ND, NBS, no masses or organomegaly. EXT: skin Warm, well perfused. no rashes. No clubbing, cyanosis, or edema. NEURO: Ambulating with no limitations. No focal deficits. Patient has spinal tenderness L4-L5 mild tenderness bilaterally Medications Current Medications Medications Dose Ordered Sig/Elham Route Start Time Stop Time Status Last Admin Dose Admin Empaglifozin 10 mg DAILY PO 01/04/25 10:00 01/14/25 09:28 10 MG Metoprolol Tartrate 50 mg BID PO 01/03/25 22:00 01/14/25 09:31 50 MG Albuterol 2.5 mg Q6HPRN PRN NEB 01/03/25 18:00 01/13/25 22:34 2.5 MG Diagnostic Test (Pha) 1 strip ACHS 01/03/25 22:00 01/14/25 06:13 1 STRIP Insulin Human Regular ACHS SC 01/03/25 22:00 01/13/25 21:35 6 UNITS Dextrose 50 ml UD PRN IV 01/03/25 18:00 Ondansetron HCl 4 mg Q4HP PRN IV 01/03/25 18:00 Acetaminophen 650 mg Q6HP PRN PO 01/03/25 18:00 Gabapentin 600 mg HS PO 01/03/25 22:00 01/13/25 21:31 600 MG Gabapentin 300 mg DAILY PO 01/04/25 10:00 01/14/25 09:28 300 MG Aspirin 81 mg HS PO 01/03/25 22:00 01/13/25 21:30 81 MG Mirtazapine 30 mg HS PO 01/03/25 22:00 01/13/25 21:31 30 MG Vancomycin HCl 0 ml @ 0 mls/hr UD IV 01/04/25 12:30 Docusate Sodium 100 mg BID PO 01/04/25 22:00 01/14/25 09:28 100 MG Lactulose 30 ml DAILY PO 01/04/25 20:00 01/13/25 10:37 30 ML Baclofen 10 mg BID PO 01/04/25 22:00 01/14/25 09:28 10 MG Melatonin 7.5 mg HS PO 01/05/25 22:00 01/13/25 21:27 7.5 MG Venlafaxine HCl 37.5 mg BID PO 01/07/25 22:00 01/14/25 09:29 37.5 MG Vancomycin HCl 100 ml @ 100 mls/hr Q12H IV 01/09/25 12:00 UNV Zinc Acetate/ Diphenhydramine 1 applic Q6HP PRN TOP 01/10/25 12:45 Sodium Chloride 10 ml QSHIFT@10,22 IV 01/10/25 22:00 01/14/25 09:33 10 ML Vancomycin HCl 250 ml @ 166.667 mls/hr DAILY@1700 IV 01/11/25 17:00 01/13/25 17:08 166.667 MLS/HR Ceftriaxone Sodium/Dextrose 50 ml @ 50 mls/hr DAILY@0900 IV 01/12/25 09:00 01/14/25 09:33 50 MLS/HR Furosemide 40 mg DAILY PO 01/13/25 16:45 01/14/25 09:29 40 MG Laboratory Results Laboratory Tests 01/09/25 07:09 01/13/25 05:41 Urinalysis Test 01/06/25 01:45 Urine Color Colorless (Yellow) Urine Clarity Clear (Clear) Urine pH 6.0 (5.0-9.0) Urine Specific [place] 1.013 (1.001-1.035) Urine Protein Negative (Negative) Urine Ketones Negative (Negative) Urine Blood Negative /uL (Negative) Urine Nitrite Negative (Negative) Urine Bilirubin Negative (Negative) Urine Urobilinogen Normal mg/dL (Negative) Urine Leukocyte Esterase Negative /uL (Negative) Urine RBC <1 /hpf (0 - 3) Urine Microscopic WBC < 2 /HPF (0-3) Urine Squamous Epithelial Cells Few /hpf (<5) Urine Bacteria None seen /hpf (None Seen) Urine Creatinine 32.99 mg/dL (30.0-125.0) Urine Protein/Creatinine Ratio 0.18 Urine Glucose 4+ mg/dL (Normal) H Urine Total Protein < 6.0 mg/dL (1-14) Microbiology Microbiology Date/Time Source Procedure Growth Status 01/03/25 15:56 Blood Blood Culture - Final NO GROWTH AFTER 5 DAYS OF INCUBATION. Complete Labs and/or images reviewed: Labs reviewed by me, Image(s) reviewed by me Assessment/Plan Assessment/Plan 64-year-old male past medical history of PID diabetic neuropathy, chronic back. Patient presented with chief complaint of lower back pain radiating down to left leg. The pain has been worse for the last 1 month and now started radiating to left leg with the bed affecting his mobility. Patient denies saddle anesthesia, urinary incontinence, bowel incontinence, fever chills, shortness of breath, chest pain, abdominal pain, nausea and vomiting, headache or other complaints. Patient will be admitted for further assessments. 01/04: Patient has spinal epidural abscess, we need to transfer patient for high level of care for spinal Neurosurgery. We are calling spinal ortho to support the case. Until then we will continue vancomycin cefepime. 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 PT needs to work less patient have effort only maximum out of room and back. We will continue pain control. We will add baclofen 10 twice daily, holding off any steroids which could worsen condition/infection. 01/05: Patient doing well no symptoms or red flags of spinal compression, patient walking has feeling in lower legs bilaterally present. Patient worked with PT and doing better today yesterday he will be PT and has significant pain, today not so much. Early communication with spinal ortho suggestive that we can keep patient and Tuesday we can review with spinal ortho. We will also start consult with ID for likely osteomyelitis of the lumbar spine. Continue IV antibiotics. 01/06: Patient is seen today, doing well. Worked with PT even better today. Using wheelchair otherwise. No spinal tenderness, paraspinal tenderness present. Lower extremities still function intact sensation and motor intact no bowel bladder loss. Tomorrow plan for spinal ortho and ID to evaluate patient, with outpatient plan. Patient will likely need long-term antibiotics for osteo myelitis in vertebrae. 01/07: Patient doing well, back pain tolerable, already on gabapentin no need to add Lyrica or Cymbalta. Patient takes Effexor, more reason to not add Cymbalta. We will continue to wait for eval by ID and spinal ortho. Continue IV antibiotics for diskitis vertebral osteomyelitis. 01/08: Spinal ortho things we can try IV antibiotics with help of ID. Waiting for ID consult to see patient. We will start PICC line in anticipation of IV antibiotics 6 weeks. 01/09: Continue patient IV antibiotics. spinal epidural abscess, lower suspicion. Today PICC line will be inserted, we will contact ID for antibiotics we will likely need vancomycin and ceftriaxone 6 weeks, with home health. Also ID to see patient today. Possible DC tomorrow. 01/10: dc plan done. see dc summary. due to insurance issues, discharge cannot be completed but medically cleared. 01/11: patient has tried contacting [facility] but they have not done any significant help, manager social media will continue to work to develop a plan. until then, continue iv abx ctx 2g daily, vanc 1.25g daily. unable to dc , no clear plan, social and CM working on discharge plan, still remains SNF iv abx vs iv abx. 01/14: No significant over the weekend. Patient denied SNF. As the SNF available is [facility], at this point this is the only safe discharge plan which patient will have to contest. We will continue with primary plan of discharge to SNF for IV antibiotics today. Diagnosis: Vertebral discitis Vertebral osteomyelitis ?Spinal epidural abscess, ruled out aram vmn Chronic back pain with radiculopathy History of sciatica PAD Diabetic neuropathy Plan: MRI concerning for vertebral osteomyelitis and spinal epidural abscess -continue IV antibiotics vancomycin/cefepime Spinal ortho consulted Patient will likely need transfer to high level of care for spinal surgery to deal with epidural abscess Continue prn pain control Baclofen 10 mg twice daily Patient on chronic pain control opiates, we will need bowel regimen we will start docusate 100 mg twice daily, lactulose 30 daily, Holding off steroids Aspirin 81, Jardiance 10, Lasix 40 daily, gabapentin 600 nightly, gabapentin 300 daily, lactulose 30 daily, metoprolol 50 b.i.d., mirtazapine 30 HS, Prn Zofran Diabetic diet Tele Full code Plan discussed with: Patient My Orders Orders - ELIAN LAUREN MD Procedure Category Date Status Time Complete Blood Count LAB 01/14/25 Logged 04:00 Creatinine LAB 01/14/25 Logged 04:00 Date of Service: Jan 14, 2025 Billing Provider: ELIAN LAUREN MD Common Visit Codes: [id number] INP/OBS CARE(MOD) ELIAN LAUREN MD Jan 14, 2025 10:26
[2025-01-14 12:51] LABS: Hematocrit 38.0 % (41.0-53.0); Hemoglobin 12.5 g/dL (13.5-17.5); Mean Corpuscular Hemoglobin 30.4 pg (28.0-32.0); Mean Corpuscular Volume 92.4 fL (80.0-100.0); Nucleated Red Blood Cells % 0.0 %
[2025-01-15] VITALS (8 sets, daily range): BP systolic 114–146; BP diastolic 56–76; PULSE 64–85; RESP 16–18; TEMP 36.9; O2SAT 96–99
--- NOTE | 2025-01-15 11:59 | DVHPN2 ---
Subjective Patient is seen at bedside today, pain continuing. Reviewed: Care Plan Changes from previous H/P or p: No Changes General: Per HPI Objective Vitals Vital Signs Date Time Temp Pulse Resp B/P (MAP) Pulse Ox O2 Delivery O2 Flow Rate FiO2 01/15/25 09:45 137/76 01/15/25 09:45 85 01/15/25 09:10 97 Room Air* 0 21 01/15/25 09:00 98.3 18 98.3 Intake/Output Intake and Output 01/15/25 07:00 Intake Total 1650 ml Output Total 1000 ml Balance 650 ml Intake Oral 1600 ml IV Total 50 ml Output Urine Total 1000 ml # Voids 5 # Bowel Movements 2 Exam GEN: Healthy appearing, well-developed, NAD. HEENT: NC/AT; MMM. CV: RRR, no m/r/g. LUNGS: CTAB, no w/r/c. ABD: Soft, NT/ND, NBS, no masses or organomegaly. EXT: skin Warm, well perfused. no rashes. No clubbing, cyanosis, or edema. NEURO: Ambulating with no limitations. No focal deficits. Patient has spinal tenderness L4-L5 mild tenderness bilaterally Medications Current Medications Medications Dose Ordered Sig/Elham Route Start Time Stop Time Status Last Admin Dose Admin Empaglifozin 10 mg DAILY PO 01/04/25 10:00 01/15/25 09:44 10 MG Metoprolol Tartrate 50 mg BID PO 01/03/25 22:00 01/15/25 09:45 50 MG Albuterol 2.5 mg Q6HPRN PRN NEB 01/03/25 18:00 01/13/25 22:34 2.5 MG Diagnostic Test (Pha) 1 strip ACHS 01/03/25 22:00 01/15/25 11:27 1 STRIP Insulin Human Regular ACHS SC 01/03/25 22:00 01/15/25 11:22 2 UNITS Dextrose 50 ml UD PRN IV 01/03/25 18:00 Ondansetron HCl 4 mg Q4HP PRN IV 01/03/25 18:00 Acetaminophen 650 mg Q6HP PRN PO 01/03/25 18:00 Gabapentin 600 mg HS PO 01/03/25 22:00 01/14/25 21:07 600 MG Gabapentin 300 mg DAILY PO 01/04/25 10:00 01/15/25 09:44 300 MG Aspirin 81 mg HS PO 01/03/25 22:00 01/14/25 21:07 81 MG Mirtazapine 30 mg HS PO 01/03/25 22:00 01/14/25 21:08 30 MG Vancomycin HCl 0 ml @ 0 mls/hr UD IV 01/04/25 12:30 Docusate Sodium 100 mg BID PO 01/04/25 22:00 01/15/25 09:45 100 MG Lactulose 30 ml DAILY PO 01/04/25 20:00 01/13/25 10:37 30 ML Baclofen 10 mg BID PO 01/04/25 22:00 01/15/25 09:44 10 MG Melatonin 7.5 mg HS PO 01/05/25 22:00 01/14/25 21:07 7.5 MG Venlafaxine HCl 37.5 mg BID PO 01/07/25 22:00 01/15/25 09:55 37.5 MG Vancomycin HCl 100 ml @ 100 mls/hr Q12H IV 01/09/25 12:00 UNV Zinc Acetate/ Diphenhydramine 1 applic Q6HP PRN TOP 01/10/25 12:45 Sodium Chloride 10 ml QSHIFT@10,22 IV 01/10/25 22:00 01/15/25 09:44 10 ML Vancomycin HCl 250 ml @ 166.667 mls/hr DAILY@1700 IV 01/11/25 17:00 01/14/25 17:33 166.667 MLS/HR Ceftriaxone Sodium/Dextrose 50 ml @ 50 mls/hr DAILY@0900 IV 01/12/25 09:00 01/15/25 09:48 50 MLS/HR Furosemide 40 mg DAILY PO 01/13/25 16:45 01/15/25 09:45 40 MG Laboratory Results Laboratory Tests 01/09/25 07:09 01/14/25 12:20 01/15/25 06:53 Urinalysis Test 01/06/25 01:45 Urine Color Colorless (Yellow) Urine Clarity Clear (Clear) Urine pH 6.0 (5.0-9.0) Urine Specific [place] 1.013 (1.001-1.035) Urine Protein Negative (Negative) Urine Ketones Negative (Negative) Urine Blood Negative /uL (Negative) Urine Nitrite Negative (Negative) Urine Bilirubin Negative (Negative) Urine Urobilinogen Normal mg/dL (Negative) Urine Leukocyte Esterase Negative /uL (Negative) Urine RBC <1 /hpf (0 - 3) Urine Microscopic WBC < 2 /HPF (0-3) Urine Squamous Epithelial Cells Few /hpf (<5) Urine Bacteria None seen /hpf (None Seen) Urine Creatinine 32.99 mg/dL (30.0-125.0) Urine Protein/Creatinine Ratio 0.18 Urine Glucose 4+ mg/dL (Normal) H Urine Total Protein < 6.0 mg/dL (1-14) Microbiology Microbiology Date/Time Source Procedure Growth Status 01/03/25 15:56 Blood Blood Culture - Final NO GROWTH AFTER 5 DAYS OF INCUBATION. Complete Labs and/or images reviewed: Labs reviewed by me, Image(s) reviewed by me Assessment/Plan Assessment/Plan 64-year-old male past medical history of PID diabetic neuropathy, chronic back. Patient presented with chief complaint of lower back pain radiating down to left leg. The pain has been worse for the last 1 month and now started radiating to left leg with the bed affecting his mobility. Patient denies saddle anesthesia, urinary incontinence, bowel incontinence, fever chills, shortness of breath, chest pain, abdominal pain, nausea and vomiting, headache or other complaints. Patient will be admitted for further assessments. 01/04: Patient has spinal epidural abscess, we need to transfer patient for high level of care for spinal Neurosurgery. We are calling spinal ortho to support the case. Until then we will continue vancomycin cefepime. 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 PT needs to work less patient have effort only maximum out of room and back. We will continue pain control. We will add baclofen 10 twice daily, holding off any steroids which could worsen condition/infection. 01/05: Patient doing well no symptoms or red flags of spinal compression, patient walking has feeling in lower legs bilaterally present. Patient worked with PT and doing better today yesterday he will be PT and has significant pain, today not so much. Early communication with spinal ortho suggestive that we can keep patient and Tuesday we can review with spinal ortho. We will also start consult with ID for likely osteomyelitis of the lumbar spine. Continue IV antibiotics. 01/06: Patient is seen today, doing well. Worked with PT even better today. Using wheelchair otherwise. No spinal tenderness, paraspinal tenderness present. Lower extremities still function intact sensation and motor intact no bowel bladder loss. Tomorrow plan for spinal ortho and ID to evaluate patient, with outpatient plan. Patient will likely need long-term antibiotics for osteo myelitis in vertebrae. 01/07: Patient doing well, back pain tolerable, already on gabapentin no need to add Lyrica or Cymbalta. Patient takes Effexor, more reason to not add Cymbalta. We will continue to wait for eval by ID and spinal ortho. Continue IV antibiotics for diskitis vertebral osteomyelitis. 01/08: Spinal ortho things we can try IV antibiotics with help of ID. Waiting for ID consult to see patient. We will start PICC line in anticipation of IV antibiotics 6 weeks. 01/09: Continue patient IV antibiotics. spinal epidural abscess, lower suspicion. Today PICC line will be inserted, we will contact ID for antibiotics we will likely need vancomycin and ceftriaxone 6 weeks, with home health. Also ID to see patient today. Possible DC tomorrow. 01/10: dc plan done. see dc summary. due to insurance issues, discharge cannot be completed but medically cleared. 01/11: patient has tried contacting [facility] but they have not done any significant help, geriatric social work professor will continue to work to develop a plan. until then, continue iv abx ctx 2g daily, vanc 1.25g daily. unable to dc , no clear plan, social and CM working on discharge plan, still remains SNF iv abx vs HH iv abx. 01/14: No significant over the weekend. Patient denied SNF. As the SNF available is [facility], at this point this is the only safe discharge plan which patient will have to contest. We will continue with primary plan of discharge to SNF for IV antibiotics today. 01/15: Patient remains fell, motor sensation remains intact lower extremities. He has a lower extremity rash, we will try Benadryl cream scheduled daily. Changes are plan to home with home antibiotics and home health. Patient will be discharge today. Discharge summary updated see discharge plan below Diagnosis: Vertebral discitis Vertebral osteomyelitis ?Spinal epidural abscess, ruled out aram vmn Chronic back pain with radiculopathy History of sciatica PAD Diabetic neuropathy Discharge Plan: - home with HH and IV antibiotics as below - Continue home meds (aspirin 81, gabapentin 300 morning/600 nightly, lisinopril 40, melatonin nightly, Remeron 30 nightly, venlafaxine 37 mg daily, Jardiance 10 mg, metoprolol tartrate 50 mg twice daily, ) - start baclofen twice daily for 7 days and as needed thereafter - For pain okay to use Tylenol [id number] 1st line, ibuprofen 400 mg up to 3 times daily as needed as second-line, as 3rd line use prescribed Dale 5 mg up to 3 times daily as needed - Six weeks IV antibiotics (via picc line), Dr. Guthrei infectious disease following for outpatient. Ceftriaxone 2 g daily, vancomycin 1.25 g daily for 6 weeks. - Outpatient follow up with PCP 1-2 weeks - Follow up DC clinic - Follow up Infectious Disease Dr. Guthrie as scheduled. Diabetic diet Tele Full code Plan discussed with: Patient My Orders Orders - ELIAN LAUREN MD Procedure Category Date Status Time Discharge DISCHARGE 01/14/25 Transmitted 17:26 Vancomycin Per JAYDA 01/14/25 In Process Pharmacy [facility] 17:59 Vancomycin,Trough LAB 01/15/25 Logged 16:00 Date of Service: Jan 15, 2025 Billing Provider: ELIAN LAUREN MD Common Visit Codes: [id number] INP/OBS CARE(HIGH) ELIAN LAUREN MD Jan 15, 2025 11:59
[2025-01-15] MEDS: diphenhdrAMINE-ZINC ACETATE 1 APPLIC APPL TOP SCH (12:00)
== END 2025-01-15 18:40 | disposition home or self-care (01) | DRG 638 ==
LOC: ER 13:38 → OVERFLOW 17:50 → WEST WING 21:22
PROVIDERS: ADMIT Student in an Organized Health Care Education/Training Program; ATTEND Student in an Organized Health Care Education/Training Program
PROC: 02HV33Z Insertion of Infusion Device into Superior Vena Cava, Percutaneous Approach (ICD-10-PCS; principal; 2025-01-10)
PROC: B548ZZA Ultrasonography of Superior Vena Cava, Guidance (ICD-10-PCS; 2025-01-10)
DX: E11.69 Type 2 diabetes mellitus with other specified complication (principal); I13.0 Hypertensive heart and chronic kidney disease with heart failure and stage 1 through stage 4 chronic kidney disease, or unspecified chronic kidney disease; M46.26 Osteomyelitis of vertebra, lumbar region; N17.0 Acute kidney failure with tubular necrosis; M47.26 Other spondylosis with radiculopathy, lumbar region; M48.062 Spinal stenosis, lumbar region with neurogenic claudication; N18.32 Chronic kidney disease, stage 3b; E11.22 Type 2 diabetes mellitus with diabetic chronic kidney disease; E11.40 Type 2 diabetes mellitus with diabetic neuropathy, unspecified; E11.51 Type 2 diabetes mellitus with diabetic peripheral angiopathy without gangrene; G89.29 Other chronic pain; I50.9 Heart failure, unspecified; Z79.84 Long term (current) use of oral hypoglycemic drugs; Z79.899 Other long term (current) drug therapy
CPT/HCPCS: 36415; 36569; 72131; 72148; 76775; 76937; 80048; 80202; 81001; 82565; 82570; 82962; 83605; 84156; 85007; 85025; 85027; 85610; 86141; 87040; 93971; 94640; 97110; 97116; 97163; 97530; G0378; J1815